=== PATIENT | male | born 1945 | race Caucasian/White ===

== ENCOUNTER 2024-08-05 01:15 | Inpatient (IN) | payer OTHER, SELFPAY ==
[2024-08-04 21:58] VITALS: BMI 32.1
[2024-08-04 22:05] LABS: Glucose - Point of Care 179 mg/dl (70-99)
[2024-08-04 22:07] VITALS: BP 118/97
[2024-08-04 22:13] VITALS: BP 128/92
--- NOTE | 2024-08-04 22:14 | ED.GENMED ---
History of Present Illness
General
Chief Complaint: Chest Pain
Source: patient
Exam Limitations: none
Time Seen by Provider: 08/04/24 22:09
Nursing documentation reviewed up to this point in time: agreed with
History of Present Illness
History of Present Illness:
This is a 79-year-old gentleman with history of hypertension, hyperlipidemia, iqj-pefydry-mwolflham diabetes who presents with substernal chest pain that began around 1 hour ago accompanied with diaphoresis. Chest discomfort described as an ache,
radiates to bilateral arms, somewhat generalized as well as associated with diaphoresis. No history of similar episodes of chest pain. He admits to walking 5 miles today which is a bit longer than his usual 3 mile walk and admits to feeling
somewhat fatigued after his walk this afternoon but no chest pain nor palpitations nor other symptomatology during or after his walk this afternoon.
He denies dizziness nor lightheadedness, denies palpitations, denies shortness of breath.
Daily medications include lisinopril, metformin, atorvastatin.
He took a full-strength aspirin at home prior to arrival.
Past History
Past History
ED Past Medical History: HTN, Hypercholesterolemia, NIDDM and Other (BPH, kidney stones)
ED Past Surgical History: Urological (TURP) and Other (Hernia repair)
Social History
Tobacco: Non-smoker
Alcohol: Occasional
Drug: None
Personal:
Living: with family
Family History
Family History: Other (Noncontributory)
Phy Exam
Physical Exam
Physical Exam:
GENERAL: 79-year-old gentleman appears his stated age, awake and alert, mildly anxious but easily communicative and overall appears in no acute distress. is accompanying.
EYE: anicteric
NECK: Supple, nontender, no meningismus, no significant adenopathy. No JVD.
ENT: posterior pharynx is clear, oral mucosa is minimally dry. No rhinorrhea.
CARDIAC: Irregularly irregular, tachycardic at 120-130, no murmur.
LUNGS: Clear breath sounds bilaterally, no acute respiratory distress, no wheezes/rales/rhonchi
ABDOMEN: Rotund, soft, nondistended, without focal tenderness, normoactive BS.
NEUROLOGICAL: Alert and oriented x3, no focal neuro deficits.
SKIN: Cool and minimally diaphoretic, normal color, skin intact. No rash.
MUSCULOSKELETAL: No C/C/E. peripheral pulses are full and equal b/l. No palpable tenderness.
PSYCH: Normal and appropriate interaction.
Scores
Heart Score for Chest Pain Patients
STEMI patient?: Yes
Course
Orders/Labs/Results
Orders:
Orders
08/04/24 22:00
EKG [Electrocardiogram (*1)] Urgent
Reason for Study: Chest Pain
EKG- Treatment ONCE
08/04/24 22:09
EKG- Treatment ONCE
Complete Blood Count/With Diff Urgent
Comprehensive Metabolic Panel Urgent
Glycohemoglobin (HgbA1c) Urgent
PT/INR [Prothrombin Time] Urgent
Is patient on Coumadin/Warfarin?: No
Comment: [email or web address]
PTT Urgent
Troponin I Urgent
08/04/24 22:20
Metoprolol [Lopressor] 5 mg IV NOW STA
08/04/24 22:34
Verapamil Injectable [Isoptin/Verapamil Injection] 5 mg .ROUTE .STK-MED ONE
08/04/24 22:35
Fentanyl Citrate/Pf [Sublimaze] 100 mcg .ROUTE .STK-MED ONE
Heparin 10,000 units .ROUTE .STK-MED ONE
Heparin 1000 Units/500 ml [Heparin] 1,000 units in 500 ml .ROUTE .STK-MED
Heparin Sodium,Porcine/Ns/Pf [Heparin 2000 Units/1000 ml] 2,000 unit in 1,000 ml .ROUTE .STK-MED
Lidocaine HCl/Pf [Xylocaine-Mpf 1% Vial] 50 mg .ROUTE .STK-MED ONE
Midazolam HCl [Versed] 2 mg .ROUTE .STK-MED ONE
08/04/24 22:36
Nitroglycerin [Tridil] 1,500 mcg .ROUTE .STK-MED ONE
08/04/24 22:58
Heparin 5,000 units .ROUTE .STK-MED ONE
Ticagrelor [Brilinta] 180 mg .ROUTE .STK-MED ONE
08/04/24 23:00
Lidocaine HCl/Pf [Xylocaine-Mpf 1% Vial] 50 mg .ROUTE .STK-MED ONE
08/04/24 23:02
Amiodarone [Cordarone] 150 mg .ROUTE .STK-MED ONE
08/04/24 23:16
EPTIFIBATIDE 75 mg/100 mL [Integrilin] 75,000 mcg in 100 ml .ROUTE .STK-MED
Eptifibatide [Integrilin] 20 ml .ROUTE .STK-MED
08/05/24 00:23
Heparin 1000 Units/500 ml [Heparin] 1,000 units in 500 ml .ROUTE .STK-MED
08/05/24 00:48
Lidocaine HCl/Pf [Xylocaine-Mpf 1% Vial] 100 mg .ROUTE .STK-MED ONE
08/05/24 00:53
Heparin 10,000 units .ROUTE .STK-MED ONE
08/05/24 00:58
Admit Patient As Directed
Co-Sign Provider:
Level of Care: Inpatient admission
Assign to:: IVU
Physician / Group: Ramone/MARISABEL
Diagnosis: STEMI
Patient Condition: Fair
Reason for Hospitalization: STEMI
Expected length of stay greater than two midnights?: Yes
ELOS- Estimated Length of Stay in days: 4
I certify the patient meets the requirements for IP care: Yes
Reason for Overnight Stay: Standard of Care
Electrocardiogram (*1) Urgent
Reason for Study: Other
Other Reason for Exam: s/p intervention
Code Status As Directed
Resuscitation Status: Full Code
CARDIAC REHAB CONSULT Routine
Co-Sign Provider:
Cardiac Rehab & Exercise Evaluation Referral
Type of Cardiac Rehab Referral: Outpatient
Diagnosis: STEMI
Date of Diagnosis/Surgery: 08/05/2023
Referring Provider: Robert Pack
[facility] Intensive Cardiac Rehab Exercise Prescription
The above named person is capable of participating in an intensive cardiac rehab exercise therapy program
under the guidance of the [facility] cardiac rehab staff, outpatient registered dieticians and
supervision of a physician.
ICR Program Objectives:
Provide supervised exercise, cooking classes, nutritional counseling and healthy mind-set education to
improve the function/symptom free work capacity to an optimal level as well as control risk factors to
prevent the progression of heart disease. During the supervised exercise therapy session some or all of
the following may be included in the cardiac rehab session: ECG telemetry, BP, heart rate, rate of
perceived exertion, symptoms/tolerance, cholesterol testing and education. Exercise modalities may
include: treadmill, upright or recumbent bike, spin bike, rowing machine, elliptical, recumbent
elliptical, arm-bike machine, recumbent stepper and free weights.
Intensity:
All CR staff will use ACSM guidelines: Most patients will exercise in the following range: Heart Rate
Soso range of 40% to 80% & Oxygen Uptake reserve range 40-80% (VO2R). Peak heart rate and VO2 are
derived from the cardiac rehab submaximal graded exercise test at RPE of 13/14 out of 20. Initial
intensity range: RPE 11 to 14/20 and may expand to 11 to 16/20.
Duration & Frequency:
If appropriate the patient will be progressed up to 40 minutes of exercise therapy. Patients will be
instructed to come three times a week in cardiac rehab and at a home/other gym to achieve optimal
physical activity/exercies i.e. 4000-10,000 steps per day.
Education:
The patient will receive one-on-one education during their orientation, initial exercise evaluation, ITP
reassessments and discharge session. Each exercise session will also include an education class (30-40
minutes).
Acetaminophen [Tylenol] 650 mg PO Q4HPRN PRN
Morphine Sulfate 2 mg IV Q1HPRN PRN
Oxycodone/Acetaminophen [Percocet 5/325] 1 tablet PO Q4HPRN PRN
Activity As Directed
Activity Level: Bedrest
Comment: refer to hemostasis device used for bedrest duration, then ambulate ad darryl
Fleet Service Clerk Procedure As Directed
Cardiac Cath Procedure: percutaneous coronary intervention
Femoral Artery Hemostasis Method As Directed
Procedure performed:: Percutaneous Coronary Int
Type of femoral hemostasis method used:: Internal Closure Device
Duration of bedrest (hours):: 3
Call provider if:: hematoma present after hemostasis achieved
Head of Bed-Restrictions As Directed
Comment: may elevate head of bed 30 degrees
Intake/ Output As Directed
Frequency: Per unit guidelines
Notify MD As Directed
Notify physician if: immediately for chest pain or bleeding from access site(s)
Site Checks As Directed
Check access site for bleeding/hematoma: Yes
Comment: on arrival, Q15min x4, Q30min x2, Q1 hr x2, Q2 hr x2, Q4 hr or per
protocol
Vascular Checks As Directed
Location: distal to access site - pulse check
Frequency: Other
Comment: on arrival, Q15min x4, Q30min x2, Q1 hr x2, Q2 hr x2, Q4 hr or per protocol
Venous Foot Pumps As Directed
Location: Bilateral feet
Vital Signs As Directed
Frequency: Other
Additional Instructions:: on arrival, Q15min x4, Q30min x2, Q1 hr x2, Q2 hr x2, then Q4 hr or per unit
protocol
PRN Pain Medication Management As Directed
May give lesser potent ordered pain med per pt: Yes
preference::
Protocol:: Medication orders for pain may be administered in a
manner that supports deferring to patient preference
when the pt is:
- Requesting an ordered lesser potent pain medication.
Least to most potent pain medications are defined
as: acetaminophen < NSAID < tramadol < opioids
(morphine, oxycodone, hydromorphone).
- Requesting a lesser dose of the same medication IF
ORDERED.
- Requesting a less intrusive route of administration
if both routes are prescribed by the provider (PO <
IV).
08/05/24 00:59
DX Deep Vein Thrombosis Video Routine
08/05/24 01:00
0.9% Sodium Chloride 1000 ml [Nss] 1,000 ml IV PER PROTOCOL
Infusion rate in mL/kg/hr:: 1.5
Infusion rate in mL/hr:: 127
Duration of infusion (hours):: 5
EPTIFIBATIDE 75 mg/100 mL [Integrilin] 75,000 mcg in 100 ml IV ORDERED RATE
08/05/24 02:00
Flush (0.9% Sodium Chloride) [Flush (Nss)] See Dose Instructions IV PER PROTOCOL
08/05/24 04:33
Basic Metabolic Panel IN AM
Complete Blood Count/No Diff IN AM
Troponin I Q6H
08/05/24 06:00
Echo 2D MMode Color/Doppler IN AM
Reason for Study: STEMI
Electrocardiogram (*1) IN AM
Reason for Study: Other
Other Reason for Exam: s/p intervention
Cholesterol Lowering
At Your Request: Full Participation
Cholesterol Lowering: Sodium, 2 Gram
08/05/24 10:00
Troponin I Q6H
08/05/24 16:00
Troponin I Q6H
08/05/24 18:00
Atorvastatin [Lipitor] 40 mg PO QPM
08/05/24 20:00
Clopidogrel Bisulfate [Plavix] 600 mg PO ONCE ONE
08/05/24 22:00
Troponin I Q6H
08/06/24 01:00
Troponin I Q6H
08/06/24 06:00
Basic Metabolic Panel IN AM
Complete Blood Count/No Diff IN AM
08/06/24 08:00
Clopidogrel Bisulfate [Plavix] 75 mg PO DAILY
08/07/24 06:00
Basic Metabolic Panel IN AM
Complete Blood Count/No Diff IN AM
Abnormal Lab Results
08/04/24 08/04/24
22:02 22:09
WBC 11.9 H 10^3/uL
(4.8-10.8)
Absolute Neuts (auto) 6.9 H 10^3/uL
(1.4-6.5)
Absolute Lymphs (auto) 3.9 H 10^3/uL
(1.2-3.4)
Absolute Monos (auto) 1.0 H 10^3/uL
(0.1-0.6)
Potassium 3.4 L mmol/L
(3.5-5.1)
BUN 25 H mg/dl
(9-20)
Glucose 202 H mg/dl
(70-99)
POC Glucose 179 H mg/dl
(70-99)
08/04/24 22:09
08/04/24 22:09
Vital Signs
Initial and Last Documented VS:
Initial Vital Signs
BP Pulse Ox
118/97 98
08/04/24 22:07 08/04/24 22:07
Last Documented Vital Signs
Temp Pulse Resp BP Pulse Ox
97.5 F 83 20 113/72 98
08/05/24 06:58 08/05/24 06:00 08/05/24 06:58 08/05/24 04:00 08/05/24 06:58
MDM/Problems Addressed
Differential Diagnosis Includes:
EKG shows A-fib with rapid ventricular response at [address] segment elevation inferiorly, reciprocal depression anteriorly consistent with STEMI.
STEMI alert initiated promptly upon review of EKG.
Patient has taken full-strength aspirin at home.
BP somewhat soft 118 systolic. Will hold off on nitroglycerin and given IV normal saline bolus.
IV heparin bolus, chewable Brilinta load has been administered.
Case discussed with Dr. James, awaiting Fleet Service Clerk team and interventional list arrival.
Chronic conditions affecting care: DM, HTN and Other (Hyperlipidemia)
*Pulse Oximetry
Patient hypoxic: no
*EKG
Interpreted by ED Provider?: Yes
Interpretation: abnormal
Comparison EKG: changes noted (Atrial fibrillation with rapid ventricular response as well as acute STEMI/inferior wall [place] are new compared to previous EKG June 2020)
Rate: tachycardiac
Rhythm: a-fib
Interval: normal interval
Ischemia: ST elevation (ST segment elevation inferiorly reciprocal changes inferiorly consistent with STEMI)
*Cable Way Operator Interpretation
Rate: tachycardiac
Interpretation: abnormal
Rhythm: a-fib and PVC's (Multifocal PVCs with few couplets)
*Critical Care Note
Total Time (30-74mins, 75-104mins- exclusive of procedures): 30
comment:
Critical care statement: A total of 30 minutes of critical care time was provided for this patient. This includes management of unstable vital signs, evaluation of the patient at bedside, reviewing the patient's pertinent medical records, discussion
with consultants, review of old EKGs and review of pertinent medical records. This time with separate from time utilized to perform the aforementioned documented procedures
ED Attending Note
-
Portions of this chart may have been created with voice recognition software.� Occasional wrong word or��sound alike� substitutions may have occurred due to the inherent limitations of voice recognition software.
Discharge Plan
Departure
Patient Disposition: Admit
Date of Disposition: 08/04/24
Time of Disposition: 22:25
Admit to: carpenter/labor
Admit to doctor: Ramone
Presentation/result/management discussed w/ accepting MD/DO: cardioinvasive
Condition: Serious
Discharge Problem:
ST elevation (STEMI) myocardial infarction, New onset A-fib with RVR
Interventions
Interventions:
*General Assessment Last Done: 08/04/24 22:37
*ED COVID-19 Vaccine History Last Done: 08/04/24 22:37
*Nursing Disposition Last Done: 08/04/24 23:01
ED- Cardiac Assessment Last Done: 08/04/24 22:17
Discharge Date and Time
Discharge Date/Time: 08/04/24 23:01
[2024-08-04 22:15] LABS: % Basophils 0.3 % (0-2); % Eosinophils 0.5 % (0-6); % Immature Granulocytes 0.3 % (0-0.5); % Lymphocytes 32.5 % (20.5-51.1); % Monocytes 8.7 % (1.7-9.3); % Neutrophils 57.7 % (42.2-75.2); Absolute Eosinophils 0.1 10^3/uL (0-0.7); Absolute Lymphocytes 3.9 10^3/uL (1.2-3.4); Absolute Neutrophils 6.9 10^3/uL (1.4-6.5); Hematocrit 45.4 % (39.0-52.0); Hemoglobin 15.7 g/dL (13.0-18.0); Mean Corp Hgb Conc. 34.6 g/dL (33.0-37.0); Mean Corpuscular Hgb 28.5 pg (27.0-31.0); Mean Corpuscular Volume 82.5 fL (80.0-94.0); Mean Platelet Volume 9.7 fL (7.4-10.4); Nucleated Red Blood Cells % 0 % (-); Platelet Count 162 10^3/uL (130-400); White Blood Cell Count 11.9 10^3/uL (4.8-10.8)
[2024-08-04] MEDS: LOPRESSOR 5 MG IV (22:23)
[2024-08-04 22:27] LABS: INR 0.97; PT 13.4 Sec (11.4-14.6)
[2024-08-04 22:28] LABS: APTT 25.9 Sec (23.4-35.0)
[2024-08-04 22:29] LABS: ALT (SGPT) 27 U/L (0-50); AST (SGOT) 24 U/L (17-59); Albumin 4.3 g/dl (3.5-5.0); Alkaline Phosphatase 59 U/L (38-126); Blood Urea Nitrogen 25 mg/dl (9-20); Carbon Dioxide 29 mmol/L (22-30); Chloride 105 mmol/L (98-107); Estimated Creatinine Clearance 61 ml/min; Glucose 202 mg/dl (70-99); Potassium 3.4 mmol/L (3.5-5.1); Sodium 145 mmol/L (135-145); Total Bilirubin 0.7 mg/dl (0.2-1.3); Total Protein 6.7 g/dl (6.3-8.2); eGFR > 60.00
[2024-08-04 22:31] VITALS: BP 111/83
[2024-08-04 22:39] LABS: Troponin I 0.033 ng/ml
--- NOTE | 2024-08-04 22:40 | HPS.HSE ---
Family Physician
-
Family Physician: Nora Gonzalez
Chief Complaint
-
Chest pain, new atrial fibrillation.
History of Present Illness
79 y/o male with NIDDM, HTN, HLD presenting after developing atypical chest discomfort associated with diaphoresis. The patient and his went on a vigorous 5 mile walk earlier today. Earlier this evening, he developed chest discomfort which he
believed was related to muscle strain. He admitted to an episode of diaphoresis. He discussed the situation with his and they elected to come to [facility] for further evaluation, where he experienced a second episode of diaphoresis. Initial EKG
shows inferoposterior STEMI with new atrial fibrillation with RVR and the clinical lab scientist was activated. At the time of evaluation, his chest discomfort has largely resolved. Denies any palpitations and is unaware that he is in AF.
Medical History
Past Medical History
Past Medical History: Reports HTN, Hypercholesterolemia, NIDDM and Renal Failure (Stage 2)
Past Surgical History: Reports None
Social History
Tobacco: Non-smoker
Alcohol: Occasional
Drug: None
Personal:
Living: With Family
Employment: Retired
Family History
Family History: Not pertinent
Allergies / Home Medications
Allergies reflects when Allergies were last updated in [employer].
Home Medications with original date entered in [employer]
Allergy/Medication List:
Home Medications:
1. Atorvastatin 20 mg daily.
2. Lisinopril/HCTZ 20/12.5 mg daily.
3. Metformin 500 mg BID.
Allergies:
NKDA
Review of Systems
-
History Source: Patient and Family
Constitutional: Reports No Symptoms
EENT: Reports No Symptoms
Respiratory: Reports No Symptoms
Cardiac: Reports Chest Pain and Diaphoresis
Abdomen/GI: Reports No Symptoms
: Reports No Symptoms
Musculoskeletal: Reports Muscle Pain
Skin: Reports No Symptoms
Neurological: Reports No Symptoms
Endocrine: Reports No Symptoms
Hematologic/Lymphatic: Reports No Symptoms
Psych: Reports No Symptoms
Physical Exam
Vital Signs
Vital Signs
Pulse Resp BP Pulse Ox
116 21 128/92 95
08/04/24 22:23 08/04/24 22:15 08/04/24 22:23 08/04/24 22:15
Physical Exam
General: Well Developed, Well Nourished, No Apparent Distress, Comfortable, Conversant and Good Appetite
HEENT: NormoCephalic, Anicteric, Moist mucous membranes, Atraumatic, Good Dentition, PERRLA, [place] Conjunctivae, No Ptosis, Nose Appears Normal and Ears Appear Normal
Respiratory: Clear and Non Labored Respirations
Cardiac: S1/S2, Irregular Rhythm and Tachycardia
Breast: Deferred by me
GI: Soft, Non Tender, Non Distended, Normal Bowel Sounds and No Hepatosplenomegaly
Rectal: Deferred by Provider
Genito-urinary: Deferred by me
Musculoskeletal: No Clubbing, No Cyanosis and No Edema
Skin: Warm and Dry
Neuro: AO x 3, No Motor Deficits, Nonfocal/grossly intact and Cranial Nerves Intact
Hematologic/Lymphatic: No Lymphadenopathy
Psych: Calm and Intact Judgment/Insight
Laboratory Results
-
08/04/24 22:09
08/04/24 22:09
Laboratory Results
PT 13.4 Sec (11.4-14.6) 08/04/24 22:09
INR 0.97 08/04/24 22:09
APTT 25.9 Sec (23.4-35.0) 08/04/24 22:09
Total Bilirubin 0.7 mg/dl (0.2-1.3) 08/04/24 22:09
AST 24 U/L (17-59) 08/04/24 22:09
ALT 27 U/L (0-50) 08/04/24 22:09
Alkaline Phosphatase 59 U/L (38-126) 08/04/24 22:09
Troponin I 0.033 ng/ml 08/04/24 22:09
Data Reviewed
-
Medical Tests (Nuc Med, Echo, EKG etc): Image Personally Visualized and interpreted and Report Reviewed by me
Lab Data: Labs Reviewed by me
Old Records: Reviewed
Impression/Plan
-
Impression/Plan: 79 y/o male with HTN, HLD, NIDDM admitted with inferoposterior STEMI and new atrial fibrillation.
#STEMI
-Acute, threat to life.
-Plan for emergent cardiac catheterization with ad hoc PCI.
-Heparin, aspirin given in ER.
-Consent signed and on the chart.
-Further instructions will follow.
#Atrial fibrillation
-New diagnosis.
-Unclear duration.
-We will establish rate control, likely metoprolol.
-CHADS2-Vasc = 4-5 (HTN, Age x2, DM, presumably vascular disease).
-He will need therapeutic anticoagulation.
-STEMI could be embolic.
#HTN
#HLD
#NIDDM
[2024-08-05] VITALS (16 sets, daily range): BP systolic 95–127; BP diastolic 69–79; BMI 32.1
--- NOTE | 2024-08-05 01:04 | ITS.CL.ANGIO ---
[facility] - Angioplasty
Angioplasty
Procedure Report:
CARDIAC CATHETERIZATION REPORT
Date of Procedure: 08/04/2024
Referring: [facility] emergency room.
INDICATION: Inferoposterior ST elevation myocardial infarction.
PROCEDURE:
1. Left heart catheterization
2. Coronary angiography.
3. Aspiration thrombectomy.
4. Successful CSI orbital atherectomy.
5. Intravascular ultrasound.
6. Successful PCI of the ostial and proximal circumflex.
7. Chemical cardioversion with amiodarone bolus.
A total of 114 minutes of procedural/moderate sedation was utilized. An independent medical office worker was present to assist with and help manage the patient's level of consciousness and physiologic status.
ACCESS:
1. 6 Spanish right common femoral artery using a modified Seldinger technique with a micropuncture kit under ultrasound guidance. Ultrasound image obtained.
CATHETERS:
1. 5 Spanish JR4.
2. 5 Spanish JL 3.5.
3. 6 Spanish EBU 4.0 guiding catheter.
HEMODYNAMIC DATA
Weight (kg): 84.4
AO (s/d/x, mmHg): 97/71/79
LV (s/x mmHg): 97/22
LEFT VENTRICULOGRAPHY: Not performed.
CORONARY ANGIOGRAPHY
Dominance: Right.
Left Main: Normal size, bifurcating vessel. There are luminal irregularities.
LAD: Normal size vessel giving rise to 1 significant diagonal. There is a densely calcified, 70% lesion in the proximal vessel. There are densely calcified, moderate lesions throughout the remainder of the vessel including in the large diagonal.
Ramus: Congenitally absent.
Circumflex: Large size, nondominant vessel giving rise to 2 obtuse marginals. OM1 is a sub-1 mm vessel. OM 2 is a large vessel supplying the majority of the inferolateral wall. There is a densely calcified, 100% lesion in the ostium of the left
circumflex that continues into a densely calcified 70% lesion in the ostium of OM 2. Initially, there is VIJAYA 0 flow in the circumflex on diagnostic injection. Flow has improved to VIJAYA II by the next injection.
RCA: Medium size, dominant vessel with a small RPDA. There is a densely calcified 70% lesion in the proximal margin of the RCA. There is a long, 50% lesion in the mid RCA as it approaches the crux. There is a 50% lesion in the distal RCA
spanning the origin of the RPDA, which is a 1 mm vessel.
INTERVENTION(S)
1. Aspiration thrombectomy of the left circumflex artery.
2. CSI orbital atherectomy of the left circumflex artery and second obtuse marginal (CSI diamondback).
3. Intravascular ultrasound of the left main coronary artery, the proximal left circumflex artery and the proximal margin of OM 2.
4. Successful PCI of the 95% ostial circumflex lesion spanning the 70% lesion into the OM 2 (Medtronic [place] 4.0 x 38 LOLA, postdilated with a 4.0 NC balloon) with reduction in stenosis to 0%, restoring VIJAYA-3 flow.
Narrative:
The decision was made to proceed with percutaneous coronary intervention. The diagnostic catheter was removed over a wire and a 6Fr EBU 4.0 guiding catheter was advanced to the aortic root and seated in the left main coronary artery. Angiography
showed improvement of flow through the ostial left circumflex from VIJAYA 0 to now VIJAYA II without specific intervention. Additional heparin was given and a Power Turn Flex wire was advanced into the distal OM 2.
Given the hazy nature of the lesion with a new diagnosis of atrial fibrillation, I felt compelled to consider the diagnosis of embolic occlusion. The decision was made to perform aspiration thrombectomy. An YANIRA catheter was prepped and flushed on
the back table then connected to a syringe which was pulled to negative. The catheter was advanced into the left main coronary artery. The stopcock was opened to the vacuum syringe and the catheter was passed into the thrombotic segment, though
the ability to progress beyond the lesion was quite limited. The catheter was withdrawn from the guiding catheter, maintaining negative pressure. The contents were emptied into the filter basket. No obvious thrombus was observed. Repeat
angiography showed no significant difference, suggesting that this was not a primary embolic phenomenon.
A 2.0 x 12 semicompliant balloon was advanced, but would not cross the lesion. The semicompliant balloon was withdrawn and a 1.5 x 12 semicompliant balloon was advanced, at this time passing into the lesion with some difficulty. The ostial
circumflex lesion was predilated with a 1.5 x 12 semi-compliant balloon to 12 irving. The 1.5 x 12 semicompliant balloon was withdrawn and the 2.0 x 12 semicompliant balloon was advanced. The lesion was dilated to 12 irving but the balloon ruptured.
The semicompliant balloon was withdrawn and a 2.0 x 20 noncompliant balloon was advanced. The ostial circumflex lesion was dilated to 16 irving. Eptifibatide was started as a double bolus and drip.
At this point, it became very clear that plaque modification would become necessary for meaningful expansion of any stent. A quick cross microcatheter was advanced over the power turn flex wire and into the distal OM 2. The power turn flex wire
was removed and a Viper wire was advanced. The microcatheter was removed.
The CSI orbital atherectomy device was prepped on the back table and flushed with Viper slide. The device was loaded onto the Viper wire and brought up to the level of the catheter. An out of body test was successful. The CSI device was advanced
over the Viper wire up to the level of the coronary artery. Once the crown was positioned in place, orbital atherectomy was performed in the standard fashion with slow smooth passes. After each pass, the patient was given nitroglycerin 100 mcg
intracoronary. Brief angiography was performed to rule out dissection and perforation. The process was repeated 3 times. Ultimately, the crown passed through the densely calcified lesion. The CSI device was withdrawn over the Viper wire.
The Viper wire was exchanged for the power turn Flex wire in the distal OM 2. A BMW wire was advanced into the LAD for protection given the ostial nature of the circumflex lesion and potential for unfavorable plaque shift. A 3.0 x 20 noncompliant
balloon was advanced and the entire circumflex/OM 2 lesion was dilated to 18 irving.
The decision was made to perform intracoronary imaging. An IVUS catheter was advanced through the guiding catheter and into the ostium of the artery. Ring down was performed once the imaging crystal was no longer inside of the guiding catheter. The
IVUS catheter was advanced into the mid OM 2. Intravascular ultrasound was performed in a retrograde fashion using a slow pullback. Intracoronary imaging demonstrated densely calcified atherosclerotic disease disease in the proximal OM 2 and
throughout the entire circumflex all the way back to the ostium, ending at the left main coronary artery. Vessel sizing was performed.
The IVUS catheter was removed and a Medtronic [place] Emery 4.0 x 38 drug-eluting stent was advanced. Unfortunately, the stent would not pass into the distal vessel without support. The BMW wire was withdrawn and a guide liner was advanced over
the 2.0 x 20 NC balloon with a sheathing technique. The guide liner was seated in the circumflex beyond the lesion but proximal to OM 2. With the GuideLiner in place, the stent was readvanced, this time delivering 2 the circumflex/OM 2 with ease.
The GuideLiner was pulled back into the guide. Meticulous care was taken while positioning the stent, ensuring that the entire lesion was covered while the stent extended into the left main coronary artery by only 1 self. Once we were satisfied
with the position, the stent was deployed at 12 atmospheres. Injection of the left main coronary artery while the stent balloon was inflated showed that the left anterior descending artery maintains VIJAYA-3 flow. The stent balloon was removed. A
4.0 x 20 noncompliant balloon was advanced into the stent and the stent was postdilated to 14 atmospheres.
IVUS was repeated demonstrating good stent apposition throughout the entire OM2 and circumflex. There were 2 areas of mild stent underexpansion in the midportion of the stent as well as in the ostium of the stent. The 4.0 x 20 NC balloon was
readvanced. The midportion of the stent was postdilated to 18 irving. The ostium of the stent was postdilated to 20 irving. The noncompliant balloon was withdrawn.
Angiography was performed in orthogonal views, confirming good stent expansion and an excellent angiographic result without unfavorable plaque shift into the LAD. The coronary wire was withdrawn and the guide was disengaged from the artery. The
catheter was removed over a standard J-wire. Given the nebulous nature of the right coronary artery ostial lesion, the decision was made to reimage this artery given his persistent ST segment elevation. The diagnostic JR4 catheter was readvanced
and seated in the ostium of the right coronary artery. An angiogram was taken with partial disengagement in an KUWAITI caudal view, confirming a calcified, 70% lesion with VIJAYA-3 flow throughout the remainder of the vessel.
Closure Device: 6 Spanish Angio-Seal.
Radiation (mGy): 1689.41
DAP (cm2.Gy): 98.0009
Fluoroscopy time (minutes): 28.5
CONCLUSIONS
1. Right dominant circulation with a 70% lesion in the proximal margin of the RCA, along, 50% lesion in the mid RCA as it approaches the crux, a 50% lesion in the distal RCA spanning the origin of the small RPDA, a densely calcified 70% lesion in
the proximal LAD with densely calcified moderate disease throughout the remainder of the LAD and large diagonal and a large size, nondominant circumflex with a densely calcified initially 100% lesion in the ostium that progresses into a densely
calcified 70% lesion in the ostium of OM 2, status post aspiration thrombectomy (YANIRA catheter), CSI orbital atherectomy (CSI diamondback) and successful IVUS guided PCI (Medtronic [place] Emery 4.0 x 38 LOLA, postdilated with a 4.0 NC balloon) with
reduction in the circumflex stenoses to 0%, restoring VIJAYA-3 flow.
2. Moderately elevated filling pressures (LVEDP = 22 mmHg at 84.4 kg).
3. Paroxysmal atrial fibrillation, converted after amiodarone bolus.
RECOMMENDATIONS:
1. Expectant management after cardiac catheterization via right common femoral approach.
2. Limited weight bearing on the right wrist for one week.
3. Antiplatelet therapy with aspirin, eptifibatide. The patient received ticagrelor in the emergency room. Given his paroxysmal atrial fibrillation which will require anticoagulation, we will hold further ticagrelor and load clopidogrel tomorrow
evening (600 mg at 8 PM) followed by a standard dose on 08/06/2024 at 8 AM. Maintain clopidogrel for at least 12 months.
4. Plan for return to [facility] for further evaluation of the proximal and mid RCA lesions as well as the proximal LAD lesion. The LAD appears a reasonable surgical target. The RPDA is generally a small caliber vessel in its distal margin.
5. Given the patient's paroxysmal atrial fibrillation with planned return to [facility], any further atrial fibrillation should be managed with a heparin drip. When procedures have concluded, we can transition to a direct oral anticoagulant and
discontinue aspirin.
6. Aggressive secondary prevention with high-dose, high potency statin. Goal LDL <55.
7. GDMT/OMT as hemodynamics will tolerate.
8. Echocardiogram ordered and pending.
9. Referral to cardiac rehab.
Copy to: Nora Gonzalez M.D.
Robert Pack DO, FACC, FACP
--- NOTE | 2024-08-05 03:23 | DOWNTIME ---
There was a Second Sight Client Wheel Cutter Downtime on 08/05/2024 from 0200 to 08/06/2023 at 0318 . Downtime documentation of patient's care, including medication administrations, has been reconciled in the electronic record per guidelines. Refer to the
patient's paper chart under the miscellaneous tab to see printed paper medication records and downtime forms.
[2024-08-05 04:48] LABS: Hematocrit 42.1 % (39.0-52.0); Hemoglobin 14.6 g/dL (13.0-18.0); Mean Corp Hgb Conc. 34.7 g/dL (33.0-37.0); Mean Corpuscular Hgb 28.7 pg (27.0-31.0); Mean Corpuscular Volume 82.7 fL (80.0-94.0); Platelet Count 161 10^3/uL (130-400); Red Blood Cell Count 5.09 10^6/uL (4.70-6.10); White Blood Cell Count 12.6 10^3/uL (4.8-10.8)
[2024-08-05] MEDS: INTEGRILIN 100 IV ×2 (04:49→11:56)
--- NOTE | 2024-08-05 04:53 | PTCARENOTE ---
Pt assisted oob to void. gait steady. No c/o cp. Pt does have dry cough and mild indigestion. Right femoral site remains intact no active bleeding or hematoma. am labs sent. Integrilin drip continued.
[2024-08-05 05:14] LABS: Blood Urea Nitrogen 23 mg/dl (9-20); Calcium 8.9 mg/dl (8.4-10.2); Carbon Dioxide 25 mmol/L (22-30); Chloride 108 mmol/L (98-107); Estimated Creatinine Clearance 76 ml/min; Glucose 222 mg/dl (70-99); Potassium 3.5 mmol/L (3.5-5.1); Sodium 144 mmol/L (135-145); eGFR > 60.00
--- NOTE | 2024-08-05 07:15 | W.PN.CD ---
Today's Communication / Plan
-
Start metoprolol succinate 25 mg daily.
Maintain eptifabitide for a total of 18 hours.
Load with clopidogrel 600 mg at 8PM.
Continue aspirin 81 mg daily.
Echocardiogram pending.
NPO after MN for possible repeat cath/PCI of LAD/RCA tomorrow. This may be deferred.
Hold metformin.
SSI for glucose.
Fasting lipid panel.
Trend troponin to peak.
Impression / Plan
-
Impression/Plan: 79 y/o male with HTN, HLD, NIDDM admitted with inferoposterior STEMI and new atrial fibrillation.
#STEMI
-Acute, threat to life.
-S/P CSI, PCI to ostial LCx (Medtronic [place] 4.0 x 38 LOLA, post dilated with 4.0 NCB) with reduction in stenosis to 0%, restorting VIJAYA III flow.
-Troponin up to 74. Trend to peak.
-Complicated antiplatelet picture in the context of new atrial fibrillation. Continue aspirin 81 mg daily for the time being. Hold further ticagrelor. Clopidogrel 600 mg load at 8 PM, then 75 mg daily thereafter.
-The patient will require therapeutic anticoagulation for PAF but also needs staged procedures. When therapeutic AC is started, we will D/C aspirin.
-Maintain eptifibatide for a total of 18 hours.
-Echocardiogram pending.
#Residual CAD
-Chronic.
-70+%, densely calcified proximal LAD, 70% proximal RCA, 50% mRCA, 50% dRCA.
-Discussed with CTS and IC colleagues.
-Tentative plan for staged PCI revascularization of the LAD and RCA on a date TBD.
-NPO after MN for possible PCI tomorrow, though this may be deferred to an elective, outpatient procedure within the next 2 weeks.
#Atrial fibrillation
-New diagnosis, unclear duration.
-Currently in NSR.
-Start metoprolol succinate 25 mg daily.
-CHADS2-Vasc = 4-5 (HTN, Age x2, DM, presumably vascular disease).
-He will need therapeutic anticoagulation but this is being held until final determination is made regarding timing of staged PCI.
#HTN
-Chronic, currently controlled.
-Monitor response to metoprolol prior to resuming home medications.
#HLD
-Chronic.
-Fasting lipid panel pending.
-Increased atorvastatin dose from 20 mg to 40 mg daily.
-Goal LDL < 55.
#NIDDM
-Chronic.
-HbA1c pending.
-Hold metformin for the time being in light of contrast exposure.
-SSI.
-He would benefit from GLP-1 analog at the time of discharge.
#PPx
-SCD's for DVT/VTE.
-No role for PPI.
#Dispo
-IVU status.
-Full code.
Subjective/Interval History:
Admitted with inferoposterior STEMI, found to have at least moderate, diffuse disease with an acute occlusion of the ostial LCx.
Successful PCI with adventist of VIJAYA III flow.
Troponin up to 74.
DATA:
Cardiac Catheterization/PCI, 08/04/2024:
CONCLUSIONS
1. Right dominant circulation with a 70% lesion in the proximal margin of the RCA, along, 50% lesion in the mid RCA as it approaches the crux, a 50% lesion in the distal RCA spanning the origin of the small RPDA, a densely calcified 70% lesion in
the proximal LAD with densely calcified moderate disease throughout the remainder of the LAD and large diagonal and a large size, nondominant circumflex with a densely calcified initially 100% lesion in the ostium that progresses into a densely
calcified 70% lesion in the ostium of OM 2, status post aspiration thrombectomy (YANIRA catheter), CSI orbital atherectomy (CSI diamondback) and successful IVUS guided PCI (Medtronic [place] 4.0 x 38 LOLA, postdilated with a 4.0 NC balloon) with
reduction in the circumflex stenoses to 0%, restoring VIJAYA-3 flow.
2. Moderately elevated filling pressures (LVEDP = 22 mmHg at 84.4 kg).
3. Paroxysmal atrial fibrillation, converted after amiodarone bolus.
Physical Exam
Vital Signs/Labs
Vital Signs
Temp Pulse Resp BP Pulse Ox
36.4 C 83 20 113/72 98
08/05/24 06:58 08/05/24 06:00 08/05/24 06:58 08/05/24 04:00 08/05/24 06:58
08/03/24 08/04/24 08/05/24
11:59 11:59 11:59
Actual Weight 84.7 kg
08/05/24 04:33
08/05/24 04:33
PT 13.4 Sec (11.4-14.6) 08/04/24 22:09
INR 0.97 08/04/24 22:09
APTT 25.9 Sec (23.4-35.0) 08/04/24 22:09
LAB Results
08/04/24 08/05/24
22:09 04:33
Troponin I 0.033 74.600 H* D
Physical Exam
Constitutional: No acute distress and Comfortable
EENT: Anicteric and Moist mucous membranes
Cardiovascular: Rhythm & rate is regular, Pedal edema is absent, JVD pressure is normal, S1S2 is normal and Murmur/rub/gallop absent
Respiratory: Respiratory effort normal, Lungs clear to auscul., Wheeze Absent, Crackles Absent and Rhonchi Absent
GI: Soft, Distention absent, Flat, Non tender and Normal bowel sounds
Neuro/Psych: AO x 3
Other: Cath Site (Right femoral access site is C/D/I.)
Data Reviewed
-
Date of Service: August 05, 2024
Medical Decision Making: Reviewed Test Results, Tests Ordered, Independent Historian Assessment and Test Interpretation
EKG: Tracing Personally Visualized and interpreted and Report Reviewed by me
Echo: Ordered by me
X-Ray/CT/US/MRI/NUC/PET: Image Personally Visualized and interpreted and Report Reviewed by me
Medical Tests (PFT, Pathology etc): Image Personally Visualized and interpreted, Report Reviewed by me, Discussed with Physician, Discussed with Patient and Discussed with Family
Labs: Labs Reviewed by me and Labs Ordered by me
Old Records: Reviewed
[2024-08-05 08:23] LABS: HDL Cholesterol 44 mg/dl; LDL Cholesterol, Calculated 76 mg/dl; Total Cholesterol 144 mg/dl (50-199); Triglyceride 122 mg/dl (10-149); Very Low Density Lipoprotein 24 mg/dl (0-30)
[2024-08-05] MEDS: LOW STRENGTH ASPIRIN 81 MG PO (08:53)
[2024-08-05] MEDS: TOPROL XL 25 MG PO (08:53)
--- NOTE | 2024-08-05 09:29 | CM ---
Priced the following medication thru patient's insurance plan, -
Wolf, estimated to cost $145/30 d supply.
Pt. would qualify for a free 30 d coupon. He is not eligible for any other coupons.
[2024-08-05 10:21] LABS: Glycohemoglobin (HgbA1c) 8.6 % (4.0-5.6)
[2024-08-05 10:38] LABS: Glucose - Point of Care 195 mg/dl (70-99)
--- NOTE | 2024-08-05 12:07 | PTCARENOTE ---
Rec'd pt at handoff. Tele- SR w/ occ. PVCs. Assessment completed as documented. R groin is c/d/i and ecchymotic. No hematoma/bleeding noted. Integrilin gtt infusing at 13 ml/hr per order. See MAR. Pt ambulatory around room w/ no complaints at this
time. Plan of care reviewed w/ pt and verbalizes understanding.
--- NOTE | 2024-08-05 12:22 | CM ---
CM following for DC planning needs.
Met w/ patient at bedside to complete initial assessment.
Pt. resides in a private, [address] [place] [address] w/ spouse. He is functionally indep. at baseline w/ ADLs, mobility without the use of any assisted device.
Pt. has RX plan and uses [facility] in [place] for prescription needs.
We discussed cost of Eliquis for both 30 d and 90 d pricing. I encouraged pt. to discuss any concerns or questions w/ medical team.
Antic. DC plan is for home without needs.
Will follow.
[2024-08-05] MEDS: KCL 20 MEQ PO (14:32)
[2024-08-05 14:36] LABS: Glucose - Point of Care 203 mg/dl (70-99)
[2024-08-05] MEDS: NOVOLOG FLEXPEN-MODERATE RESISTANCE 3 UNITS SC (14:38)
[2024-08-05 16:41] LABS: Glucose - Point of Care 157 mg/dl (70-99)
[2024-08-05] MEDS: LIPITOR 40 MG PO (17:58)
[2024-08-05] MEDS: NOVOLOG FLEXPEN-MODERATE RESISTANCE 1 UNITS SC (18:25)
[2024-08-05 18:29] LABS: Glucose - Point of Care 173 mg/dl (70-99)
[2024-08-05] MEDS: PLAVIX 600 MG PO (20:36)
--- NOTE | 2024-08-05 21:44 | PTCARENOTE ---
Rec'd pt at change of shift. Pt AAO*3, VSS, and SR on TELE monitor with PVC's. Pt denies any pain or discomfort. R femoral site CDI, pt verbalized understanding of activity restriction. Pt resting with call joseph in reach and NPO at midnight for
possible cath in AM. Pt now resting with call joseph in reach and plan of care ongoing. See MAR and flowchart for full pt care and assessment.
[2024-08-05 22:15] LABS: Glucose - Point of Care 174 mg/dl (70-99)
[2024-08-06] VITALS (23 sets, daily range): BP systolic 91–144; BP diastolic 66–100; BMI 31.8
[2024-08-06 03:41] LABS: Hematocrit 41.4 % (39.0-52.0); Hemoglobin 14.2 g/dL (13.0-18.0); Mean Corp Hgb Conc. 34.3 g/dL (33.0-37.0); Mean Corpuscular Hgb 28.4 pg (27.0-31.0); Mean Corpuscular Volume 82.8 fL (80.0-94.0); Mean Platelet Volume 10.2 fL (7.4-10.4); Platelet Count 160 10^3/uL (130-400); Red Cell Dist. Width 14.6 % (11.5-14.5); White Blood Cell Count 13.1 10^3/uL (4.8-10.8)
[2024-08-06 04:01] LABS: Blood Urea Nitrogen 22 mg/dl (9-20); Calcium 9.6 mg/dl (8.4-10.2); Carbon Dioxide 21 mmol/L (22-30); Chloride 112 mmol/L (98-107); Estimated Creatinine Clearance 76 ml/min; Glucose 189 mg/dl (70-99); Potassium 3.9 mmol/L (3.5-5.1); Sodium 142 mmol/L (135-145); eGFR > 60.00
--- NOTE | 2024-08-06 07:44 | W.PN.CD ---
Today's Communication / Plan
-
Staged PCI of LAD today. Anticipate staged iFR/PCI of RCA in ~ 2 weeks.
D/C aspiring and start DOAC (apixaban 5 mg BID) tonight vs. tomorrow morning.
Start dapagliflozin 10 mg daily. Case management consult for medication costs.
Start lisinopril 2.5 mg daily.
Repeat echo in 90 days.
Impression / Plan
-
Impression/Plan: 79 y/o male with HTN, HLD, NIDDM admitted with inferoposterior STEMI and new atrial fibrillation.
#STEMI
-Acute, threat to life.
-S/P CSI, PCI to ostial LCx (Medtronic [place] 4.0 x 38 LOLA, post dilated with 4.0 NCB) with reduction in stenosis to 0%, restorting VIJAYA III flow.
-Troponin peaked at 76.
-Continue DAPT with aspirin and clopidogrel. This will be transitioned to clopidogrel and DOAC (no aspirin) post PCI. First dose of DOAC can be this evening after hemostasis achieved or tomorrow morning.
-Continue metoprolol, atorvastatin.
#Residual CAD
-Chronic.
-70+%, densely calcified proximal LAD, 70% proximal RCA, 50% mRCA, 50% dRCA.
-Discussed with CTS and IC colleagues.
-Tentative plan for staged PCI revascularization of the LAD today.
-Outpatient/elective repeat cath with iFR/PCI of the RCA in ~ 2 weeks.
#ICMO
-New diagnosis.
-LVEF 45%
-Severe diastolic dysfunction on echo.
-Continue metoprolol.
-Start dapagliflozin 10 mg daily and lisinopril 2.5 mg daily.
-We can start furosemide if he shows clinical evidence of HF.
-Repeat echocardiogram in 90 days.
#Atrial fibrillation
-New diagnosis, unclear duration.
-Currently in NSR.
-Start metoprolol succinate 25 mg daily.
-CHADS2-Vasc = 4-5 (HTN, Age x2, DM, presumably vascular disease).
-He will need therapeutic anticoagulation but this is being held until final determination is made regarding timing of staged PCI.
#HTN
-Chronic, currently controlled.
-Monitor response to metoprolol prior to resuming home medications.
#HLD
-Chronic.
-Total cholesterol = 144, LDL = 76, HDL = 44, Triglycerides = 122.
-Continue atorvastatin 40 mg daily.
-Goal LDL < 55.
#NIDDM
-Chronic.
-HbA1c 8.6%.
-Hold metformin for the time being in light of contrast exposure.
-SSI.
-Starting dapagliflozin 10 mg daily for ICMO.
-He would benefit from GLP-1 analog at the time of discharge.
#PPx
-SCD's for DVT/VTE.
-No role for PPI.
#Dispo
-IVU status.
-Full code.
-Discharge planning (likely tomorrow).
Subjective/Interval History:
Loaded with clopidogrel yesterday evening.
Eptifibatide completed.
Troponin peaked at 76.4.
Echo shows LCx hypokinesis/akinesis and stage 3 diastolic dysfunction.
DATA:
Cardiac Catheterization/PCI, 08/04/2024:
CONCLUSIONS
1. Right dominant circulation with a 70% lesion in the proximal margin of the RCA, along, 50% lesion in the mid RCA as it approaches the crux, a 50% lesion in the distal RCA spanning the origin of the small RPDA, a densely calcified 70% lesion in
the proximal LAD with densely calcified moderate disease throughout the remainder of the LAD and large diagonal and a large size, nondominant circumflex with a densely calcified initially 100% lesion in the ostium that progresses into a densely
calcified 70% lesion in the ostium of OM 2, status post aspiration thrombectomy (YANIRA catheter), CSI orbital atherectomy (CSI diamondback) and successful IVUS guided PCI ([employer] [place] 4.0 x 38 LOLA, postdilated with a 4.0 NC balloon) with
reduction in the circumflex stenoses to 0%, restoring VIJAYA-3 flow.
2. Moderately elevated filling pressures (LVEDP = 22 mmHg at 84.4 kg).
3. Paroxysmal atrial fibrillation, converted after amiodarone bolus.
Transthoracic Echocardiogram ,08/05/2024:
CONCLUSIONS
Normal LV size with mildly reduced systolic function.
LVEF is 45-50% by Mohamud's method of discs. Circumflex territory
hypo/akinesis.
Stage III diastolic dysfunction suggestive of restrictive filling pattern and
increased filling pressures.
Normal right ventricular size and function.
Mild to moderate aortic regurgitation.
Mild to moderate tricuspid regurgitation.
Estimated pulmonary artery pressure of 53 mmHg assuming a right atrial pressure
of 3 mmHg.
No prior study available for comparison.
Physical Exam
Vital Signs/Labs
Vital Signs
Temp Pulse Resp BP Pulse Ox
36.6 C 73 20 113/67 93
08/06/24 07:40 08/06/24 06:00 08/06/24 07:40 08/06/24 03:10 08/06/24 07:40
08/04/24 08/05/24 08/06/24
11:59 11:59 11:59
Actual Weight 84.7 kg 84.1 kg
08/06/24 03:19
08/06/24 03:19
PT 13.4 Sec (11.4-14.6) 08/04/24 22:09
INR 0.97 08/04/24 22:09
APTT 25.9 Sec (23.4-35.0) 08/04/24 22:09
Triglycerides 122 mg/dl (10-149) 08/05/24 04:33
LDL Cholesterol, Calc 76 mg/dl 08/05/24 04:33
VLDL Cholesterol, Calc 24 mg/dl (0-30) 08/05/24 04:33
HDL Cholesterol 44 mg/dl 08/05/24 04:33
LAB Results
08/04/24 08/05/24 08/05/24
22:09 04:33 10:47
Troponin I 0.033 74.600 H* D 76.400 H*
08/05/24 08/05/24 08/06/24
16:04 22:09 03:19
Troponin I 58.600 H* 47.000 H* 37.700 H*
Physical Exam
Constitutional: No acute distress and Comfortable
EENT: Anicteric and Moist mucous membranes
Cardiovascular: Rhythm & rate is regular, Pedal edema is absent, JVD pressure is normal, S1S2 is normal and Murmur/rub/gallop absent
Respiratory: Respiratory effort normal, Lungs clear to auscul., Wheeze Absent, Crackles Absent and Rhonchi Absent
GI: Soft, Distention absent, Flat, Non tender and Normal bowel sounds
Neuro/Psych: AO x 3
Other: Cath Site (Right femoral access site is C/D/I.)
Data Reviewed
-
Date of Service: August 06, 2024
Medical Decision Making: Reviewed Test Results, Independent Historian Assessment and Test Interpretation
EKG: Tracing Personally Visualized and interpreted and Report Reviewed by me
Echo: Tracing Personally Visualized and interpreted and Report Reviewed by me
X-Ray/CT/US/MRI/NUC/PET: Image Personally Visualized and interpreted and Report Reviewed by me
Medical Tests (PFT, Pathology etc): Image Personally Visualized and interpreted, Report Reviewed by me, Discussed with Physician, Discussed with Patient and Discussed with Family
Labs: Labs Reviewed by me
Old Records: Reviewed
[2024-08-06] MEDS: LOW STRENGTH ASPIRIN 81 MG PO (08:21)
[2024-08-06] MEDS: TOPROL XL 25 MG PO ×2 (08:21→21:31)
[2024-08-06] MEDS: PLAVIX 75 MG PO (08:21)
[2024-08-06 08:51] LABS: Glucose - Point of Care 217 mg/dl (70-99)
[2024-08-06] MEDS: NOVOLOG FLEXPEN-MODERATE RESISTANCE 3 UNITS SC ×2 (08:51→12:03)
--- NOTE | 2024-08-06 09:56 | CM ---
Priced Farxiga thru patient's pharmacy plan- [phone].
Estimated cost of Farxiga will be $143.90/mo.
Pt. would qualify for a free 30 d coupon but no savings cards beyond this.
TT to [employer] Operator to notify.
Farxiga + Eliquis will be approx. $290/mo.
--- NOTE | 2024-08-06 11:42 | CM ---
CM following for DC planning needs.
Met w/ patient at bedside. 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
Reviewed cost of medication again. Encouraged him to speak w/ medical team re: this.
Had no concerns at this time or antic. DC needs.
Antic. DC to home without needs.
[2024-08-06 11:56] LABS: Hepatitis C Antibody Negative (Negative)
[2024-08-06 12:04] LABS: Glucose - Point of Care 213 mg/dl (70-99)
--- NOTE | 2024-08-06 12:07 | PTCARENOTE ---
Pt w/ temp of 100.1 F. Pt also with new non-prod. dry cough. Dahiana Arevalo notified and covid/flu swab ordered and CXR.
[2024-08-06 12:36] LABS: COVID-19 Antigen Negative (Negative)
[2024-08-06 15:42] LABS: ACT-LR - POC 337 Seconds (116-155)
[2024-08-06 16:06] LABS: ACT-LR - POC 263 Seconds (116-155)
[2024-08-06 17:01] LABS: Glucose - Point of Care 187 mg/dl (70-99)
--- NOTE | 2024-08-06 17:01 | ITS.CL.PN ---
Global Product Manager - Procedure Note
Procedure
Procedure Note:
CARDIAC CATHETERIZATION REPORT
Date of Procedure: 08/06/2024
Referring: Dr. Robert Pack DO
Indication: complete revascularization s/p STEMI
PROCEDURE(S)
1. PCI with LOLA to LAD
2. POBA of LCx
3. IVUS LAD
4. IVUS LCx
ACCESS: 7F left common femoral artery (closure: Perclose x1)
CATHETER: 7F EBU 3.75 guide catheter
MODERATE SEDATION: 45 minutes of moderate sedation was utilized. An independent medical laboratory technicians was present to assist with and help manage the patient's level of consciousness and physiologic status.
HEMODYNAMIC DATA
AO 113/70 (mean 90) mmHg
CORONARY ANGIOGRAPHY: Unchanged from prior angiography as described 08/05/2024
IVUS-guided PCI with LOLA to LAD and POBA of LCx
The left main was engaged with a 7 [place] EBU 3.75 guide catheter. Heparin was given to achieve ACT greater than 300. A Runthrough wire was placed in the distal LAD and a BMW wire placed in the circumflex. Initial lesion preparation was performed
with a 2.5 mm semicompliant balloon with full expansion. IVUS was performed demonstrating a 3.5 mm reference vessel diameter with nonconcentric calcification. Further lesion preparation was performed with a 3.5 mm NC balloon which was noted to
inflate fully in orthogonal projections. An Rafa [place] 3.5 x 22 mm drug-eluting stent was selected and deployed at 14 irving ostially. Post dilation was performed with a 3.5 x 15 NC balloon taken to 16 irving. Kissing balloon inflation was performed
with a second 3.5 mm NC balloon over the circumflex wire with both balloons simultaneously inflated to 12 irving and simultaneously deflated to avoid deformation of the neocarina. Final IVUS was performed in both the LAD and circumflex demonstrating
full stent expansion with a minimal neocarina and no underexpansion of the proximal stent edges. Final angiography demonstrated an excellent result. The wires and guide were removed and the groin closed with Perclose x 1.
RADIATION: dose 893 mGy; DAP 84 Gy*cm2; fluoroscopy time 13.3 min
CONCLUSION: Successful IVUS-guided PCI with LOLA to LAD ([place] 3.5 x 22 mm drug-eluting stent) with POBA of the ostial LCx stent to achieve kissing balloon inflation at the neocarina (3.5 NC balloons in both the LAD and LCx).
RECOMMENDATIONS: Restart Eliquis tomorrow. Continue with Plavix/Eliquis on discharge (no ASA). Plan for staged iFR+/-PCI to RCA in ~2 weeks.
Copy to: Dr. Robert Pack DO (railcar switcher); Dr. Nora Gonzalez MD (PCP)
Signed: Antwon Méndez MD, PhD
--- NOTE | 2024-08-06 17:22 | PTCARENOTE ---
Rec'd pt from test lab technician. L groin w/ slight ooze on dsg during test lab technician handoff. Drg circled w/ black marker. Activity restrictions reviewed w/ pt and verbalizes understanding. EKG obtained. Pt has no complaints at this time. Currently in bed; call
opal w/in reach.
[2024-08-06] MEDS: NOVOLOG FLEXPEN-MODERATE RESISTANCE 1 UNITS SC (18:42)
[2024-08-06 20:08] LABS: Hematocrit 38.4 % (39.0-52.0); Hemoglobin 13.7 g/dL (13.0-18.0); Mean Corp Hgb Conc. 35.7 g/dL (33.0-37.0); Mean Corpuscular Hgb 28.9 pg (27.0-31.0); Mean Platelet Volume 9.9 fL (7.4-10.4); Platelet Count 137 10^3/uL (130-400); Red Blood Cell Count 4.74 10^6/uL (4.70-6.10); Red Cell Dist. Width 14.5 % (11.5-14.5); White Blood Cell Count 13.2 10^3/uL (4.8-10.8)
[2024-08-06] MEDS: LIPITOR 40 MG PO (21:31)
[2024-08-06 21:40] LABS: Glucose - Point of Care 194 mg/dl (70-99)
--- NOTE | 2024-08-06 21:45 | PTCARENOTE ---
Rec'd pt at change of shift. VSS, SR on TELE monitor, and AAO*3, but forgetful to activity restrictions. L femoral artery dressing saturated. Manual pressure held for 25 minutes by previous shift. Pt continued to be forgetful of directions and
activity restrictions at this time. Pt lying flat and dressing CDI with hemostasis pad. Dr Snow spoke with family and pt about bleeding, activity restrictions, and addressed confusion. Thought to be from lack of sleep and sedatives given during
cath procedure, according to . Pt denied any pain or discomfort at this time.
At 19:26 pt noticed to be off TELE monitor. Walking into pt room, pt was found to be standing at bedside in puddle of urine without gown and in process of taking off TELE monitor. RN sat pt at bedside changed gown, TELE leads, and cleaned pt at
this time. Groin site CDI despite pt not complying with activity restriction. Neuro assessment performed at this time (see flowchart). Pt able to answer questions related to orientation, able to accurately describe place, time, self, , and
procedure preformed. Neuro assessment negative for any abnormalities or deficits. Pt denied any pain or discomfort at this time.
Dr. Mullen messaged at this time. Rec'd telephone order for stat CT of head without contrast. Stat CBC order rec'd. Pt escorted down to CT scan on TELE monitor by RN via stretcher. Pt AAO*3, maintaining appropriate conversations, and obeying
commands for entire time departing and arriving to CT scan and back to unit. Pt denied any pain or discomfort at this time.
Once back on unit pt continues TELE monitoring. VSS. AAO*3. Pt resting flat in bed with at bedside reminding pt of activity restrictions and bleeding precautions. Pt now resting with bed alarm activated and call joseph in reach. Plan of care
ongoing.
[2024-08-07 06:00] VITALS: BMI 31.8
[2024-08-07 06:01] VITALS: BP 134/82
[2024-08-07 06:04] VITALS: BP 134/82
[2024-08-07 06:29] LABS: Hemoglobin 13.1 g/dL (13.0-18.0); Mean Corp Hgb Conc. 34.5 g/dL (33.0-37.0); Mean Corpuscular Hgb 28.6 pg (27.0-31.0); Mean Platelet Volume 10.8 fL (7.4-10.4); Platelet Count 144 10^3/uL (130-400); Red Blood Cell Count 4.58 10^6/uL (4.70-6.10); Red Cell Dist. Width 14.5 % (11.5-14.5); White Blood Cell Count 10.7 10^3/uL (4.8-10.8)
[2024-08-07 06:43] LABS: Blood Urea Nitrogen 21 mg/dl (9-20); Calcium 8.7 mg/dl (8.4-10.2); Carbon Dioxide 23 mmol/L (22-30); Chloride 111 mmol/L (98-107); Estimated Creatinine Clearance 76 ml/min; Glucose 177 mg/dl (70-99); Potassium 3.8 mmol/L (3.5-5.1); Sodium 142 mmol/L (135-145); eGFR > 60.00
[2024-08-07 07:51] VITALS: BP 102/64
[2024-08-07 07:55] LABS: Glucose - Point of Care 166 mg/dl (70-99)
[2024-08-07] MEDS: ZESTRIL 2.5 MG PO (08:11)
[2024-08-07] MEDS: LOW STRENGTH ASPIRIN 81 MG PO (08:11)
[2024-08-07] MEDS: PLAVIX 75 MG PO (08:12)
[2024-08-07] MEDS: TOPROL XL 25 MG PO (08:12)
[2024-08-07 08:16] VITALS: BP 123/93
[2024-08-07] MEDS: NOVOLOG FLEXPEN-MODERATE RESISTANCE SC (08:20)
--- NOTE | 2024-08-07 10:03 | W.PN.CD ---
Today's Communication / Plan
-
OK to d/c
Eliquis Plavix on d/c
Cont meds
Cath in ~ 2 weeks for eval of RCA
Impression / Plan
-
Impression/Plan: 79 y/o male with HTN, HLD, NIDDM admitted with inferoposterior STEMI and new atrial fibrillation.
#STEMI
-Acute, threat to life.
-S/P CSI, PCI to ostial LCx (Medtronic [place] 4.0 x 38 LOLA, post dilated with 4.0 NCB) with reduction in stenosis to 0%, restorting VIJAYA III flow.
-Troponin peaked at 76.
-d/c will be plavix and eliquis
-Continue metoprolol, atorvastatin.
#Residual CAD
-Chronic.
-70+%, densely calcified proximal LAD, 70% proximal RCA, 50% mRCA, 50% dRCA.
-s/p LAD PCI 08/06
-Outpatient/elective repeat cath with iFR/PCI of the RCA in ~ 2 weeks.
#ICMO
-New diagnosis.
-LVEF 45%
-Severe diastolic dysfunction on echo.
-Continue metoprolol.
-Start dapagliflozin 10 mg daily and lisinopril 2.5 mg daily.
-We can start furosemide if he shows clinical evidence of HF.
-Repeat echocardiogram in 90 days.
#Atrial fibrillation
-New diagnosis, unclear duration.
-back in rate controlled AF
-Start metoprolol succinate 25 mg daily.
-CHADS2-Vasc = 4-5 (HTN, Age x2, DM, presumably vascular disease).
-He will need therapeutic anticoagulation but this is being held until final determination is made regarding timing of staged PCI.
#HTN
-Chronic, currently controlled.
-Monitor response to metoprolol prior to resuming home medications.
#HLD
-Chronic.
-Total cholesterol = 144, LDL = 76, HDL = 44, Triglycerides = 122.
-Continue atorvastatin 40 mg daily.
-Goal LDL < 55.
#NIDDM
-Chronic.
-HbA1c 8.6%.
-Hold metformin for the time being in light of contrast exposure.
-SSI.
-Starting dapagliflozin 10 mg daily for ICMO.
-He would benefit from GLP-1 analog at the time of discharge.
#Delirium
- resolved
- likely related to sedation and lack of sleep
- aaox3 today doesn't remember some events of last evening but slept better
- CTH no stroke
#PPx
-SCD's for DVT/VTE.
-No role for PPI.
#Dispo
-IVU status.
-Full code.
-Discharge planning (likely tomorrow).
Subjective/Interval History:
s/p PCI; delirium yesterday evening likely related to sedation and lack of sleep --> Resolved
DATA:
Cardiac Catheterization/PCI, 08/04/2024:
CONCLUSIONS
1. Right dominant circulation with a 70% lesion in the proximal margin of the RCA, along, 50% lesion in the mid RCA as it approaches the crux, a 50% lesion in the distal RCA spanning the origin of the small RPDA, a densely calcified 70% lesion in
the proximal LAD with densely calcified moderate disease throughout the remainder of the LAD and large diagonal and a large size, nondominant circumflex with a densely calcified initially 100% lesion in the ostium that progresses into a densely
calcified 70% lesion in the ostium of OM 2, status post aspiration thrombectomy (YANIRA catheter), CSI orbital atherectomy (CSI diamondback) and successful IVUS guided PCI (Medtronic [place] 4.0 x 38 LOLA, postdilated with a 4.0 NC balloon) with
reduction in the circumflex stenoses to 0%, restoring VIJAYA-3 flow.
2. Moderately elevated filling pressures (LVEDP = 22 mmHg at 84.4 kg).
3. Paroxysmal atrial fibrillation, converted after amiodarone bolus.
Transthoracic Echocardiogram ,08/05/2024:
CONCLUSIONS
Normal LV size with mildly reduced systolic function.
LVEF is 45-50% by Mohamud's method of discs. Circumflex territory
hypo/akinesis.
Stage III diastolic dysfunction suggestive of restrictive filling pattern and
increased filling pressures.
Normal right ventricular size and function.
Mild to moderate aortic regurgitation.
Mild to moderate tricuspid regurgitation.
Estimated pulmonary artery pressure of 53 mmHg assuming a right atrial pressure
of 3 mmHg.
No prior study available for comparison.
Physical Exam
Vital Signs/Labs
Vital Signs
Temp Pulse Resp BP Pulse Ox
98.6 F 75 16 134/82 93
08/07/24 07:48 08/07/24 07:00 08/07/24 07:48 08/07/24 06:04 08/07/24 07:48
08/06/24 08/07/24 08/08/24
06:59 06:59 06:59
Actual Weight 185 lb 6.54 oz 185 lb 3.013 oz
08/07/24 06:12
08/07/24 06:12
PT 13.4 Sec (11.4-14.6) 08/04/24 22:09
INR 0.97 08/04/24 22:09
APTT 25.9 Sec (23.4-35.0) 08/04/24 22:09
Triglycerides 122 mg/dl (10-149) 08/05/24 04:33
LDL Cholesterol, Calc 76 mg/dl 08/05/24 04:33
VLDL Cholesterol, Calc 24 mg/dl (0-30) 08/05/24 04:33
HDL Cholesterol 44 mg/dl 08/05/24 04:33
LAB Results
08/04/24 08/05/24 08/05/24
22:09 04:33 10:47
Troponin I 0.033 74.600 H* D 76.400 H*
08/05/24 08/05/24 08/06/24
16:04 22:09 03:19
Troponin I 58.600 H* 47.000 H* 37.700 H*
Physical Exam
Constitutional: No acute distress and Comfortable
EENT: Anicteric
Cardiovascular: Pedal edema is absent and Rhythm/rate is irregular
Respiratory: Respiratory effort normal and Lungs clear to auscul.
GI: Soft
Neuro/Psych: AO x 3
Other: Cath Site (c/d/i mild ecchymosis soft )
Data Reviewed
-
Date of Service: August 07, 2024
EKG: Tracing Personally Visualized and interpreted (af)
Echo: Tracing Personally Visualized and interpreted and Report Reviewed by me
Labs: Labs Reviewed by me
--- NOTE | 2024-08-07 11:45 | W.DS.TRANS ---
DC Summary - Sheriff Officer
-
Discharge Instructions:
Discharge Diagnosis/Procedures STEMI, Thrombectomy, atherectomy and PCI left
circumflex artery (08/05/24), Angioplasty with
stent to LAD (08/06/24)
Diet Low Cholesterol
Driving Restrictions No driving for 24 hours
Other Services Cardiac Rehab
Instructions:
Stand-Alone Forms: DC Instructions- Cath/EP Lab
Changes to Home Medications: Yes
Discharge Medications:
DC Medications w/original date entered in [facility]
metformin 500 mg tablet 500 mg PO BID Diabetes 06/21/20
apixaban 5 mg tablet (Eliquis) 5 mg PO BID #60 tabs 08/06/24
atorvastatin 40 mg tablet 40 mg PO QPM #90 tabs 08/06/24
clopidogrel 75 mg tablet 75 mg PO DAILY #90 tabs 08/06/24
lisinopril 2.5 mg tablet 2.5 mg PO DAILY #90 tabs 08/06/24
metoprolol succinate 25 mg tablet,extended release 24 hr 25 mg PO BID #60 tabs 08/06/24
nitroglycerin 0.4 mg sublingual tablet 0.4 mg sublingual [id number] PRN chest pain #25 tabs 08/06/24
Home Medication Changes
Hold Metformin post procedure, resume on Friday08/08/24 evening
Stop lisinopril-HCTZ
Note increased dose of atorvastatin
Start atorvastatin 40 mg tablet 40 mg PO QPM #90 tabs 08/06/24
Start lisinopril 2.5 mg tablet 2.5 mg PO DAILY #90 tabs 08/06/24
Pending Results: No
[2024-08-09 08:49] LABS: ACT-LR - POC 137 Seconds (116-155)
[2024-08-09 08:49] LABS: ACT-LR - POC 369 Seconds (116-155)
[2024-08-09 08:49] LABS: ACT-LR - POC 229 Seconds (116-155)
[2024-08-09 08:49] LABS: ACT-LR - POC 253 Seconds (116-155)
[2024-08-09 08:49] LABS: ACT-LR - POC 316 Seconds (116-155)
== END 2024-08-07 16:03 | disposition home or self-care (01) | DRG 321 ==
LOC: IVU 01:15
PROVIDERS: Internal Medicine Cardiovascular Disease; Nurse Practitioner Adult Health; Student in an Organized Health Care Education/Training Program; ADMITTING PHYSICIAN Internal Medicine Cardiovascular Disease; EMERGENCY PHYSICIAN Emergency Medicine; FAMILY PHYSICIAN Family Medicine
PROC: B2111ZZ Fluoroscopy of Multiple Coronary Arteries using Low Osmolar Contrast (ICD-10-PCS; 2024-08-05)
PROC: B240ZZ3 Ultrasonography of Single Coronary Artery, Intravascular (ICD-10-PCS; 2024-08-05)
PROC: 4A023N7 Measurement of Cardiac Sampling and Pressure, Left Heart, Percutaneous Approach (ICD-10-PCS; 2024-08-05)
PROC: 5A2204Z Restoration of Cardiac Rhythm, Single (ICD-10-PCS; 2024-08-05)
PROC: 027034Z Dilation of Coronary Artery, One Artery with Drug-eluting Intraluminal Device, Percutaneous Approach (ICD-10-PCS; 2024-08-05)
PROC: 02C03Z7 Extirpation of Matter from Coronary Artery, One Artery, Orbital Atherectomy Technique, Percutaneous Approach (ICD-10-PCS; 2024-08-05)
PROC: B241ZZ3 Ultrasonography of Multiple Coronary Arteries, Intravascular (ICD-10-PCS; 2024-08-06)
PROC: 02703ZZ Dilation of Coronary Artery, One Artery, Percutaneous Approach (ICD-10-PCS; 2024-08-06)
DX: I21.29 ST elevation (STEMI) myocardial infarction involving other sites (principal); I25.10 Atherosclerotic heart disease of native coronary artery without angina pectoris; E78.00 Pure hypercholesterolemia, unspecified; I12.9 Hypertensive chronic kidney disease with stage 1 through stage 4 chronic kidney disease, or unspecified chronic kidney disease; I48.0 Paroxysmal atrial fibrillation; N18.2 Chronic kidney disease, stage 2 (mild); I25.5 Ischemic cardiomyopathy; N40.0 Benign prostatic hyperplasia without lower urinary tract symptoms; E11.22 Type 2 diabetes mellitus with diabetic chronic kidney disease; I49.3 Ventricular premature depolarization; Z11.52 Encounter for screening for COVID-19; Z79.84 Long term (current) use of oral hypoglycemic drugs; Z79.899 Other long term (current) drug therapy; Z90.79 Acquired absence of other genital organ(s)
CPT/HCPCS: 70450; 71045; 80048; 80053; 80061; 82962; 83036; 84484; 85025; 85027; 85347; 85610; 85730; 86803; 87502; 87811; 92920; 92978; 92979; 93005; 93306; 93458; 96374; 99152; 99153; 99291; C1724; C1725; C1753; C1760; C1769; C1874; C1887; C1894; C9600; C9606; J1327; Q9967

== ENCOUNTER 2024-08-25 07:03 | Day surgery (SDC) | payer OTHER, SELFPAY ==
[2024-08-25] VITALS (14 sets, daily range): BP systolic 110–148; BP diastolic 76–106; BMI 29.7
[2024-08-25 07:56] LABS: Glucose - Point of Care 147 mg/dl (70-99)
--- NOTE | 2024-08-25 10:03 | ITS.CL.CATH ---
Sole Conforming Machine Operator - Catheterization
Cardiac Catheterization
Procedure Report:
CARDIAC CATHETERIZATION REPORT
Date of Procedure: 08/25/2024
Referring: Robert Pack D.O.
INDICATION: Staged PCI of right coronary artery after prior STEMI.
PROCEDURE:
1. Left heart catheterization
2. Coronary angiography
3. Successful IFR of the proximal and mid RCA.
A total of 27 minutes of procedural/moderate sedation was utilized. An independent medical services manager was present to assist with and help manage the patient's level of consciousness and physiologic status.
ACCESS:
1. Sick [place] right common femoral artery using a modified Seldinger technique with a micropuncture kit under ultrasound guidance.
CATHETERS:
1. 5 [place] JL 4.
2. 5 [place] JR4 guiding catheter.
HEMODYNAMIC DATA
Weight (kg): 81.0
AO (s/d/x, mmHg): 129/88/105
LV (s/x mmHg): 131/18
LEFT VENTRICULOGRAPHY: Not performed.
CORONARY ANGIOGRAPHY
Dominance: Right.
Left Main: Normal size, bifurcating vessel. There is no coronary artery disease.
LAD: Normal size vessel giving rise to 1 large diagonal. A patent stent is observed in the ostial/proximal LAD. There is a 50-60% lesion in the mid LAD immediately after the origin of the diagonal. The distal LAD is diffusely diseased. There
is a 60% lesion in the proximal margin of the diagonal.
Ramus: Congenitally absent.
Circumflex: Large size, nondominant vessel giving rise to 2 obtuse marginals before terminating as a large left posterolateral branch. A patent stent is visible in the ostial/proximal margin of the artery.
RCA: Normal size, dominant vessel. There is a 50% lesion in the proximal RCA. There is a second 50% lesion in the mid/distal RCA as it crosses the crux. There is a 50% lesion in the distal RCA as it spans the RPDA. The vessel is a 1.5 mm
vessel.
INTERVENTION(S)
1. Successful IFR of the distal RCA beyond the crux but proximal to the RPDA, demonstrating nonocclusive disease (IFR = 0.93).
Narrative:
The decision was made to perform physiologic testing. The diagnostic catheter was removed over a wire and exchanged for a(n) 6 [place] JR4 guiding catheter. The guiding catheter was advanced into the ascending aorta and seated in the right coronary
artery. Additional heparin was given to obtain an ACT greater than 250 seconds. An iFR wire was zeroed outside of the body, then inserted into the guiding sheath. The wire was advanced and the transducer was normalized just outside of the guiding
catheter tip. The wire was advanced into the distal RCA, and between the crux and the RPDA. Three iFR measurements were taken. The tandem 50% proximal and mid RCA lesions were determined to be nonocclusive (IFR = 0.93).
Closure Device: 6 [place] Angio-Seal.
Radiation (mGy): 386.72
DAP (cm2.Gy): 36.9650
Fluoroscopy time (minutes): 4.7
CONCLUSIONS
1. Right dominant circulation with patent stents in the ostia of the LAD and circumflex, a 50-60% lesion in the mid LAD immediately after the origin of the sole diagonal, a 60% lesion in the proximal margin of the diagonal and nonocclusive tandem
50% lesions in the proximal and mid/distal RCA (IFR = 0.93).
2. Mildly elevated filling pressures (LVEDP = 18 mmHg at 81.0 kg).
3. Known persistent atrial fibrillation.
RECOMMENDATIONS:
1. Expectant management after cardiac catheterization via right common femoral approach.
2. Limited weight bearing for one week.
3. Continue antithrombotic therapy with clopidogrel and apixaban for at least 1 year, after which time clopidogrel can be discontinued.
4. Continue OMT/GDMT as hemodynamics will permit.
5. Aggressive secondary prevention with atorvastatin. Goal LDL <55.
6. Referral to cardiac rehab.
Copy to: Robert Pack D.O., Nora Gonzalez M.D.
Robert Pack DO, FACC, FACP
== END 2024-08-25 13:46 | disposition home or self-care (01) ==
LOC: CATH 07:03
PROVIDERS: ATTENDING PHYSICIAN Internal Medicine Cardiovascular Disease; FAMILY PHYSICIAN Family Medicine
DX: I25.10 Atherosclerotic heart disease of native coronary artery without angina pectoris (principal); I48.19 Other persistent atrial fibrillation; I13.10 Hypertensive heart and chronic kidney disease without heart failure, with stage 1 through stage 4 chronic kidney disease, or unspecified chronic kidney disease; E11.22 Type 2 diabetes mellitus with diabetic chronic kidney disease; N18.2 Chronic kidney disease, stage 2 (mild); Z95.5 Presence of coronary angioplasty implant and graft; I25.2 Old myocardial infarction; N40.0 Benign prostatic hyperplasia without lower urinary tract symptoms; Z79.84 Long term (current) use of oral hypoglycemic drugs; Z79.02 Long term (current) use of antithrombotics/antiplatelets; Z79.01 Long term (current) use of anticoagulants
CPT/HCPCS: 93799; 99152; 99153; C1894; C1769; C1760; 82962; 85347; 93458; Q9967

== ENCOUNTER 2024-09-10 11:53 | Outpatient (RCR) | payer OTHER, SELFPAY ==
[2024-09-01 10:01] LABS: Glucose - Point of Care 214 mg/dl (70-99)
[2024-09-01 10:38] LABS: Glucose - Point of Care 152 mg/dl (70-99)
[2024-09-03 10:56] LABS: Glucose - Point of Care 130 mg/dl (70-99)
[2024-09-03 11:47] LABS: Glucose - Point of Care 96 mg/dl (70-99)
[2024-09-08 10:51] LABS: Glucose - Point of Care 134 mg/dl (70-99)
[2024-09-08 11:51] LABS: Glucose - Point of Care 101 mg/dl (70-99)
[2024-09-10 10:53] LABS: Glucose - Point of Care 120 mg/dl (70-99)
[2024-09-10 12:02] LABS: Glucose - Point of Care 98 mg/dl (70-99)
== END 2024-09-10 23:59 | disposition home or self-care (01) ==
LOC: CRHB 11:53
PROVIDERS: ATTENDING PHYSICIAN Internal Medicine Cardiovascular Disease
DX: I25.10 Atherosclerotic heart disease of native coronary artery without angina pectoris (principal); I25.2 Old myocardial infarction; Z95.5 Presence of coronary angioplasty implant and graft
CPT/HCPCS: 82962; G0422; G0423

== ENCOUNTER 2024-10-11 11:56 | Outpatient (RCR) | payer OTHER, SELFPAY ==
[2024-09-13 11:12] LABS: Glucose - Point of Care 146 mg/dl (70-99)
[2024-09-13 12:16] LABS: Glucose - Point of Care 113 mg/dl (70-99)
[2024-09-15 11:16] LABS: Glucose - Point of Care 162 mg/dl (70-99)
[2024-09-15 12:08] LABS: Glucose - Point of Care 114 mg/dl (70-99)
== END 2024-10-11 23:59 | disposition home or self-care (01) ==
LOC: CRHB 11:56
PROVIDERS: ATTENDING PHYSICIAN Internal Medicine Cardiovascular Disease
DX: I25.10 Atherosclerotic heart disease of native coronary artery without angina pectoris (principal); I25.2 Old myocardial infarction; Z95.5 Presence of coronary angioplasty implant and graft
CPT/HCPCS: 82962; G0422; G0423

== ENCOUNTER 2024-11-10 11:06 | Outpatient (RCR) | payer OTHER, SELFPAY | END 2024-11-10 23:59 | disposition home or self-care (01) | LOC: CRHB 11:06 | PROVIDERS: ATTENDING PHYSICIAN Internal Medicine Cardiovascular Disease | DX: I25.10 Atherosclerotic heart disease of native coronary artery without angina pectoris (principal); I25.2 Old myocardial infarction (principal); Z95.5 Presence of coronary angioplasty implant and graft | CPT/HCPCS: G0422; G0423 ==

== ENCOUNTER 2024-12-01 11:22 | Outpatient (RCR) | payer OTHER, SELFPAY | END 2024-12-01 14:50 | disposition home or self-care (01) | LOC: CRHB 11:22 | PROVIDERS: ATTENDING PHYSICIAN Internal Medicine Cardiovascular Disease | DX: I25.10 Atherosclerotic heart disease of native coronary artery without angina pectoris (principal); I25.2 Old myocardial infarction; Z95.5 Presence of coronary angioplasty implant and graft | CPT/HCPCS: G0422; G0423 ==

== ENCOUNTER → 2024-12-28 09:07 | Outpatient (REF) | payer OTHER, SELFPAY | LOC: RCS 09:07 | PROVIDERS: ATTENDING PHYSICIAN Internal Medicine Cardiovascular Disease; FAMILY PHYSICIAN Family Medicine | DX: I25.5 Ischemic cardiomyopathy (principal) | CPT/HCPCS: 93306 ==

== ENCOUNTER 2025-02-13 13:00 | Inpatient (IN) | payer OTHER, SELFPAY ==
[2025-02-13] VITALS (44 sets, daily range): BP systolic 88–180; BP diastolic 60–134; BMI 30.1
[2025-02-13 09:33] LABS: COVID-19 Antigen Negative (Negative)
--- NOTE | 2025-02-13 09:47 | ED.GENMED ---
History of Present Illness
General
Chief Complaint: Cold/Flu/URI Symptoms
Time Seen by Provider: 02/13/25 09:20
History of Present Illness
History of Present Illness:
79-year-old male with history of atrial fibrillation on Eliquis and metoprolol, CAD status post stenting, diabetes, hyperlipidemia presenting to the emergency department for cough and difficulty breathing. Patient reports that he has been feeling
short of breath for the past month, however has worsened in the past week. Recently returned home from a flight from [place] on , 3 days ago. Notes increased dyspnea with exertion. Also notes lower extremity swelling, however feels like
that is from the flight. He stopped taking his Eliquis yesterday because he supposed to have a hydrocele drained by urology on Friday. Reports that the cough has been slightly productive. Denies fever. Patient arrives in atrial fibrillation,
notes that he does not realize when he is in or out of A-fib. Denies additional acute medical complaints
Past History
Past History
ED Past Medical History: HTN, Hypercholesterolemia, NIDDM and Other (BPH, kidney stones)
ED Past Surgical History: Urological (TURP) and Other (Hernia repair)
Social History
Tobacco: Non-smoker
Alcohol: Occasional
Drug: None
Personal:
Living: with family
Family History
Family History: Other (Noncontributory)
Phy Exam
Physical Exam
Physical Exam:
General: Well-appearing, no clinical signs of dehydration, nontoxic and in no acute distress
HEENT: protecting airway
Neck: appears supple
CV: Tachycardic, irregular irregular rhythm
Resp: Mild tachypnea at rest. Lungs otherwise clear to auscultation.
Abd: Soft and non-distended, no tenderness to palpation, normal bowel sounds
Extremities: No deformities, mild pitting edema bilaterally
Neuro: alert, no focal neurologic deficit
: deferred
Rectal: deferred
Psych: Normal affect
Skin: Intact
Scores
Heart Failure Risk
Heart Failure Risk Score: Yes
History of Stroke or TIA: No
History of intubation for respiratory distress: No
Heart rate on ED arrival >/= 110: Yes
SaO2 <90% on arrival on room air: No
HR >/=110 during 3min walk test (or too ill to perform test): Yes
ECG has acute ischemic changes: No
Urea >/=12mmol/L (BUN 33.6mg/dL): No
Serum CO2>/=35mmol/L: No
Troponin I or T elevated to AR Level (0.4mg/dL): No
NT-proBNP >/=5,000ng/L (5,000pg/ml): No
HF Risk Score: 2
Admission Status: MEDIUM RISK 9.2% Consider observation or discharge to home with homecare & f/u visit to PCP/[facility], or SNF for treatment
Course
Orders/Labs/Results
Orders:
Orders
02/13/25 09:00
Electrocardiogram (*1) Urgent
Reason for Study: Shortness of Breath
02/13/25 09:01
EKG- Treatment ONCE
02/13/25 09:07
COVID-19 Antigen Urgent
Source: Nasal Swab
INF RAPID [Influenza A+B Rapid Molecular] Urgent
RIN Source: Nasal Swab
Specimen Description:
02/13/25 09:42
CR Chest - 2 Views Urgent
Comment:
Reason For Exam: sob, cough
02/13/25 09:44
Metoprolol [Lopressor] 5 mg IV NOW STA
02/13/25 09:53
Complete Blood Count/With Diff Urgent
Comprehensive Metabolic Panel Urgent
NT-proBNP Urgent
02/13/25 11:12
Metoprolol [Lopressor] 5 mg IV NOW STA
02/13/25 11:43
Diltiazem HCl [Cardizem] 15 mg IV NOW STA
02/13/25 11:45
Diltiazem 125 mg/125 ml Nss [Cardizem] 125 mg in 125 ml IV PER PROTOCOL
Currently infusing. Continue current dose and titrate:: Yes
Titrate to keep:: Heart rate 80-100 bpm
Titrate by mg/hr:: 5 mg/hr
Frequency of titrations (minutes):: 15
Maximum dose in mg/hr:: 15
02/13/25 11:52
Furosemide [Lasix] 40 mg IV NOW STA
Abnormal Lab Results
02/13/25
09:53
RDW 16.1 H %
(11.5-14.5)
MPV 10.6 H fL
(7.4-10.4)
Absolute Neuts (auto) 7.4 H 10^3/uL
(1.4-6.5)
Absolute Monos (auto) 0.8 H 10^3/uL
(0.1-0.6)
Lymphocytes % 17.9 L %
(20.5-51.1)
Chloride 108 H mmol/L
(98-107)
Glucose 155 H mg/dl
(70-99)
Total Bilirubin 1.5 H mg/dl
(0.2-1.3)
ALT 66 H U/L
(0-50)
Total Protein 6.2 L g/dl
(6.3-8.2)
02/13/25 09:53
02/13/25 09:53
Vital Signs
Initial and Last Documented VS:
Initial Vital Signs
Temp Pulse Resp BP Pulse Ox
98.7 F 138 18 88/60 95
02/13/25 08:55 02/13/25 08:55 02/13/25 08:55 02/13/25 08:55 02/13/25 08:55
Last Documented Vital Signs
Temp Pulse Resp BP Pulse Ox
98.7 F 125 27 160/115 91
02/13/25 08:55 02/13/25 11:30 02/13/25 11:30 02/13/25 11:30 02/13/25 11:30
MDM/Problems Addressed
MDM/Problems Addressed:
79-year-old male with history of A-fib on Eliquis and metoprolol, diabetes, hypertension, CAD status post stenting presenting to the emergency department for cough and shortness of breath. Vitals on arrival significant for low blood pressure,
however on recheck patient is hypertensive. Also noted to have tachycardia with EKG consistent with A-fib with RVR.
On exam patient in no acute respiratory distress, however slight increased work of breathing. Differential considerations include bronchitis versus pneumonia versus congestive heart failure. Patient also in A-fib with RVR, which could be
contributing to patient's symptoms. Patient has not had his Eliquis for 2 days, so at this time not a candidate for cardioversion. Patient is on metoprolol at baseline. Will administer a dose of IV metoprolol for rate control. Regarding his
breathing concerns, will obtain chest x-ray imaging, viral swabs, laboratory analysis and continue to closely monitor.
11:50 -chest x-ray shows pleural effusions and pulmonary vascular congestion. BNP is elevated. This all seems consistent with new onset heart failure. Did December without significant abnormality. IV metoprolol without significant improvement
of patient's blood pressure or heart rate. In discussion with cardiology, note that it is reasonable to try IV Cardizem for rate control. Will administer bolus and follow-up with drip. Will also computer salesperson retail IV Lasix with plan for admission for A-fib
with RVR and acute congestive heart failure
*Pulse Oximetry
SaO2: 92
Oxygen Mode of Delivery: Room air
Patient hypoxic: no
*EKG
Interpreted by ED Provider?: Yes
EKG Intrepretation Date: 02/13/25
EKG Intrepretation Time: 09:55
Interpretation: abnormal
Comparison EKG: changes noted (08/07/24)
Heart Rate: 135
Rate: tachycardiac
Rhythm: a-fib
QRS Pattern: normal QRS
Ischemia: non-specific ST changes
*Critical Care Note
Total Time (30-74mins, 75-104mins- exclusive of procedures): Not Applicable
ED Attending Note
-
Portions of this chart may have been created with voice recognition software.� Occasional wrong word or��sound alike� substitutions may have occurred due to the inherent limitations of voice recognition software.
Discharge Plan
Departure
Prescriptions:
No Action
metformin 500 MG tablet
500 mg PO BID
atorvastatin 40 mg Tablet
40 mg PO QPM Qty: 90 5RF
clopidogrel 75 mg Tablet
75 mg PO DAILY Qty: 90 5RF
lisinopril 2.5 mg Tablet
2.5 mg PO DAILY Qty: 90 5RF
nitroglycerin 0.4 mg tablet, sublingual
0.4 mg sublingual [id number] PRN (Reason: chest pain) Qty: 25 5RF
Eliquis 5 mg tablet
5 mg PO BID Qty: 60 5RF
metoprolol succinate 25 mg Tablet Extended Release 24 Hr
25 mg PO DAILY
Referrals:
Nora Gonzalez MD [Family Provider, Family Practice]
Interventions
Interventions:
*Risk Screen - Suicide Last Done: 02/13/25 08:55
*General Assessment Last Done: 02/13/25 09:42
*Neglect/Abuse Screening Last Done: 02/13/25 08:55
*ED- Fall Risk Assessment Last Done: 02/13/25 09:42
*ED COVID-19 Vaccine History Last Done: 02/13/25 09:44
*ED Influenza Vaccine History Last Done: 02/13/25 09:44
ED- Pulmonary Assessment Last Done: 02/13/25 09:39
Discharge Date and Time
Print Language: CUBAN
[2025-02-13 10:09] LABS: Hematocrit 45.7 % (39.0-52.0); Hemoglobin 15.4 g/dL (13.0-18.0); Mean Corp Hgb Conc. 33.7 g/dL (33.0-37.0); Mean Corpuscular Volume 82.9 fL (80.0-94.0); Nucleated Red Blood Cells % 0 % (-); Platelet Count 207 10^3/uL (130-400); Red Cell Dist. Width 16.1 % (11.5-14.5)
[2025-02-13 10:18] LABS: ALT (SGPT) 66 U/L (0-50); AST (SGOT) 39 U/L (17-59); Albumin 4.1 g/dl (3.5-5.0); Alkaline Phosphatase 84 U/L (38-126); Blood Urea Nitrogen 17 mg/dl (9-20); Calcium 9.1 mg/dl (8.4-10.2); Carbon Dioxide 24 mmol/L (22-30); Chloride 108 mmol/L (98-107); Estimated Creatinine Clearance 87 ml/min; Glucose 155 mg/dl (70-99); Potassium 3.8 mmol/L (3.5-5.1); Sodium 142 mmol/L (135-145); Total Protein 6.2 g/dl (6.3-8.2); eGFR > 60.00
[2025-02-13] MEDS: LOPRESSOR 5 MG IV (10:20)
--- NOTE | 2025-02-13 12:05 | HPS.HSE ---
Addendum entered and electronically signed by Joy Newell PA-C 02/13/25 13:32:
Reviewed with Cardiology
Plan had been to hold Eliquis for 3 days prior to upcoming urologic procedure scheduled for February 16. Unclear if patient took Eliquis this morning.
Start Heparin Drip this evening.
Addendum entered and electronically signed by Yessica Velazquez MD 02/13/25 13:10:
This is an addendum to H&P written by Joy Tarango on 02/13/2025. �Patient seen and examined independently with PA.
79-year-old male past medical history of CAD status post stents, STEMI in July status post LAD stent, ischemic cardiomyopathy, HFrEF with recovered EF, paroxysmal atrial fibrillation on Eliquis, hypertension, hyperlipidemia, type 2 diabetes, CKD 3,
BPH status post TURP presenting with productive cough and difficulty breathing. �He has been having shortness of breath for the past month which is not worse over the past week. �He recently returned from a flight from [place] [employer] [employer] 3 days ago. �He has
shortness of breath with exertion. �Also lower extremity swelling. �He stopped taking Eliquis and Plavix yesterday because he supposed to have hydrocele drained by urology this upcoming Friday. �Denies fever. �Denies any palpitations or chest
pain.
Vital signs show heart rate up to 140s. �O2 sats to 89% on room air.
Labs show cardiac BNP 3400. �Chest x-ray shows pulmonary edema, report pending.
Patient with acute CHF exacerbation likely tachycardia induced from atrial fibrillation with RVR. �Patient given Lopressor without improvement. �Cardizem drip to be started. �40 IV Lasix given. �Cardiology consulted.
Original Note:
Family Physician
-
Family Physician: Nora Gonzalez
Chief Complaint
-
Cough and Shortness of Breath
History of Present Illness
Patient is a 79 y/o male past medical history of coronary artery disease, persistent atrial fibrillation, hypertension, hyperlipidemia, and diabetes mellitus who presents with cough and shortness of breath. Additional history is provided by patient
at the bedside. has noted some increased dyspnea on exertion for the past month or so as patient was having to stop and rest more frequently during their walks. Patient was in [place] for the past two weeks, returning two days ago. He
notes during his travel his was having increased shortness of breath with activity, as well as worsening cough. Upon returning home he noted that his legs started getting more swollen. Today his breathing was continuing to worsen with increasing
cough prompting him to come to the emergency department for evaluation. He denies chest pain, palpitations, fevers, sweats or chills.
Medical History
Past Medical History
Past Medical History: Reports Other
Additional Past Medical History:
Persistent Atrial Fibrillation
Coronary Artery Disease s/p Stent in July 2024
Essential Hypertension
Hyperlipidemia
Diabetes Mellitus, Type II
BPH
Past Surgical History: Reports Other
Additional Past Surgical History:
TURP
Hydrocele
Social History
Tobacco: Non-smoker
Alcohol: Occasional
Drug: None
Personal:
Living: With Family
Employment: Retired
Family History
Family History: Not pertinent
Allergies / Home Medications
Allergies reflects when Allergies were last updated in [facility].
Home Medications with original date entered in [facility]
Allergy/Medication List:
Allergies
Allergy/AdvReac Type Severity Reaction Status Date / Time
No Known Allergies Allergy Verified 02/13/25 09:42
Home Medications
metformin 500 mg tablet 500 mg PO BID Diabetes 06/21/20
apixaban 5 mg tablet (Eliquis) 5 mg PO BID #60 tabs 08/06/24
atorvastatin 40 mg tablet 40 mg PO QPM #90 tabs 08/06/24
clopidogrel 75 mg tablet 75 mg PO DAILY #90 tabs 08/06/24
lisinopril 2.5 mg tablet 2.5 mg PO DAILY #90 tabs 08/06/24
nitroglycerin 0.4 mg sublingual tablet 0.4 mg sublingual [id number] PRN chest pain #25 tabs 08/06/24
metoprolol succinate 25 mg tablet,extended release 24 hr 25 mg PO DAILY 02/13/25
Review of Systems
-
A 12 point ROS was completed and negative except as noted: Yes
Constitutional: Denies Fever or Chills
Respiratory: Reports See HPI
Cardiac: Reports See HPI
Physical Exam
Vital Signs
Vital Signs
Temp Pulse Resp BP Pulse Ox
98.7 F 125 27 160/115 91
02/13/25 08:55 02/13/25 11:30 02/13/25 11:30 02/13/25 11:30 02/13/25 11:30
Physical Exam
General: Comfortable and Conversant
HEENT: Anicteric, Moist mucous membranes and Oxygen (Nasal Cannula)
Respiratory: Wheezes (Faint expiratory), Rales (Bilateral bases) and Other (Conversational Dyspnea)
Cardiac: S1/S2, Irregular Rhythm and Tachycardia
GI: Soft and Non Tender
Rectal: Deferred by Provider
Genito-urinary: Clear Urine
Musculoskeletal: No Clubbing, No Cyanosis and Other (+1 pitting edema bilateral lower extremities)
Skin: Warm and Dry
Neuro: Awake, Alert, Oriented and Nonfocal/grossly intact
Psych: Calm
Laboratory Results
-
02/13/25 09:53
02/13/25 09:53
Laboratory Results
Total Bilirubin 1.5 mg/dl (0.2-1.3) H 02/13/25 09:53
AST 39 U/L (17-59) 02/13/25 09:53
ALT 66 U/L (0-50) H 02/13/25 09:53
Alkaline Phosphatase 84 U/L (38-126) 02/13/25 09:53
Echo Dec 2024: Low normal LV systolic function with LVEF 50-55%. Grade 2 diastolic dysfunction.
Data Reviewed
-
Lab Data: Labs Reviewed by me
Old Records: Reviewed
Impression/Plan
-
Acute Hypoxic Respiratory Insufficiency secondary to Acute Heart Failure
-Continue supplemental oxygen
-Plan to wean prior to discharge
Acute HFpEF
-Consult Cardiology
-Echo Dec 2024: Low normal LV systolic function with LVEF 50-55%. Grade 2 diastolic dysfunction.
-Continue Lasix 40mg IV Daily
-Monitor Is&Os and Daily Weights
Atrial Fibrillation with Rapid Ventricular Response
-Admit to IVU for titratable Cardizem drip - Monitor heart rate closely
-Continue metoprolol as prior to admission
-Patient is currently off Eliquis for urologic procedure scheduled for February 16
Coronary Artery Disease s/p Stent in July 2024
-Plavix currently on hold for urologic procedure schedule fro February 16 - Continue 81mg aspirin
Essential Hypertension
-Continue metoprolol and lisinopril
-Monitor blood pressure closely while on Cardizem drip
Hyperlipidemia
-Continue atorvastatin
Diabetes Mellitus, Type II
-Hold metformin
-Montior sugars and continue coverage insulin
BPH
-Monitor bladder scans
DVT proph: Lovenox as patient is currently off Eliquis
Code Status: Full Code
[2025-02-13] MEDS: LASIX 40 MG IV (12:07)
[2025-02-13] MEDS: CARDIZEM 15 MG IV (12:08)
[2025-02-13] MEDS: CARDIZEM 125 IV ×2 (13:00→21:01)
--- NOTE | 2025-02-13 13:32 | EDCM ---
CM reviewed chart and met with pt and his bedside in ED. Lives with his in 3 story town home, no JAKOB. First floor half bath, full flight to second floor bedroom and full bath. Pt normally sleeps on the couch in the basement.
Independent in ADLs, personal care and ambulation at baseline. No assistive device, no equipment in home.
Currently on 2L NC in ED.
Confirms prescription coverage.
No hx VN or SNF.
PCP: Nora Gonzalez
Pharmacy: [facility] [address]
Anticipate discharge home, CM will continue to follow for any discharge planning needs.
--- NOTE | 2025-02-13 13:49 | CON.CAR ---
Addendum entered and electronically signed by Juan Sorto MD 02/13/25 14:18:
. Monitor response to diuretics. Patient was given Lasix 40 mg IV in the emergency department. Can prescribe Lasix 40 mg IV twice daily and monitor response.
Patient had PCI of ostial/proximal left circumflex 07/2024 patient must remain on antiplatelet therapy in addition for A-fib. Can continue aspirin.
Original Note:
Consultation
Consultation Request
Date/Time Consultation Requested: 02/13/2025 at 1230
Date/Time Consultation Performed: 02/14/2020 5-12 o'clock
Requesting Provider: Joy Tarango,
Performing Provider: Dr. Sorto
Reason for Consultation: A-fib with RVR and shortness of breath
Medical History
-
History of Present Illness:
Primary student support advisor Dr. Pack
.
79-year-old male with a history of paroxysmal atrial fibrillation, chronic anticoagulation with Eliquis, coronary artery disease, and orbital atherectomy and PCI of the ostial and proximal circumflex 08/04/2024, hypercholesterolemia, diabetes who
presents with shortness of breath. Patient's had shortness of breath that is been worsening over the last 2 weeks last night was even worse and he was short of breath in bed and due to worsening shortness of breath came to the ER. While in the ER
he was noted to be in A-fib with RVR. Patient has had no palpitations or heart racing and was not aware that he was in A-fib. No complaints of chest pains no lightheadedness syncope or near syncope. He is normally maintained on Eliquis but was
supposed to stop it 3 days prior to a scheduled procedure for cystocele 02/16/2025 and discussion with him it appears his last dose may have been 02/12/2025. In addition he transitioned his Plavix to aspirin on Friday in preparation for this
procedure. Patient states he is scheduled have a procedure by Dr. Cooper initially just to put a needle and drain the fluid and then later down the line he is going to have a more definitive procedure to fix the problem.
.
Of note patient has recently traveled to [facility] and returned on
Past medical history
PAF
Coronary artery disease
myocardial infarction presented with STEMI and A-fib 07/2024
Catheterization 08/04/2024 orbital atherectomy and successful PCI of the ostial and proximal circumflex
Diabetes
Hypertension
.
Chest x-ray with interstitial edema and small bilateral pleural effusions 02/13/2025
ECG 02/13/2025 A-fib nonspecific ST abnormality
Catheterization 08/04/2024 orbital atherectomy and successful PCI of the ostial and proximal circumflex
Cardiac catheterization 08/25/2024 LAD 50 to 60%, diagonal 60% left circumflex patent stent RCA 50% proximal 50% mid to distal and 50% distal
.
Past Medical History
Past Medical History: Other ( As noted above)
Social History
Tobacco: Non-Smoker
Personal:
Living: With Family
Family History
Family History: Reviewed & Not Pertinent
Allergies / Home Medications
Allergy/AdvReac Type Severity Reaction Status Date / Time
No Known Allergies Allergy Verified 02/13/25 09:42
�Medication �Instructions �Recorded �Confirmed �Type
metformin 500 mg tablet 500 mg PO BID Diabetes 06/21/20 02/13/25 History
apixaban 5 mg tablet (Eliquis) 5 mg PO BID #60 tabs 08/06/24 02/13/25 Rx
atorvastatin 40 mg tablet 40 mg PO QPM #90 tabs 08/06/24 02/13/25 Rx
clopidogrel 75 mg tablet 75 mg PO DAILY #90 tabs 08/06/24 02/13/25 Rx
lisinopril 2.5 mg tablet 2.5 mg PO DAILY #90 tabs 08/06/24 02/13/25 Rx
nitroglycerin 0.4 mg sublingual 0.4 mg sublingual [id number] PRN 08/06/24 02/13/25 Rx
tablet chest pain #25 tabs
metoprolol succinate 25 mg 25 mg PO DAILY 02/13/25 02/13/25 History
tablet,extended release 24 hr
Review of Systems
-
All other systems: Negative unless noted
Physical Exam
Vital Signs
Temp Pulse Resp BP Pulse Ox
98.7 F 132 26 159/134 93
02/13/25 08:55 02/13/25 13:07 02/13/25 13:07 02/13/25 13:07 02/13/25 13:07
Lab Results
02/13/25 09:53
02/13/25 09:53
[id number] Pept 3400 pg/ml 02/13/25 09:53
Physical Exam
General: Other (Awake alert short of breath at the end of a sentence.)
HEENT: Normocephalic, Anicteric and Other (External ear and oral exam unremarkable neck without clearly detectable JVD no carotid bruit)
Respiratory: Wheezes (Bilateral wheezes. No rhonchi. Decreased breath sounds at bases)
Cardiac: Irregular Rhythm (Tachycardic)
GI: Soft, Non Tender, Non Distended and Other (No mass detected)
Genito-urinary: Other (Cystocele)
Musculoskeletal: No Clubbing, No Cyanosis and No Edema (Trace edema)
Skin: Other (Mild rash on medial aspect of lower legs which patient states is a rash related to socks that he recently stopped using)
Neuro: Awake, Alert and Oriented
Hematologic/Lymphatic: No Lymphadenopathy
Psych: Calm
Impression / Plan
-
.
Shortness of breath. Appears to be a combination of CHF and A-fib with RVR.
- Diuresis with IV Lasix
- Additional rate control of A-fib
- Echocardiogram to reassess left ventricular function
.
Acute left heart failure. This may have been precipitated of by A-fib. Duration of A-fib is currently unknown. Patient's had progressive symptoms of shortness of breath over the last 2 weeks. Unclear if he had A-fib precipitating heart failure
or if he has had heart failure this then precipitated A-fib
- Diuresis with IV Lasix
- Echocardiogram
- Monitor labs, weights and renal function
.
A-fib with RVR
-Rate control with IV Cardizem
- Patient chronically maintained on Eliquis. Exact timing of last dose not clear suspect he took his Eliquis yesterday but did not take Eliquis today. Patient is very focused on trying to have his urologic procedure on Friday. I explained that
the priority is for him to have his respiratory issues and heart rhythm issues more controlled prior to considering this. In order to allow this possibility I would recommend we keep him off Eliquis and then use IV heparin. We can then contact
urology regarding timing of the procedure.
.
Coronary artery disease. History of myocardial infarction and left circumflex stenting. Previously on Plavix and Eliquis. Most recently Plavix changed to aspirin.
-Continue aspirin
-Check serial troponins
.
Cystocele. Additional management as directed by urology. As noted above patient would had anticipated procedure on Friday timing will need to be reassessed.
Data Reviewed
-
EKG: Report Reviewed by me
Radiology: Report Reviewed by me
Medical Tests (Nuc Med, Echo etc): Report Reviewed by me
Labs: Labs Reviewed by me
[2025-02-13 15:29] LABS: Troponin I 0.029 ng/ml
[2025-02-13 18:22] LABS: Glucose - Point of Care 168 mg/dl (70-99)
[2025-02-13] MEDS: LIPITOR 40 MG PO (18:32)
[2025-02-13] MEDS: NOVOLOG FLEXPEN-LOW RESISTANCE 1 UNITS SC (18:32)
--- NOTE | 2025-02-13 19:22 | PTCARENOTE ---
~[id number]: Handoff report received from ER. Patient transported up via stretcher to unit. Pt AOx4, but forgetful at times, Afib 100s-140s on tele, SBP 110s, RA satting 93%, breath sounds shallow but clear with occassional dry cough. Patient denies
pain at this time, +2/1 pulses, +2 pitting edema B/l feet and +1 b/l ankles. Standby assist OOB, urinal at bedside. I/Os charted. Ghislainem gtt @ 15. at bedside. Per , last time he was in the hospital he became disoriented after a procedure
and did not sleep well and got OOB alone. Bed alarm in place for safety and request for something for sleep from hospitalist. Patient oriented to unit and callbell system and educated to utilize call joseph when need to get OOB. All needs met at this
time, call joseph within reach. Handoff report given to nightshift RN.
[2025-02-13 20:26] LABS: APTT 28.3 Sec (23.4-35.0)
[2025-02-13 20:40] LABS: Troponin I 0.032 ng/ml
[2025-02-13] MEDS: HEPARIN 25000 UNITS/250 ML IV (20:52)
[2025-02-13 23:39] LABS: Glucose - Point of Care 127 mg/dl (70-99)
--- NOTE | 2025-02-14 01:28 | PTCARENOTE ---
Pt Afib on monitor, with HR 100-130 BPM, VSS. Cardizem gtt and Heparin gtt per order. Pt denies any discomfort at this time. Safety measures in place, call joseph within reach
[2025-02-14 03:07] VITALS: BP 138/96
[2025-02-14 03:39] VITALS: BMI 30.1
[2025-02-14 03:42] LABS: Hematocrit 42.6 % (39.0-52.0); Hemoglobin 14.1 g/dL (13.0-18.0); Mean Corp Hgb Conc. 33.1 g/dL (33.0-37.0); Mean Corpuscular Volume 85.7 fL (80.0-94.0); Platelet Count 177 10^3/uL (130-400); Red Cell Dist. Width 15.9 % (11.5-14.5)
[2025-02-14 03:52] LABS: APTT 62.6 Sec (23.4-35.0)
[2025-02-14 04:07] LABS: Blood Urea Nitrogen 14 mg/dl (9-20); Calcium 8.8 mg/dl (8.4-10.2); Carbon Dioxide 29 mmol/L (22-30); Chloride 105 mmol/L (98-107); Estimated Creatinine Clearance 84 ml/min; Glucose 118 mg/dl (70-99); HDL Cholesterol 48 mg/dl; LDL Cholesterol, Calculated 42 mg/dl; Magnesium 1.9 mg/dl (1.6-2.3); Potassium 3.2 mmol/L (3.5-5.1); Sodium 139 mmol/L (135-145); Very Low Density Lipoprotein 17 mg/dl (0-30); eGFR > 60.00
[2025-02-14 04:21] LABS: Troponin I 0.037 ng/ml
[2025-02-14] MEDS: KCL 40 MEQ PO (05:25)
[2025-02-14] MEDS: CARDIZEM 125 IV ×2 (06:41→16:16)
[2025-02-14 07:24] LABS: Glucose - Point of Care 134 mg/dl (70-99)
[2025-02-14 07:47] VITALS: BMI 30.1
[2025-02-14] MEDS: NOVOLOG FLEXPEN-LOW RESISTANCE SC ×3 (08:08→18:41)
[2025-02-14] MEDS: ZESTRIL 2.5 MG PO (08:10)
[2025-02-14] MEDS: LASIX 40 MG IV (08:15)
[2025-02-14] MEDS: TOPROL XL 25 MG PO (08:15)
[2025-02-14] MEDS: ASPIR LOW (ENTERIC COATED) 81 MG PO (08:15)
[2025-02-14 08:40] LABS: Glycohemoglobin (HgbA1c) 7.2 % (4.0-5.9)
[2025-02-14 11:10] VITALS: BP 113/80; PULSE 123; O2SAT 99
[2025-02-14 11:21] LABS: APTT 84.7 Sec (23.4-35.0)
--- NOTE | 2025-02-14 11:36 | W.PN.CD ---
Today's Communication / Plan
-
Rate control with digoxin vs. amiodarone if metoprolol + diltiazem are ineffective.
Start dapagliflozin 10 mg daily. Case management consult.
Echocardiogram pending.
Continue diuresis.
Impression / Plan
-
Impression/Plan: 79 y/o male with NIDDM, persistent atrial fibrillation, CAD with STEMI s/p culprit PCI (CSI + Medtronic Rafa 4.0 x 38 LOLA, 08/05/2024) and PCI of residual ostial LAD disease (Medtronic Kelliher [place] 3.5 x 22 LOLA with kissing balloon
inflation to establish a eliana-tyrel), ischemic cardiomyopathy (LVEF 45-50%) admitted with shortness in breath with RVR of his AF.
#Shortness of breath
-Acute.
-Appears to be a combination of CHF and A-fib with RVR.
-Diuresis with IV furosemide.
-Additional rate control of A-fib.
-Echocardiogram to reassess left ventricular function pending.
#Left heart failure
-Acute, threat to life.
-Diuresis with IV furosemide.
-Echocardiogram pending.
-GDMT as hemodynamics will tolerate:
-Diuretics: Furosemide 40 mg IV.
-Beta woo: Metoprolol succinate 25 mg daily.
-ACEI/ARB/ARNi: Lisinopril 2.5 mg daily.
-MRA: None.
-SGLT2i: Start dapagliflozin 10 mg daily. Case management consult.
-ICD: Not currently indicated.
#Atrial fibrillation
-Persistent but acute RVR.
-Rate control with metoprolol succinate and diltiazem gtt.
-Consider digoxin or amiodarone for additional rate/rhythm control if needed.
-CHADS2-Vasc = 6 (CHF, HTN, Age x2, DM, vascular disease).
-Patient chronically treated with apixaban, but previously on hold due to upcoming surgery.
#Coronary artery disease
-Chronic, stable.
-History of myocardial infarction with PCI of culprit LCx and non-culprit LAD.
-Clopidogrel on hold for surgery as previously noted.
-Continue atorvastatin.
#Cystocele
-Chronic, stable.
-Additional management as directed by urology.
-As noted above patient would had anticipated procedure on Friday timing will need to be reassessed.
Subjective/Interval History:
AF remains, HR 100-130.
BP stable on diltiazem gtt.
SaO2 = 90% on RA.
Influenza negative, SARS-CoV-2 negative.
DATA:
Cardiac catheterization/PCI, 08/05/2024:
CONCLUSIONS
1. Right dominant circulation with a 70% lesion in the proximal margin of the RCA, along, 50% lesion in the mid RCA as it approaches the crux, a 50% lesion in the distal RCA spanning the origin of the small RPDA, a densely calcified 70% lesion in
the proximal LAD with densely calcified moderate disease throughout the remainder of the LAD and large diagonal and a large size, nondominant circumflex with a densely calcified initially 100% lesion in the ostium that progresses into a densely
calcified 70% lesion in the ostium of OM 2, status post aspiration thrombectomy (YANIRA catheter), CSI orbital atherectomy (CSI diamondback) and successful IVUS guided PCI (Medtronic Kelliher [place] 4.0 x 38 LOLA, postdilated with a 4.0 NC balloon) with
reduction in the circumflex stenoses to 0%, restoring VIJAYA-3 flow.
2. Moderately elevated filling pressures (LVEDP = 22 mmHg at 84.4 kg).
3. Paroxysmal atrial fibrillation, converted after amiodarone bolus.
Cardiac Catheterization/PCI, 08/06/2024:
CONCLUSION: Successful IVUS-guided PCI with LOLA to LAD ([place] 3.5 x 22 mm drug-eluting stent) with POBA of the ostial LCx stent to achieve kissing balloon inflation at the neocarina (3.5 NC balloons in both the LAD and LCx).
Cardiac Catheterization/iFR, 08/25/2024:
CONCLUSIONS
1. Right dominant circulation with patent stents in the ostia of the LAD and circumflex, a 50-60% lesion in the mid LAD immediately after the origin of the sole diagonal, a 60% lesion in the proximal margin of the diagonal and nonocclusive tandem
50% lesions in the proximal and mid/distal RCA (IFR = 0.93).
2. Mildly elevated filling pressures (LVEDP = 18 mmHg at 81.0 kg).
3. Known persistent atrial fibrillation.
TTE, 12/28/2024:
SUMMARY
1. Low normal LV systolic function. LVEF 50-55%. Mild LVH. Grade 2 diastolic dysfunction.
2. Basal to mid inferolateral wall hypokinesis.
3. Left atrial enlargement.
4. Mild aortic regurgitation.
5. Mild mitral regurgitation.
6. Compared to echocardiogram report 08/01/2024 LVEF has improved from 45-50% to 50-55%. Diastolic function is improved from grade 3 to grade 2. PASP has fallen from 53 mmHg to normal. It is possible PASP is underestimated on today's study.
CXR, 02/13/2025:
IMPRESSION:
As described, radiographic findings most suggestive of interstitial pulmonary edema pattern with small bilateral pleural effusions.
Physical Exam
Vital Signs/Labs
Vital Signs
Temp Pulse Resp BP Pulse Ox
36.8 C 66 17 110/87 90
02/14/25 11:20 02/14/25 11:20 02/14/25 11:20 02/14/25 08:15 02/14/25 11:20
02/12/25 02/13/25 02/14/25
11:59 10:59 11:59
Actual Weight 85 kg 79.6 kg
02/14/25 03:22
02/14/25 03:22
APTT 84.7 Sec (23.4-35.0) H 02/14/25 10:45
Magnesium 1.9 mg/dl (1.6-2.3) 02/14/25 03:22
Triglycerides 88 mg/dl (10-149) 02/14/25 03:22
LDL Cholesterol, Calc 42 mg/dl 02/14/25 03:22
VLDL Cholesterol, Calc 17 mg/dl (0-30) 02/14/25 03:22
HDL Cholesterol 48 mg/dl 02/14/25 03:22
02/13/25
09:53
Nwy-B-Hapcsdwhxxz Pept 3400
LAB Results
02/13/25 02/13/25 02/14/25
14:39 20:03 03:22
Troponin I 0.029 0.032 0.037 H*
Physical Exam
Constitutional: No acute distress and Comfortable
EENT: Anicteric and Moist mucous membranes
Cardiovascular: Pedal edema present, JVD present, S1S2 is normal and Murmur/rub/gallop absent
Respiratory: Respiratory effort normal and Other (Decreased in the bilateral bases.)
GI: Soft, Distention absent, Flat, Non tender and Normal bowel sounds
Neuro/Psych: AO x 3
Data Reviewed
-
Date of Service: February 14, 2025
Medical Decision Making: Reviewed Test Results, Independent Historian Assessment and Test Interpretation
EKG: Tracing Personally Visualized and interpreted and Report Reviewed by me
Echo: Report Reviewed by me
X-Ray/CT/US/MRI/NUC/PET: Image Personally Visualized and interpreted and Report Reviewed by me
Medical Tests (PFT, Pathology etc): Image Personally Visualized and interpreted and Report Reviewed by me
Labs: Labs Reviewed by me
Old Records: Reviewed
--- NOTE | 2025-02-14 13:14 | W.PN.HOSP.TC ---
Today's Communication/Plan
-
.
Assessment / Plan
Assessment / Plan
Derian Pyle is a 79 y/o male PMHx of CAD (STEMI s/p PCI), persistent a-fib, HTN, HLD, and NIDDM who presented to the ED with cough and shortness of breath progressively worsening over the past 2 weeks and found to be tachycardia with increased
oxygen demands, BNP of 3400, and CXR indicative of pulmonary edema. Patient was admitted for acute CHF exacerbation secondary to atrial fibrillation with rapid ventricular response and started on Cardizem drip and IV Lasix with Heparin drip.
1. Acute Heart Failure Exacerbation 2/2 Atrial Fibrillation with Rapid Ventricular Response
- Management per Cardiology
- ECHO (12/2024): Acute Hypoxic Respiratory Insufficiency secondary to Acute Heart Failure
- Continue IV Lasix; improving clinically
- ECHO pending.
- GDMT as per cardiology
- Lasix 40mg IV, Metoprolol 25mg daily, Lisinopril 2.5 mg daily
- Start Dapagliflozin 10 mg daily
- MRA not indicated
2. Atrial Fibrillation with Rapid Ventricular Response
- Patient currently in IVU with titratable Cardizem drip
- Continue rate control, rates 110-130 in room
- CHADS2-VaSc = 6
- Eliquis currently on hold for pending urologic surgery
3. Acute Hypoxic Respiratory Insufficiency (resolved)
- Not currently on supplemental O2
4. CAD s/p PCI
- Plavix on hold for urologic procedure
- Continue ASA 81mg
- Continue Statin
5. Eseential HTN
- Continue metoprolol and lisinopril
- Monitor blood pressure closely while on Cardizem drip
6. Hyperlipidemia
-Continue atorvastatin
7. Diabetes Mellitus, Type II
-Hold metformin
-Montior sugars and continue coverage insulin
8. BPH
-Monitor bladder scans
9. Scheduled for Urologic Procedure
- Will reach out to urology for reccs
DVT PPx: On Hep gtt
Code Status: Full Code
Diet: Low CHO
Anticipated Discharge: > 48 hours
Subjective/Interval History
-
Date of Service: February 14, 2025
Derian Pyle is a 79 y/o male PMHx of CAD (STEMI s/p PCI), persistent a-fib, HTN, HLD, and NIDDM who presented to the ED with cough and shortness of breath. Since this is my first time seeing the patient, I performed a full history and physical.
Briefly, the patient has been having progressivley worsening shortness of breath over the past few weeks. Within this time period, the patient endorses making a trip to [facility] and returning 2 days ago. Patient states his shortness of breath began
prior to the outbound trans ocean[place] flight, however he noticed that his symptoms were progressively worsening during his trip and ultimately led to his presentation to the emergency department 2 days after returning. He also notes that he has been
having worsening cough. Patient presented upon returning home from [facility], he notes that his leg started become more swollen. He is unaware of a previous history of congestive heart failure.
After being admitted with a diagnosis of acute heart failure exacerbation in the setting of atrial fibrillation with rapid ventricular response and being started on IV Lasix, diltiazem drip, and heparin drip, the patient endorses that his breathing
is much better this morning. He is able to walk to and from the bathroom without getting short of breath. He is able to lay in bed at a 15 degree incline without getting short of breath. He does not, and never has, felt his palpitations in the
setting of atrial fibrillation.
Objective Data
-
Labs:
Laboratory Results
02/14/25 02/14/25 02/14/25
03:22 10:45 17:00
WBC 8.3
Hgb 14.1
Hct 42.6
Plt Count 177
APTT 62.6 H 84.7 H Pending
Sodium 139
Potassium 3.2 L
Chloride 105
Carbon Dioxide 29
BUN 14
Creatinine 0.7
Glucose 118 H
Calcium 8.8
Vital Signs:
Vital Signs
Temp Pulse Resp BP Pulse Ox
98.2 F 66 17 110/87 90
02/14/25 11:20 02/14/25 11:20 02/14/25 11:20 02/14/25 08:15 02/14/25 11:20
I&O
02/13/25 02/14/25 02/15/25
05:59 06:59 06:59
Output Total 2850 / 2850 400 / 400
Balance -2850 / -2850 -400 / -400
Review of Systems
-
History Source: Patient
All other systems: Reviewed and negative
Physical Exam
-
General: No Apparent Distress and Comfortable
HEENT: Normocephalic, Atraumatic and Moist Mucous Membranes
Respiratory: Non Labored Respirations and Decreased Breath Sounds (bases)
Cardiac: Irregular Rhythm, Tachycardic and Other (trace edema to the ankle, improved from presentation); Negative Murmur, Rub, Calf Tenderness or JVD
Musculoskeletal: No Clubbing, No Cyanosis and Other (venous stasis dermatitis)
Skin: Warm
Neuro: Awake, Alert and Oriented
Psych: Calm
Data Reviewed
-
Diagnostic Radiology: Image personally visualized and interpreted, Report Reviewed by me and Discussed with Patient
Labs: Labs Reviewed by me and Discussed with Patient
[2025-02-14] MEDS: LANOXIN 500 MCG IV (13:44)
--- NOTE | 2025-02-14 13:44 | CM ---
Reviewed chart. Met with Mr. Pyle to review discharge plans. He states prior to admission he resides in a four story home with no steps to enter. He states he has a full flight of steps to get to bedroom/full bathroom. He states he has a powder
room on the first floor. He states prior to admission he was independent with ambulation and adls. He states he does not have any DME in the home. He states he has a prescription plan and uses [facility]. Medical work-up in progress. The
discharge plan is to return home with his spouse when medically stable.
[2025-02-14 13:52] LABS: Glucose - Point of Care 133 mg/dl (70-99)
[2025-02-14 14:28] VITALS: BP 103/83; PULSE 115
[2025-02-14] MEDS: HEPARIN 25000 UNITS/250 ML IV (16:17)
[2025-02-14 17:39] LABS: APTT 94.1 Sec (23.4-35.0)
[2025-02-14] MEDS: LIPITOR 40 MG PO (17:39)
[2025-02-14 18:23] LABS: Glucose - Point of Care 147 mg/dl (70-99)
[2025-02-14 19:25] VITALS: BP 123/78
--- NOTE | 2025-02-14 19:26 | PTCARENOTE ---
~5540-1681: Handoff report received from momo RN. Pt Aox4, foregtful at times, Afib 100s-130s on cardizem @ 15, SBP 110s, RA satting 92%. Heparin infusing @ 1200. +2/+1 pulses, +1 pitting edema in b/l pedals. Standby assist OOB, at
bedside. Chair and bed alarm in place for safety. Bloodwork drawn and sent to lab. All needs met at this time, call joseph within reach.
~[id number]: Messaged Dr. Sorto informing him that with patient on cardizem @ 15, his HR remains Afib 100s-130s, no new orders at this time. PTT resulted therapeutic, next PTT ordered per protocol.
~7793-4066: Digoxin loading started per order. Pt remains in Afib 90s-110s now. All needs met, call joseph within reach.
~[id number]: Patient OOB in chair. VSS at this time. All needs met, call joseph within reach. handoff reprot given to mikayla RN.
[2025-02-14 20:42] VITALS: BP 122/79
[2025-02-14] MEDS: LANOXIN 250 MCG IV (20:45)
[2025-02-14 22:28] LABS: Glucose - Point of Care 120 mg/dl (70-99)
[2025-02-14 22:42] VITALS: BP 131/93
[2025-02-15] VITALS (7 sets, daily range): BP systolic 114–141; BP diastolic 77–110; BMI 30.1
[2025-02-15] MEDS: CARDIZEM 125 IV ×3 (00:40→18:04)
[2025-02-15] MEDS: LANOXIN 250 MCG IV (02:12)
[2025-02-15 02:33] LABS: Hematocrit 42.5 % (39.0-52.0); Hemoglobin 14.0 g/dL (13.0-18.0); Mean Corp Hgb Conc. 32.9 g/dL (33.0-37.0); Mean Corpuscular Volume 86.0 fL (80.0-94.0); Platelet Count 165 10^3/uL (130-400); Red Cell Dist. Width 15.5 % (11.5-14.5)
--- NOTE | 2025-02-15 02:44 | PTCARENOTE ---
Assumed care of patient at change of shift. Pt AAOx3 and forgetful at times. Tele remains Afib with occasional PVCs, HR in the 90-110's. Denies any pain. Pt GUERRERO, sating 93-95% RA. Has an occasional MEDICAL RECORD SPECIALIST cough. Voiding austin color urine. IV Cardizem
and IV Heparin gtt maintained --see worklist for further info. Call joseph in reach.
[2025-02-15 02:47] LABS: APTT 112.3 Sec (23.4-35.0)
[2025-02-15 03:22] LABS: Blood Urea Nitrogen 17 mg/dl (9-20); Calcium 8.6 mg/dl (8.4-10.2); Carbon Dioxide 26 mmol/L (22-30); Chloride 106 mmol/L (98-107); Estimated Creatinine Clearance 84 ml/min; Glucose 136 mg/dl (70-99); Potassium 3.4 mmol/L (3.5-5.1); Sodium 137 mmol/L (135-145); eGFR > 60.00
[2025-02-15] MEDS: KCL 20 MEQ PO (05:42)
--- NOTE | 2025-02-15 08:43 | W.PN.CD ---
Today's Communication / Plan
-
Increase metoprolol to 25 mg twice daily. Start p.o. diltiazem 120 mg daily. Continue digoxin 125 mcg daily.
Wean diltiazem drip for goal HR less than 110 bpm with ambulation.
Will discuss hydrocele drainage with urology. Previously planned for tomorrow but will likely need to be pushed back.
Continue heparin for now pending possible procedure.
Impression / Plan
-
Impression/Plan: 79 y/o male with NIDDM, persistent atrial fibrillation, CAD with STEMI s/p culprit PCI (CSI + Medtronic Rafa 4.0 x 38 LOLA, 08/05/2024) and PCI of residual ostial LAD disease (Medtronic Rafa [place] 3.5 x 22 LOLA with kissing balloon
inflation to establish a eliana-tyrel), ischemic cardiomyopathy (LVEF 45-50%) admitted with shortness in breath with RVR of his AF.
On Friday he started holding Eliquis/Plavix for planned drainage of hydrocele on 02/16/2025. Presented to ER with shortness of breath found to be in A-fib with RVR and with acute CHF. Plan is for rate control of A-fib and to get him to
hydrocele drainage outpatient. Then possible CARY/cardioversion after.
#Shortness of breath
-Acute.
-Appears to be a combination of CHF and A-fib with RVR.
-Diuresis with IV furosemide.
-Additional rate control of A-fib.
#Atrial fibrillation
-Persistent but acute RVR.
-Increase metoprolol succinate to 25 mg twice daily. Start diltiazem 120 mg daily.
-Wean diltiazem drip for goal HR less than 110 bpm with ambulation
-Digoxin loaded on 02/14/2025. Continue 125 mcg daily.
-CHADS2-Vasc = 6 (CHF, HTN, Age x2, DM, vascular disease).
-Patient chronically treated with apixaban, but previously on hold due to upcoming surgery. Now on heparin for possible procedure.
#Left heart failure
-Acute. Severe exacerbation requiring diuresis with IV furosemide.
- TTE 02/14/2025: LVEF 50-55%, basal to mid inferolateral hypokinesis, mild AR, mild MR, PASP 22 mmHg
-GDMT as hemodynamics will tolerate:
-Diuretics: Furosemide 40 mg IV.
-Beta woo: Metoprolol succinate 25 mg BID
-ACEI/ARB/ARNi: Lisinopril 2.5 mg daily.
-MRA: None.
-SGLT2i: Start dapagliflozin 10 mg daily. Case management consult.
-ICD: Not currently indicated.
#Coronary artery disease
-Chronic, stable.
-History of myocardial infarction with PCI of culprit LCx and non-culprit LAD.
-Clopidogrel on hold for surgery as previously noted. Switched to ASA 81mg.
-Continue atorvastatin.
#Cystocele
-Chronic, stable.
-Additional management as directed by urology.
-As noted above patient would had anticipated procedure on Friday timing will need to be reassessed.
Subjective/Interval History:
Dyspnea improved.
AF remains, HR 80-100s
BP stable on diltiazem gtt.
DATA:
Cardiac catheterization/PCI, 08/05/2024:
CONCLUSIONS
1. Right dominant circulation with a 70% lesion in the proximal margin of the RCA, along, 50% lesion in the mid RCA as it approaches the crux, a 50% lesion in the distal RCA spanning the origin of the small RPDA, a densely calcified 70% lesion in
the proximal LAD with densely calcified moderate disease throughout the remainder of the LAD and large diagonal and a large size, nondominant circumflex with a densely calcified initially 100% lesion in the ostium that progresses into a densely
calcified 70% lesion in the ostium of OM 2, status post aspiration thrombectomy (YANIRA catheter), CSI orbital atherectomy (CSI diamondback) and successful IVUS guided PCI (Medtronic [place] 4.0 x 38 LOLA, postdilated with a 4.0 NC balloon) with
reduction in the circumflex stenoses to 0%, restoring VIJAYA-3 flow.
2. Moderately elevated filling pressures (LVEDP = 22 mmHg at 84.4 kg).
3. Paroxysmal atrial fibrillation, converted after amiodarone bolus.
Cardiac Catheterization/PCI, 08/06/2024:
CONCLUSION: Successful IVUS-guided PCI with LOLA to LAD ([place] frontier 3.5 x 22 mm drug-eluting stent) with POBA of the ostial LCx stent to achieve kissing balloon inflation at the neocarina (3.5 NC balloons in both the LAD and LCx).
Cardiac Catheterization/iFR, 08/25/2024:
CONCLUSIONS
1. Right dominant circulation with patent stents in the ostia of the LAD and circumflex, a 50-60% lesion in the mid LAD immediately after the origin of the sole diagonal, a 60% lesion in the proximal margin of the diagonal and nonocclusive tandem
50% lesions in the proximal and mid/distal RCA (IFR = 0.93).
2. Mildly elevated filling pressures (LVEDP = 18 mmHg at 81.0 kg).
3. Known persistent atrial fibrillation.
TTE, 12/28/2024:
SUMMARY
1. Low normal LV systolic function. LVEF 50-55%. Mild LVH. Grade 2 diastolic dysfunction.
2. Basal to mid inferolateral wall hypokinesis.
3. Left atrial enlargement.
4. Mild aortic regurgitation.
5. Mild mitral regurgitation.
6. Compared to echocardiogram report 08/01/2024 LVEF has improved from 45-50% to 50-55%. Diastolic function is improved from grade 3 to grade 2. PASP has fallen from 53 mmHg to normal. It is possible PASP is underestimated on today's study.
CXR, 02/13/2025:
IMPRESSION:
As described, radiographic findings most suggestive of interstitial pulmonary edema pattern with small bilateral pleural effusions.
Physical Exam
Vital Signs/Labs
Vital Signs
Temp Pulse Resp BP Pulse Ox
97.8 F 90 22 129/87 93
02/15/25 07:11 02/15/25 06:00 02/15/25 07:11 02/15/25 02:10 02/15/25 02:11
02/14/25 02/15/25 02/16/25
06:59 06:59 06:59
Actual Weight 175 lb 7.807 oz 175 lb 7.807 oz
02/15/25 02:25
02/15/25 02:25
APTT 112.3 Sec (23.4-35.0) H 02/15/25 02:25
Magnesium 1.9 mg/dl (1.6-2.3) 02/14/25 03:22
Triglycerides 88 mg/dl (10-149) 02/14/25 03:22
LDL Cholesterol, Calc 42 mg/dl 02/14/25 03:22
VLDL Cholesterol, Calc 17 mg/dl (0-30) 02/14/25 03:22
HDL Cholesterol 48 mg/dl 02/14/25 03:22
02/13/25
09:53
Wyt-X-Oqimevffunq Pept 3400
LAB Results
02/13/25 02/13/25 02/14/25
14:39 20:03 03:22
Troponin I 0.029 0.032 0.037 H*
Physical Exam
Constitutional: No acute distress and Comfortable
Cardiovascular: Rhythm/rate is irregular, Pedal edema present, S1S2 is normal and Murmur/rub/gallop absent
Respiratory: Respiratory effort normal and Lungs clear to auscul.
Neuro/Psych: AO x 3
Data Reviewed
-
Date of Service: February 15, 2025
Medical Decision Making: Reviewed Test Results and Test Interpretation
EKG: Tracing Personally Visualized and interpreted
Echo: Report Reviewed by me
Labs: Labs Reviewed by me
[2025-02-15] MEDS: ASPIR LOW (ENTERIC COATED) 81 MG PO (08:51)
[2025-02-15] MEDS: CARDIZEM CD 120 MG PO (08:51)
[2025-02-15] MEDS: ZESTRIL 2.5 MG PO (08:51)
[2025-02-15] MEDS: FARXIGA 10 MG PO (08:51)
[2025-02-15] MEDS: LASIX 40 MG IV (08:52)
--- NOTE | 2025-02-15 09:17 | CM ---
Reviewed chart. Telephone call to his prescription plan to check on co-pay for Farxiga. His co-pay for Farxiga 10 mg po daily is $143.03. a month. He does not have coverage for the the generic. Met with Mr and Edenilson Cai to review co-pay coverage
and cost. He is agreeable to the coverage. Prior to admission he resides in a four story home with no steps to enter. He has a full flight of steps to get to bedroom/full bathroom. He has a powder room on the first floor. Prior to admission he was
independent with ambulation and adls. He does not have any DME in the home. He has a prescription plan and uses [facility]. Medical work-up in progress. The discharge plan is to return home with his spouse when medically stable.
[2025-02-15 09:24] LABS: Glucose - Point of Care 137 mg/dl (70-99)
[2025-02-15] MEDS: NOVOLOG FLEXPEN-LOW RESISTANCE SC ×2 (09:29→17:42)
--- NOTE | 2025-02-15 11:12 | PTCARENOTE ---
Pt ambulating in room, steady on his feet, denies pain, denies SOB.
[2025-02-15] MEDS: TOPROL XL 25 MG PO ×2 (11:24→20:20)
[2025-02-15] MEDS: TOPROL XL PO (11:27)
[2025-02-15] MEDS: LANOXIN 125 MCG PO (11:27)
[2025-02-15 12:12] LABS: APTT 70.9 Sec (23.4-35.0)
--- NOTE | 2025-02-15 12:17 | W.PN.HOSP.TC ---
Today's Communication/Plan
-
.
Assessment / Plan
Assessment / Plan
Derian Pyle is a 79 y/o male PMHx of CAD (STEMI s/p PCI), persistent a-fib, HTN, HLD, and NIDDM who presented to the ED with cough and shortness of breath progressively worsening over the past 2 weeks and found to be tachycardic with increased
oxygen demands, BNP of 3400, and CXR indicative of pulmonary edema. Patient was admitted for acute CHF exacerbation secondary to atrial fibrillation with rapid ventricular response and started on Cardizem drip and IV Lasix with Heparin drip.
1. Acute Heart Failure Exacerbation 2/2 Atrial Fibrillation with Rapid Ventricular Response
- Management per Cardiology
- ECHO (12/2024): LVEF has improved from 45-50% to 50-55%. Diastolic function is improved from grade 3 to grade 2. PASP has fallen from 53 mmHg to normal.
- ECHO (02/14/2025): No change from above.
- Continue IV Lasix; improving clinically
- GDMT as per cardiology
- Lasix 40mg IV, Metoprolol 25mg BID (increased from daily), Lisinopril 2.5 mg daily
- Start Dapagliflozin 10 mg daily
- MRA not indicated
2. Atrial Fibrillation with Rapid Ventricular Response
- Patient currently in IVU with titratable Cardizem drip @ max; wean for goal HR < 110 with ambulation
- Started on Cardizem 120 mg PO by cardiology
- Loaded with digoxin and started on 125 mcg daily.
- Rates continue to vary largely, possible cardioversion?
- CHADS2-VaSc = 6
- Eliquis currently on hold for pending urologic surgery; on Heparin drip.
3. Acute Hypoxic Respiratory Insufficiency (resolved)
- Not currently on supplemental O2
4. CAD s/p PCI
- Plavix on hold for urologic procedure
- Continue ASA 81mg
- Continue Statin
5. Eseential HTN
- Continue metoprolol and lisinopril
- Monitor blood pressure closely while on Cardizem drip
6. Hyperlipidemia
-Continue atorvastatin
7. Diabetes Mellitus, Type II
-Hold metformin
-Montior sugars and continue coverage insulin
8. BPH
-Monitor bladder scans
9. Scheduled for Urologic Procedure
- Will reach out to urology for reccs
DVT PPx: On Hep gtt
Code Status: Full Code
Diet: Low CHO
Anticipated Discharge: 24 - 48 hours
Subjective/Interval History
-
Date of Service: February 15, 2025
Patient states that dyspnea is markedly improved since admission.
Additionally endorses improvement in lower extremity edema.
Otherwise endorses no acute complaints.
Objective Data
-
Labs:
Laboratory Results
02/15/25 02/15/25
02:25 11:49
WBC 6.9
Hgb 14.0
Hct 42.5
Plt Count 165
APTT 112.3 H 70.9 H
Sodium 137
Potassium 3.4 L
Chloride 106
Carbon Dioxide 26
BUN 17
Creatinine 0.7
Glucose 136 H
Calcium 8.6
Vital Signs:
Vital Signs
Temp Pulse Resp BP Pulse Ox
97.7 F 97 18 123/77 95
02/15/25 11:58 02/15/25 11:27 02/15/25 11:58 02/15/25 11:26 02/15/25 11:58
I&O
02/14/25 02/15/25 02/16/25
06:59 06:59 06:59
Intake Total 320 / 320 240 / 240
Output Total 2850 / 2850 1325 / 1325 1350 / 1350
Balance -2850 / -2850 -1005 / -1005 -1110 / -1110
Review of Systems
-
History Source: Patient
All other systems: Reviewed and negative
Physical Exam
-
General: No Apparent Distress, Comfortable and Conversant
HEENT: Normocephalic, Atraumatic and Moist Mucous Membranes
Respiratory: Clear to Auscultation and Non Labored Respirations
Cardiac: Irregular Rhythm
Musculoskeletal: No Clubbing, No Cyanosis, Edema, Right Lower Extrem (+1) and Edema, Left Lower Extrem (+1)
Skin: Warm
Neuro: Awake, Alert and Oriented
Psych: Calm
Data Reviewed
-
Medical Tests (Nuc Med, Echo etc): Report Reviewed by me and Discussed with Patient
Labs: Labs Reviewed by me and Discussed with Patient
[2025-02-15 12:52] LABS: Glucose - Point of Care 191 mg/dl (70-99)
[2025-02-15] MEDS: NOVOLOG FLEXPEN-LOW RESISTANCE 1 UNITS SC (12:53)
[2025-02-15] MEDS: HEPARIN 25000 UNITS/250 ML IV (14:36)
[2025-02-15 17:41] LABS: Glucose - Point of Care 145 mg/dl (70-99)
[2025-02-15] MEDS: LIPITOR 40 MG PO (17:42)
[2025-02-15] MEDS: ELIQUIS 5 MG PO (20:20)
[2025-02-16] VITALS (8 sets, daily range): BP systolic 116–154; BP diastolic 78–114; BMI 29.3
--- NOTE | 2025-02-16 00:51 | PTCARENOTE ---
Received pt at change of shift resting in bed. Afib on tele-HR 80's-100's. pt denies any CP or SOB at this time. Cardizem gtt infusing per protocol. Heparin gtt d/c at 1999 per order. Encouraged pt to call RN with any questions/concerns, call joseph
within reach.
[2025-02-16] MEDS: CARDIZEM 125 IV (02:22)
[2025-02-16 03:08] LABS: Blood Urea Nitrogen 18 mg/dl (9-20); Calcium 9.0 mg/dl (8.4-10.2); Carbon Dioxide 27 mmol/L (22-30); Chloride 106 mmol/L (98-107); Estimated Creatinine Clearance 74 ml/min; Glucose 127 mg/dl (70-99); Potassium 3.8 mmol/L (3.5-5.1); Sodium 137 mmol/L (135-145); eGFR > 60.00
[2025-02-16 05:30] LABS: Glucose - Point of Care 138 mg/dl (70-99)
--- NOTE | 2025-02-16 07:11 | W.PN.HOSP.TC ---
Today's Communication/Plan
-
.
Assessment / Plan
Assessment / Plan
Derian Pyle is a 79 y/o male PMHx of CAD (STEMI s/p PCI), persistent a-fib, HTN, HLD, and NIDDM who presented to the ED with cough and shortness of breath progressively worsening over the past 2 weeks and found to be tachycardic with increased
oxygen demands, BNP of 3400, and CXR indicative of pulmonary edema. Patient was admitted for acute CHF exacerbation secondary to atrial fibrillation with rapid ventricular response and started on Cardizem drip and IV Lasix with Heparin drip.
1. Acute Heart Failure Exacerbation 2/2 Atrial Fibrillation with Rapid Ventricular Response
- Management per Cardiology
- ECHO (12/2024): LVEF has improved from 45-50% to 50-55%. Diastolic function is improved from grade 3 to grade 2. PASP has fallen from 53 mmHg to normal.
- ECHO (02/14/2025): No change from above.
- Continue IV Lasix; improving clinically
- GDMT as per cardiology
- Lasix 40mg IV, Metoprolol 25mg BID (increased from daily), Lisinopril 2.5 mg daily
- Start Dapagliflozin 10 mg daily
- MRA not indicated
2. Atrial Fibrillation with Rapid Ventricular Response
- Initially on Cardizem drip, discontinued
- Started on Cardizem 120 mg PO by cardiology
- Loaded with digoxin and started on 125 mcg daily.
- Rate controlled this morning, patient for CARY ECV with cardiology around noon
- CHADS2-VaSc = 6
- Eliquis restarted (urologic procedure delayed)
3. Acute Hypoxic Respiratory Insufficiency (resolved)
- Not currently on supplemental O2
4. CAD s/p PCI
- Plavix restarted (urologic procedure delayed)
- Continue ASA 81mg
- Continue Statin
5. Eseential HTN
- Continue metoprolol and lisinopril
6. Hyperlipidemia
-Continue atorvastatin
7. Diabetes Mellitus, Type II
-Hold metformin
-Montior sugars and continue coverage insulin
8. BPH
-Monitor bladder scans
9. Scheduled for Urologic Procedure
- Delayed, patient will need to be on anticoagulation for least 1 month after CARY CV
DVT PPx: On Hep gtt
Code Status: Full Code
Diet: Low CHO
Anticipated Discharge: 24 - 48 hours
Subjective/Interval History
-
Date of Service: February 16, 2025
Patient seen and examined while resting comfortably in bed.
Has no acute complaints this morning.
Denies chest pain, shortness of breath, dizziness. Endorses some lingering cough, residual lower extremity edema.
Has been up and out of bed without issue.
Agreed to CARY ECV with sanitarian aide. Spoke with him this morning regarding procedure.
Objective Data
-
Labs:
Laboratory Results
02/16/25
02:33
Sodium 137
Potassium 3.8
Chloride 106
Carbon Dioxide 27
BUN 18
Creatinine 0.8
Glucose 127 H
Calcium 9.0
Vital Signs:
Vital Signs
Temp Pulse Resp BP Pulse Ox
97.8 F 87 16 119/80 97
02/16/25 02:27 02/16/25 06:00 02/16/25 02:27 02/16/25 02:27 02/16/25 02:27
I&O
02/15/25 02/16/25 02/17/25
06:59 06:59 06:59
Intake Total 320 / 320 480 / 480
Output Total 1325 / 1325 1625 / 1625
Balance -1005 / -1005 -1145 / -1145
Review of Systems
-
History Source: Patient
All other systems: Reviewed and negative
Physical Exam
-
General: No Apparent Distress, Comfortable and Conversant
HEENT: Normocephalic, Atraumatic and Moist Mucous Membranes
Respiratory: Clear to Auscultation and Non Labored Respirations; Negative Wheezes, Rales, Rhonchi or Crackles
Cardiac: Irregular Rhythm and Other (Rates between 80 and 100 on monitor during exam)
GI: Soft
Musculoskeletal: No Clubbing, No Cyanosis and Other (1+ edema to the level of the mid davis bilaterally)
Skin: Warm
Neuro: Awake, Alert and Oriented
Psych: Calm
Data Reviewed
-
Labs: Labs Reviewed by me and Discussed with Patient
--- NOTE | 2025-02-16 07:12 | W.PN.CD ---
Today's Communication / Plan
-
patient is on cardizem digoxin and BB. afib rates controlled
- hold meds this morning.
- plan for TEECV today. Reviewed procedure and consent signed
-no plan for elective urologic procedure at this time. Procedure will be delayed . patient will need to be on uninterrupted anticoagulation for at lest one month post CV
Impression / Plan
-
Impression/Plan: 79 y/o male with NIDDM, persistent atrial fibrillation, CAD with STEMI s/p culprit PCI (CSI + Medtronic [place] 4.0 x 38 LOLA, 08/05/2024) and PCI of residual ostial LAD disease (Medtronic [place] 3.5 x 22 LOLA with kissing balloon
inflation to establish a eliana-tyrel), ischemic cardiomyopathy (LVEF 45-50%) admitted with shortness in breath with RVR of his AF.
On Friday he started holding Eliquis/Plavix for planned drainage of hydrocele on 02/16/2025. Presented to ER with shortness of breath found to be in A-fib with RVR and with acute CHF. Plan is for rate control of A-fib and to get him to
hydrocele drainage outpatient. Then possible CARY/cardioversion after.
#Shortness of breath
- combination of CHF and A-fib with RVR.
-improved.
- plan for TEECV
#Atrial fibrillation
-Persistent .
- metoprolol succinate to 25 mg twice daily. Start diltiazem 120 mg daily.
- stop IV cardizme
- plan for TEECV
-Wean diltiazem drip for goal HR less than 110 bpm with ambulation
-Digoxin loaded on 02/14/2025. Continue 125 mcg daily.
-CHADS2-Vasc = 6 (CHF, HTN, Age x2, DM, vascular disease).
-Patient chronically treated with apixaban, but previously on hold due to upcoming surgery. Now on heparin for possible procedure.
#Left heart failure
-Acute. Severe exacerbation requiring diuresis with IV furosemide.
- TTE 02/14/2025: LVEF 50-55%, basal to mid inferolateral hypokinesis, mild AR, mild MR, PASP 22 mmHg
-GDMT as hemodynamics will tolerate:
-Diuretics: Furosemide 40 mg IV.
-Beta woo: Metoprolol succinate 25 mg BID
-ACEI/ARB/ARNi: Lisinopril 2.5 mg daily.
-MRA: None.
-SGLT2i: Start dapagliflozin 10 mg daily. Case management consult.
-ICD: Not currently indicated.
#Coronary artery disease
-Chronic, stable.
-History of myocardial infarction with PCI of culprit LCx and non-culprit LAD.
-Clopidogrel on hold for surgery as previously noted. Switched to ASA 81mg.
-Continue atorvastatin.
#Cystocele
-Chronic, stable.
-Additional management as directed by urology.
-no plan for elective urologic procedure at this time. Procedure will be delayed . patient will need to be on uninterrupted anticoagulation for at lest one month post CV
Subjective/Interval History:
Dyspnea improved.
AF remains, HR 80-100s
BP stable on diltiazem gtt.
DATA:
Cardiac catheterization/PCI, 08/05/2024:
CONCLUSIONS
1. Right dominant circulation with a 70% lesion in the proximal margin of the RCA, along, 50% lesion in the mid RCA as it approaches the crux, a 50% lesion in the distal RCA spanning the origin of the small RPDA, a densely calcified 70% lesion in
the proximal LAD with densely calcified moderate disease throughout the remainder of the LAD and large diagonal and a large size, nondominant circumflex with a densely calcified initially 100% lesion in the ostium that progresses into a densely
calcified 70% lesion in the ostium of OM 2, status post aspiration thrombectomy (YANIRA catheter), CSI orbital atherectomy (CSI diamondback) and successful IVUS guided PCI (Medtronic [place] 4.0 x 38 OLLA, postdilated with a 4.0 NC balloon) with
reduction in the circumflex stenoses to 0%, restoring VIJAYA-3 flow.
2. Moderately elevated filling pressures (LVEDP = 22 mmHg at 84.4 kg).
3. Paroxysmal atrial fibrillation, converted after amiodarone bolus.
Cardiac Catheterization/PCI, 08/06/2024:
CONCLUSION: Successful IVUS-guided PCI with LOLA to LAD ([place] 3.5 x 22 mm drug-eluting stent) with POBA of the ostial LCx stent to achieve kissing balloon inflation at the neocarina (3.5 NC balloons in both the LAD and LCx).
Cardiac Catheterization/iFR, 08/25/2024:
CONCLUSIONS
1. Right dominant circulation with patent stents in the ostia of the LAD and circumflex, a 50-60% lesion in the mid LAD immediately after the origin of the sole diagonal, a 60% lesion in the proximal margin of the diagonal and nonocclusive tandem
50% lesions in the proximal and mid/distal RCA (IFR = 0.93).
2. Mildly elevated filling pressures (LVEDP = 18 mmHg at 81.0 kg).
3. Known persistent atrial fibrillation.
TTE, 12/28/2024:
SUMMARY
1. Low normal LV systolic function. LVEF 50-55%. Mild LVH. Grade 2 diastolic dysfunction.
2. Basal to mid inferolateral wall hypokinesis.
3. Left atrial enlargement.
4. Mild aortic regurgitation.
5. Mild mitral regurgitation.
6. Compared to echocardiogram report 08/01/2024 LVEF has improved from 45-50% to 50-55%. Diastolic function is improved from grade 3 to grade 2. PASP has fallen from 53 mmHg to normal. It is possible PASP is underestimated on today's study.
CXR, 02/13/2025:
IMPRESSION:
As described, radiographic findings most suggestive of interstitial pulmonary edema pattern with small bilateral pleural effusions.
Physical Exam
Vital Signs/Labs
Vital Signs
Temp Pulse Resp BP Pulse Ox
97.8 F 87 16 119/80 97
02/16/25 02:27 02/16/25 06:00 02/16/25 02:27 02/16/25 02:27 02/16/25 02:27
02/15/25 02/16/25 02/17/25
06:59 06:59 06:59
Actual Weight 79.6 kg 77.4 kg
02/15/25 02:25
02/16/25 02:33
APTT Cancelled 02/15/25 19:00
Magnesium 1.9 mg/dl (1.6-2.3) 02/14/25 03:22
Triglycerides 88 mg/dl (10-149) 02/14/25 03:22
LDL Cholesterol, Calc 42 mg/dl 02/14/25 03:22
VLDL Cholesterol, Calc 17 mg/dl (0-30) 02/14/25 03:22
HDL Cholesterol 48 mg/dl 02/14/25 03:22
02/13/25
09:53
Gnn-D-Mgbnwtaugzq Pept 3400
LAB Results
02/13/25 02/13/25 02/14/25
14:39 20:03 03:22
Troponin I 0.029 0.032 0.037 H*
Physical Exam
Constitutional: No acute distress
Cardiovascular: Rhythm/rate is irregular
Respiratory: Respiratory effort normal, Wheeze Absent and Rhonchi Absent
GI: Soft
Neuro/Psych: Alert and AO x 3
Data Reviewed
-
Date of Service: February 16, 2025
Medical Decision Making: Reviewed Test Results
X-Ray/CT/US/MRI/NUC/PET: Report Reviewed by me
Medical Tests (PFT, Pathology etc): Report Reviewed by me
Labs: Labs Reviewed by me
[2025-02-16] MEDS: FARXIGA 10 MG PO (07:53)
[2025-02-16] MEDS: TOPROL XL 25 MG PO ×2 (07:53→20:18)
[2025-02-16] MEDS: ZESTRIL 2.5 MG PO (07:53)
[2025-02-16] MEDS: PLAVIX 75 MG PO (07:53)
[2025-02-16] MEDS: ELIQUIS 5 MG PO ×2 (07:53→20:18)
[2025-02-16] MEDS: LASIX 40 MG PO (07:59)
--- NOTE | 2025-02-16 12:20 | CM ---
Chart reviewed. Patient is independent of ADLS, lives with his in a 4 STH, 0 JAKOB, 0 DME. Plan is for the patient to return home. CM to follow
--- NOTE | 2025-02-16 12:33 | W.PN.UPDATE ---
Update Note
Progress Note Update
CARY/cardioversion. CARY with no evidence of left atrial appendage thrombus. Difficult to assess left ventricular function possibly mildly reduced with estimated ejection fraction 45 to 50%.
Patient underwent synchronized electrical cardioversion with 200 J, 360 J and 360 J. He appeared to have up to 4 sinus beats after cardioversion that but then went right back in A-fib. Overall unsuccessful cardioversion of A-fib to sinus rhythm.
Continue with rate control will resume oral meds need to be cautious in this patient who has been given beta-woo, Cardizem and digoxin. We will need to consider additional options for rhythm control including antiarrhythmic therapy
[2025-02-16 14:32] LABS: Glucose - Point of Care 110 mg/dl (70-99)
--- NOTE | 2025-02-16 17:00 | PTCARENOTE ---
Pt received this am in afib, rate in the 70's to 100's. Denies any sob or palpitations. Returned from CARY/CV in afib, rate in the 70's to 100's. OOB ad darryl, gait steady. No c/o offered.
[2025-02-16 17:07] LABS: Glucose - Point of Care 272 mg/dl (70-99)
[2025-02-16] MEDS: NOVOLOG FLEXPEN-LOW RESISTANCE 3 UNITS SC (17:12)
[2025-02-16] MEDS: LIPITOR 40 MG PO (17:24)
[2025-02-16 22:16] LABS: Glucose - Point of Care 130 mg/dl (70-99)
[2025-02-17] VITALS (10 sets, daily range): BP systolic 108–142; BP diastolic 71–112; BMI 28.5
[2025-02-17 04:28] LABS: Hematocrit 47.1 % (39.0-52.0); Hemoglobin 15.9 g/dL (13.0-18.0); Mean Corp Hgb Conc. 33.8 g/dL (33.0-37.0); Mean Corpuscular Volume 83.4 fL (80.0-94.0); Platelet Count 172 10^3/uL (130-400); Red Cell Dist. Width 15.4 % (11.5-14.5)
--- NOTE | 2025-02-17 06:02 | PTCARENOTE ---
Pt AFib on monitor, VSS, Pt denies SOB or any pain. Pt independent in and out of the room. Safety measures in place, call joseph within reach
--- NOTE | 2025-02-17 07:46 | W.PN.CD ---
Today's Communication / Plan
-
Increase diltiazem to 360 mg daily as HR has returned to the 120's.
Maintain metoprolol and digoxin.
Apixaban 5 mg BID for therapeutic anticoagulation.
Monitor HR over the course of the day.
Discharge planning, but HR has to be better controlled.
Impression / Plan
-
Impression/Plan: 79 y/o male with NIDDM, persistent atrial fibrillation, CAD with STEMI s/p culprit PCI (CSI + Medtronic [place] 4.0 x 38 LOLA, 08/05/2024) and PCI of residual ostial LAD disease ([employer]tronic [place] 3.5 x 22 LOLA with kissing balloon
inflation to establish a eliana-tyrel), ischemic cardiomyopathy (LVEF 45-50%) admitted with shortness in breath with RVR of his AF.
#Atrial fibrillation
-Persistent.
-Unsuccessful CARY DCCV.
-Rate control with metoprolol 25 mg BID, digoxin 125 mcg daily (after load) and diltiazem 120 mg daily.
-Increase diltiazem to 360 mg daily (previously on gtt @ 15 mg/hour).
-CHADS2-Vasc = 6 (CHF, HTN, Age x2, DM, vascular disease).
-Anticoagulation with apixaban 5 mg BID.
-Plan for outpatient EP consultation to discuss AF ablation.
#HFpEF
-Acute, severe exacerbation requiring diuresis with IV furosemide.
-TTE 02/14/2025: LVEF 50-55%, basal to mid inferolateral hypokinesis, mild AR, mild MR, PASP 22 mmHg.
-GDMT as hemodynamics will tolerate:
-Diuretics: Furosemide 40 mg PO daily.
-Beta woo: Metoprolol succinate 25 mg BID
-ACEI/ARB/ARNi: Lisinopril 2.5 mg daily.
-MRA: None.
-SGLT2i: Dapagliflozin 10 mg daily.
-ICD: Not currently indicated.
#Coronary artery disease
-Chronic, stable.
-History of myocardial infarction with PCI of culprit LCx and non-culprit LAD.
-Clopidogrel on hold for surgery as previously noted. Switched to ASA 81mg.
-Continue atorvastatin.
#Cystocele
-Chronic, stable.
-Additional management as directed by urology.
-No plan for elective urologic procedure at this time. Procedure will be delayed. Patient will need to be on uninterrupted anticoagulation for at lest one month post CV.
Subjective/Interval History:
Weight down 2.2 kg from yesterday.
CARY DCCV x3 unsuccessful yesterday.
HR is now back up to 120 bpm.
He feels well.
DATA:
Cardiac catheterization/PCI, 08/05/2024:
CONCLUSIONS
1. Right dominant circulation with a 70% lesion in the proximal margin of the RCA, along, 50% lesion in the mid RCA as it approaches the crux, a 50% lesion in the distal RCA spanning the origin of the small RPDA, a densely calcified 70% lesion in
the proximal LAD with densely calcified moderate disease throughout the remainder of the LAD and large diagonal and a large size, nondominant circumflex with a densely calcified initially 100% lesion in the ostium that progresses into a densely
calcified 70% lesion in the ostium of OM 2, status post aspiration thrombectomy (YANIRA catheter), CSI orbital atherectomy (CSI diamondback) and successful IVUS guided PCI ([employer]onic [place] 4.0 x 38 LOLA, postdilated with a 4.0 NC balloon) with
reduction in the circumflex stenoses to 0%, restoring VIJAYA-3 flow.
2. Moderately elevated filling pressures (LVEDP = 22 mmHg at 84.4 kg).
3. Paroxysmal atrial fibrillation, converted after amiodarone bolus.
Cardiac Catheterization/PCI, 08/06/2024:
CONCLUSION: Successful IVUS-guided PCI with LOLA to LAD ([place] 3.5 x 22 mm drug-eluting stent) with POBA of the ostial LCx stent to achieve kissing balloon inflation at the neocarina (3.5 NC balloons in both the LAD and LCx).
Cardiac Catheterization/iFR, 08/25/2024:
CONCLUSIONS
1. Right dominant circulation with patent stents in the ostia of the LAD and circumflex, a 50-60% lesion in the mid LAD immediately after the origin of the sole diagonal, a 60% lesion in the proximal margin of the diagonal and nonocclusive tandem
50% lesions in the proximal and mid/distal RCA (IFR = 0.93).
2. Mildly elevated filling pressures (LVEDP = 18 mmHg at 81.0 kg).
3. Known persistent atrial fibrillation.
TTE, 12/28/2024:
SUMMARY
1. Low normal LV systolic function. LVEF 50-55%. Mild LVH. Grade 2 diastolic dysfunction.
2. Basal to mid inferolateral wall hypokinesis.
3. Left atrial enlargement.
4. Mild aortic regurgitation.
5. Mild mitral regurgitation.
6. Compared to echocardiogram report 08/01/2024 LVEF has improved from 45-50% to 50-55%. Diastolic function is improved from grade 3 to grade 2. PASP has fallen from 53 mmHg to normal. It is possible PASP is underestimated on today's study.
CXR, 02/13/2025:
IMPRESSION:
As described, radiographic findings most suggestive of interstitial pulmonary edema pattern with small bilateral pleural effusions.
CARY, 02/16/2025:
SUMMARY
1. Mildly reduced left ventricular function with estimated ejection fraction of 45 to 50%. Some limitations to left ventricular function assessment as noted below.
2. No evidence of thrombus in the left atrium or left atrial appendage.
3. Mild aortic regurgitation.
4. Mild mitral regurgitation.
5. Mild to moderate plaque in the descending thoracic aorta.
Physical Exam
Vital Signs/Labs
Vital Signs
Temp Pulse Resp BP Pulse Ox
36.5 C 126 20 108/94 95
02/17/25 03:40 02/17/25 04:00 02/17/25 03:40 02/17/25 03:40 02/17/25 03:40
02/15/25 02/16/25 02/17/25
11:59 11:59 11:59
Actual Weight 79.6 kg 77.4 kg 75.2 kg
02/17/25 03:48
02/16/25 02:33
APTT Cancelled 02/15/25 19:00
Magnesium 1.9 mg/dl (1.6-2.3) 02/14/25 03:22
Triglycerides 88 mg/dl (10-149) 02/14/25 03:22
LDL Cholesterol, Calc 42 mg/dl 02/14/25 03:22
VLDL Cholesterol, Calc 17 mg/dl (0-30) 02/14/25 03:22
HDL Cholesterol 48 mg/dl 02/14/25 03:22
02/13/25
09:53
Vfv-X-Ollfhciseut Pept 3400
Physical Exam
Constitutional: No acute distress and Comfortable
EENT: Anicteric and Moist mucous membranes
Cardiovascular: Pedal edema is absent, JVD pressure is normal, Rhythm/rate is irregular, S1S2 is normal and Murmur/rub/gallop absent
Respiratory: Respiratory effort normal, Lungs clear to auscul., Wheeze Absent, Crackles Absent and Rhonchi Absent
GI: Soft, Distention absent, Flat, Non tender and Normal bowel sounds
Neuro/Psych: AO x 3
Data Reviewed
-
Date of Service: February 17, 2025
Medical Decision Making: Reviewed Test Results, Independent Historian Assessment and Test Interpretation
EKG: Tracing Personally Visualized and interpreted and Report Reviewed by me
Echo: Tracing Personally Visualized and interpreted and Report Reviewed by me
X-Ray/CT/US/MRI/NUC/PET: Image Personally Visualized and interpreted and Report Reviewed by me
Labs: Labs Reviewed by me
Old Records: Reviewed
[2025-02-17] MEDS: CARDIZEM CD 360 MG PO (07:58)
[2025-02-17] MEDS: TOPROL XL 25 MG PO ×2 (08:01→20:38)
[2025-02-17] MEDS: ZESTRIL 2.5 MG PO (08:01)
[2025-02-17] MEDS: PLAVIX 75 MG PO (08:02)
[2025-02-17] MEDS: LASIX 40 MG PO (08:02)
[2025-02-17] MEDS: ELIQUIS 5 MG PO ×2 (08:02→19:46)
[2025-02-17] MEDS: FARXIGA 10 MG PO (08:02)
[2025-02-17 08:30] LABS: Glucose - Point of Care 119 mg/dl (70-99)
[2025-02-17] MEDS: NOVOLOG FLEXPEN-LOW RESISTANCE SC ×3 (08:30→18:31)
--- NOTE | 2025-02-17 10:13 | PTCARENOTE ---
Pt ambulating in room, gait steady, denies pain, denies SOB, visiting.
--- NOTE | 2025-02-17 11:37 | W.PN.HOSP.TC ---
Today's Communication/Plan
-
.
Assessment / Plan
Assessment / Plan
Derian Pyle is a 79 y/o male PMHx of CAD (STEMI s/p PCI), persistent a-fib, HTN, HLD, and NIDDM who presented to the ED with cough and shortness of breath progressively worsening over the past 2 weeks and found to be tachycardic with increased
oxygen demands, BNP of 3400, and CXR indicative of pulmonary edema. Patient was admitted for acute CHF exacerbation secondary to atrial fibrillation with rapid ventricular response. S/p failed TEECV on 02/17.
1. Acute Heart Failure Exacerbation 2/2 Atrial Fibrillation with Rapid Ventricular Response
- Management per Cardiology
- ECHO (12/2024): LVEF has improved from 45-50% to 50-55%. Diastolic function is improved from grade 3 to grade 2. PASP has fallen from 53 mmHg to normal.
- ECHO (02/14/2025): No change from above.
- Continue PO Lasix; improving clinically
- GDMT as per cardiology
- Lasix 40mg PO, Metoprolol 25mg BID (increased from daily), Lisinopril 2.5 mg daily
- Start Dapagliflozin 10 mg daily
- MRA not indicated
2. Atrial Fibrillation with Rapid Ventricular Response
- Initially on Cardizem drip, discontinued
- Started on Cardizem 120 mg PO by cardiology, increased to 360 mg on 02/17
- Loaded with digoxin and started on 125 mcg daily.
- S/p atempted CARY CV on 02/16 with 4 second reprieve into NSR, but return to a/fib
- Rates into the 120s this AM
- CHADS2-VaSc = 6
- Eliquis restarted (urologic procedure delayed)
- Outpatient EP follow up for potential ablation
- Dispo planning, will need better control of rates
3. Acute Hypoxic Respiratory Insufficiency (resolved)
- Not currently on supplemental O2
4. CAD s/p PCI
- Plavix restarted (urologic procedure delayed)
- Continue ASA 81mg
- Continue Statin
5. Eseential HTN
- Continue metoprolol and lisinopril
6. Hyperlipidemia
-Continue atorvastatin
7. Diabetes Mellitus, Type II
-Hold metformin
-Montior sugars and continue coverage insulin
8. BPH
-Monitor bladder scans
9. Scheduled for Urologic Procedure
- Delayed, patient will need to be on anticoagulation for least 1 month after CARY CV
DVT PPx: On Hep gtt
Code Status: Full Code
Diet: Low CHO
Anticipated Discharge: Within 24 hours
Subjective/Interval History
-
Date of Service: February 17, 2025
Patient with no acute complaints this morning (late entry).
Denies chest pains, shortness or breath, cough, worsened LE edema.
Does not get sensations of palpitations in atrial fibrillation.
Objective Data
-
Labs:
Laboratory Results
02/17/25
03:48
WBC 8.7
Hgb 15.9
Hct 47.1
Plt Count 172
Vital Signs:
Vital Signs
Temp Pulse Resp BP Pulse Ox
97.9 F 54 16 118/89 95
02/17/25 11:12 02/17/25 11:12 02/17/25 11:12 02/17/25 09:59 02/17/25 11:12
I&O
02/16/25 02/17/25 02/18/25
06:59 06:59 06:59
Intake Total 480 / 480 240 / 240
Output Total 1625 / 1625 885 / 885
Balance -1145 / -1145 -645 / -645
Review of Systems
-
History Source: Patient
All other systems: Reviewed and negative
Physical Exam
-
General: No Apparent Distress, Comfortable and Conversant
HEENT: Normocephalic, Atraumatic and Moist Mucous Membranes
Respiratory: Clear to Auscultation and Non Labored Respirations; Negative Wheezes, Rales, Rhonchi or Crackles
Cardiac: Irregular Rhythm
GI: Soft
Musculoskeletal: No Clubbing, No Cyanosis and Other (trace edema to the level of the ankles bilaterally)
Skin: Warm
Neuro: Awake, Alert and Oriented
Psych: Calm
Data Reviewed
-
Labs: Labs Reviewed by me and Discussed with Patient
[2025-02-17 13:25] LABS: Glucose - Point of Care 127 mg/dl (70-99)
--- NOTE | 2025-02-17 14:16 | CM ---
Chart reviewed. Patient lives with his in a 4 STH, 0 JAKOB, 0 DME. Plan is for the patient to return home. CM to follow
--- NOTE | 2025-02-17 15:52 | PTOTSP ---
Reviewed chart and s/w RN who reports pt has been independently ambulating to visitor dari at end of hallway. Agreed pt does not need PT services acutely. Will sign off.
--- NOTE | 2025-02-17 17:54 | PTCARENOTE ---
Pt HR remains 100-140's in A-fib. Dr Pack aware. Pt offers no complaints.
[2025-02-17] MEDS: LIPITOR 40 MG PO (18:15)
[2025-02-17 18:30] LABS: Glucose - Point of Care 138 mg/dl (70-99)
[2025-02-17 22:11] LABS: Glucose - Point of Care 127 mg/dl (70-99)
--- NOTE | 2025-02-18 00:22 | PTCARENOTE ---
Tele remains Afib. HR 90-110's at rest. HR in the 120-140's w/ ambulations. Patient denies any palpitations or chest discomfort. Ambulates self in room and hallways. Denies any dizziness. Remains AAox3, ROSEBUD, and forgetful at times. Pt aware of POC.
Call jospeh in reach.
[2025-02-18 03:58] VITALS: BP 130/81
[2025-02-18 04:06] VITALS: BMI 28.0
[2025-02-18 04:56] LABS: Blood Urea Nitrogen 18 mg/dl (9-20); Calcium 9.0 mg/dl (8.4-10.2); Carbon Dioxide 27 mmol/L (22-30); Chloride 107 mmol/L (98-107); Estimated Creatinine Clearance 74 ml/min; Glucose 128 mg/dl (70-99); Potassium 3.7 mmol/L (3.5-5.1); Sodium 137 mmol/L (135-145); eGFR > 60.00
--- NOTE | 2025-02-18 07:07 | W.PN.CD ---
Today's Communication / Plan
-
Increase metoprolol to 75 mg daily (from 25 mg BID).
HR is acceptable for outpatient follow up.
Discharge planning.
Outpatient EP evaluation for ablation.
Impression / Plan
-
Impression/Plan: 79 y/o male with NIDDM, persistent atrial fibrillation, CAD with STEMI s/p culprit PCI (CSI + Medtronic [place] 4.0 x 38 LOLA, 08/05/2024) and PCI of residual ostial LAD disease (Medtronic [place] 3.5 x 22 LOLA with kissing balloon
inflation to establish a eliana-tyrel), ischemic cardiomyopathy (LVEF 45-50%) admitted with shortness in breath with RVR of his AF.
#Atrial fibrillation
-Persistent.
-Unsuccessful CARY DCCV.
-Rate control with metoprolol 25 mg BID, digoxin 125 mcg daily (after load) and diltiazem to 360 mg daily (previously on gtt @ 15 mg/hour).
-HR now 90-110 bpm. Increase metoprolol succinate to 75 mg daily.
-CHADS2-Vasc = 6 (CHF, HTN, Age x2, DM, vascular disease).
-Anticoagulation with apixaban 5 mg BID.
-Plan for outpatient EP consultation to discuss AF ablation.
#HFpEF
-Acute, severe exacerbation requiring diuresis with IV furosemide.
-TTE 02/14/2025: LVEF 50-55%, basal to mid inferolateral hypokinesis, mild AR, mild MR, PASP 22 mmHg.
-GDMT as hemodynamics will tolerate:
-Diuretics: Furosemide 40 mg PO daily.
-Beta woo: Increase metoprolol succinate to 75 mg daily.
-ACEI/ARB/ARNi: Lisinopril 2.5 mg daily.
-MRA: None.
-SGLT2i: Dapagliflozin 10 mg daily.
-ICD: Not currently indicated.
#Coronary artery disease
-Chronic, stable.
-History of myocardial infarction with PCI of culprit LCx and non-culprit LAD.
-Clopidogrel on hold for surgery as previously noted. Switched to ASA 81mg.
-Continue atorvastatin.
#Cystocele
-Chronic, stable.
-Additional management as directed by urology.
-No plan for elective urologic procedure at this time. Procedure will be delayed. Patient will need to be on uninterrupted anticoagulation for at lest one month post CV.
Subjective/Interval History:
HR better controlled on diltiazem 360 mg daily (~90-110).
BP tolerating higher dose.
Feels well.
DATA:
Cardiac catheterization/PCI, 08/05/2024:
CONCLUSIONS
1. Right dominant circulation with a 70% lesion in the proximal margin of the RCA, along, 50% lesion in the mid RCA as it approaches the crux, a 50% lesion in the distal RCA spanning the origin of the small RPDA, a densely calcified 70% lesion in
the proximal LAD with densely calcified moderate disease throughout the remainder of the LAD and large diagonal and a large size, nondominant circumflex with a densely calcified initially 100% lesion in the ostium that progresses into a densely
calcified 70% lesion in the ostium of OM 2, status post aspiration thrombectomy (YANIRA catheter), CSI orbital atherectomy (CSI diamondback) and successful IVUS guided PCI (Medtronic Rafa [place] 4.0 x 38 LOLA, postdilated with a 4.0 NC balloon) with
reduction in the circumflex stenoses to 0%, restoring VIJAYA-3 flow.
2. Moderately elevated filling pressures (LVEDP = 22 mmHg at 84.4 kg).
3. Paroxysmal atrial fibrillation, converted after amiodarone bolus.
Cardiac Catheterization/PCI, 08/06/2024:
CONCLUSION: Successful IVUS-guided PCI with LOLA to LAD ([place] 3.5 x 22 mm drug-eluting stent) with POBA of the ostial LCx stent to achieve kissing balloon inflation at the neocarina (3.5 NC balloons in both the LAD and LCx).
Cardiac Catheterization/iFR, 08/25/2024:
CONCLUSIONS
1. Right dominant circulation with patent stents in the ostia of the LAD and circumflex, a 50-60% lesion in the mid LAD immediately after the origin of the sole diagonal, a 60% lesion in the proximal margin of the diagonal and nonocclusive tandem
50% lesions in the proximal and mid/distal RCA (IFR = 0.93).
2. Mildly elevated filling pressures (LVEDP = 18 mmHg at 81.0 kg).
3. Known persistent atrial fibrillation.
TTE, 12/28/2024:
SUMMARY
1. Low normal LV systolic function. LVEF 50-55%. Mild LVH. Grade 2 diastolic dysfunction.
2. Basal to mid inferolateral wall hypokinesis.
3. Left atrial enlargement.
4. Mild aortic regurgitation.
5. Mild mitral regurgitation.
6. Compared to echocardiogram report 08/01/2024 LVEF has improved from 45-50% to 50-55%. Diastolic function is improved from grade 3 to grade 2. PASP has fallen from 53 mmHg to normal. It is possible PASP is underestimated on today's study.
CXR, 02/13/2025:
IMPRESSION:
As described, radiographic findings most suggestive of interstitial pulmonary edema pattern with small bilateral pleural effusions.
CARY, 02/16/2025:
SUMMARY
1. Mildly reduced left ventricular function with estimated ejection fraction of 45 to 50%. Some limitations to left ventricular function assessment as noted below.
2. No evidence of thrombus in the left atrium or left atrial appendage.
3. Mild aortic regurgitation.
4. Mild mitral regurgitation.
5. Mild to moderate plaque in the descending thoracic aorta.
Physical Exam
Vital Signs/Labs
Vital Signs
Temp Pulse Resp BP Pulse Ox
36.5 C 102 18 130/81 95
02/18/25 03:58 02/18/25 05:00 02/18/25 03:58 02/18/25 03:58 02/18/25 03:58
02/16/25 02/17/25 02/18/25
11:59 11:59 11:59
Actual Weight 77.4 kg 75.2 kg 73.9 kg
02/17/25 03:48
02/18/25 04:06
APTT Cancelled 02/15/25 19:00
Magnesium 1.9 mg/dl (1.6-2.3) 02/14/25 03:22
Triglycerides 88 mg/dl (10-149) 02/14/25 03:22
LDL Cholesterol, Calc 42 mg/dl 02/14/25 03:22
VLDL Cholesterol, Calc 17 mg/dl (0-30) 02/14/25 03:22
HDL Cholesterol 48 mg/dl 02/14/25 03:22
02/13/25
09:53
Kou-F-Zshheveqbah Pept 3400
Physical Exam
Constitutional: No acute distress and Comfortable
EENT: Anicteric and Moist mucous membranes
Cardiovascular: Pedal edema is absent, JVD pressure is normal, Rhythm/rate is irregular, S1S2 is normal and Murmur/rub/gallop absent
Respiratory: Respiratory effort normal, Lungs clear to auscul., Wheeze Absent, Crackles Absent and Rhonchi Absent
GI: Soft, Distention absent, Flat, Non tender and Normal bowel sounds
Neuro/Psych: AO x 3
Data Reviewed
-
Date of Service: February 18, 2025
Medical Decision Making: Reviewed Test Results, Independent Historian Assessment and Test Interpretation
EKG: Tracing Personally Visualized and interpreted and Report Reviewed by me
Echo: Tracing Personally Visualized and interpreted and Report Reviewed by me
X-Ray/CT/US/MRI/NUC/PET: Image Personally Visualized and interpreted and Report Reviewed by me
Medical Tests (PFT, Pathology etc): Image Personally Visualized and interpreted and Report Reviewed by me
Labs: Labs Reviewed by me
Old Records: Reviewed
[2025-02-18 07:46] VITALS: BP 130/94
--- NOTE | 2025-02-18 08:52 | W.PN.HOSP.TC ---
Today's Communication/Plan
-
Discharge.
Outpatient follow up with cardiology/EP.
Assessment / Plan
Assessment / Plan
Derian Pyle is a 79 y/o male PMHx of CAD (STEMI s/p PCI), persistent a-fib, HTN, HLD, and NIDDM who presented to the ED with cough and shortness of breath progressively worsening over the past 2 weeks and found to be tachycardic with increased
oxygen demands, BNP of 3400, and CXR indicative of pulmonary edema. Patient was admitted for acute CHF exacerbation secondary to atrial fibrillation with rapid ventricular response. S/p failed TEECV on 02/17.
1. Acute Heart Failure Exacerbation 2/2 Atrial Fibrillation with Rapid Ventricular Response
- Management per Cardiology
- ECHO (12/2024): LVEF has improved from 45-50% to 50-55%. Diastolic function is improved from grade 3 to grade 2. PASP has fallen from 53 mmHg to normal.
- ECHO (02/14/2025): No change from above.
- Continue PO Lasix; improving clinically
- GDMT as per cardiology
- Lasix 40mg PO, Metoprolol 25mg BID (increased from daily), Lisinopril 2.5 mg daily
- Start Dapagliflozin 10 mg daily
- MRA not indicated
2. Atrial Fibrillation with Rapid Ventricular Response
- Initially on Cardizem drip, discontinued
- Started on Cardizem 120 mg PO by cardiology, increased to 360 mg on 02/17
- Loaded with digoxin and started on 125 mcg daily.
- S/p atempted CARY CV on 02/16 with 4 second reprieve into NSR, but return to a/fib
- Metoprolol increased to 75mg daily this morning
- HRs OK for d/c with outpatient f/u with EP per cards
- CHADS2-VaSc = 6
- Eliquis restarted (urologic procedure delayed)
- Outpatient EP follow up for potential ablation
3. Acute Hypoxic Respiratory Insufficiency (resolved)
- Not currently on supplemental O2
4. CAD s/p PCI
- Plavix restarted (urologic procedure delayed)
- Continue ASA 81mg
- Continue Statin
5. Eseential HTN
- Continue metoprolol and lisinopril
6. Hyperlipidemia
-Continue atorvastatin
7. Diabetes Mellitus, Type II
-Hold metformin
-Montior sugars and continue coverage insulin
8. BPH
-Monitor bladder scans
9. Scheduled for Urologic Procedure
- Delayed, patient will need to be on anticoagulation for least 1 month after CARY CV
DVT PPx: On Hep gtt
Code Status: Full Code
Diet: Low CHO
Anticipated Discharge: Today
Subjective/Interval History
-
Date of Service: February 18, 2025
Patient seen and examined while resting comfortably in bed.
Patient with no acute complaints this morning.
Really wants to go home, voiced frustration over continued elevated heart rates.
Objective Data
-
Labs:
Laboratory Results
02/18/25
04:06
Sodium 137
Potassium 3.7
Chloride 107
Carbon Dioxide 27
BUN 18
Creatinine 0.7
Glucose 128 H
Calcium 9.0
Vital Signs:
Vital Signs
Temp Pulse Resp BP Pulse Ox
97.7 F 102 20 130/81 96
02/18/25 07:46 02/18/25 05:00 02/18/25 07:46 02/18/25 03:58 02/18/25 07:46
I&O
02/17/25 02/18/25 02/19/25
06:59 06:59 06:59
Intake Total 240 / 240 240 / 240
Output Total 885 / 885 500 / 500
Balance -645 / -645 -260 / -260
Review of Systems
-
History Source: Patient
All other systems: Reviewed and negative
Physical Exam
-
General: Well Developed, Well Nourished, No Apparent Distress, Comfortable and Conversant
HEENT: Normocephalic, Atraumatic and Moist Mucous Membranes
Respiratory: Clear to Auscultation and Non Labored Respirations; Negative Wheezes, Rales, Rhonchi or Crackles
Cardiac: Irregular Rhythm and Tachycardic
GI: Soft
Musculoskeletal: No Clubbing, No Cyanosis and No Edema
Skin: Warm
Neuro: Awake, Alert and Oriented
Psych: Calm
Data Reviewed
-
Labs: Labs Reviewed by me and Discussed with Patient
[2025-02-18] MEDS: CARDIZEM CD 360 MG PO (10:08)
[2025-02-18] MEDS: LASIX 40 MG PO (10:09)
[2025-02-18] MEDS: ZESTRIL 2.5 MG PO (10:10)
[2025-02-18] MEDS: FARXIGA 10 MG PO (10:10)
[2025-02-18] MEDS: ELIQUIS 5 MG PO (10:10)
[2025-02-18] MEDS: TOPROL XL 50 MG PO (10:10)
[2025-02-18] MEDS: PLAVIX 75 MG PO (10:10)
[2025-02-18] MEDS: NOVOLOG FLEXPEN-LOW RESISTANCE SC ×2 (10:28→13:24)
[2025-02-18] MEDS: TOPROL XL PO (10:28)
[2025-02-18] MEDS: TOPROL XL 25 MG PO (11:26)
--- NOTE | 2025-02-18 11:42 | PTCARENOTE ---
pt afib on the monitor, hr in the 90s, vss. pt educated on plan of care and pt verbalized understanding. pt ambulating through the night and tolerating well. call joseph within reach.
[2025-02-18] MEDS: LANOXIN 125 MCG PO (13:37)
--- NOTE | 2025-02-18 16:25 | PTCARENOTE ---
d/c instructions read to pt and pt verbalized understanding. iv and tele removed. pt left with belongings from room and instructions. pt left via wheelchair with staff member.
--- NOTE | 2025-02-18 17:31 | W.DCSUMMARY ---
Discharge Summary
Discharge Data
Date of Admission: 02/13/25
Date of Discharge: 02/18/25
Total time spent discharging patient (in min): 45
-
Pending Results: No
Hospital Course
Derian Pyle is a 79 year old male with a past medical history of coronary artery disease and NSTEMI status post percutaneous intervention, persistent atrial fibrillation, hypertension, hyperlipidemia, benign prostatic hyperplasia status post
transurethral prostatic resection and ths-[id number] diabetes mellitus who presented to the emergency department at outside [facility] on 02/13/2025 with cough and progressively worsening shortness of breath over the preceding month.
HISTORY OF PRESENT ILLNESS
Patient endorses that he recently been on a trip to [facility]. Patient stated that his symptoms preceded this trip, however, over the course of his vacation, patient endorsed that his symptoms of breath got progressively worse. Patient returned a few
days prior to his presentation to the emergency department. Symptoms are exacerbated by exertion. Patient also endorsed some lower extremity swelling. Additionally, patient noted that he was supposed to have a hydrocele drained by urology that
week and so he had stopped taking his Eliquis and Plavix. He otherwise denies any chest pain, sensations of palpitations, or fevers.
ED COURSE
On presentation patient was well-appearing but tachycardic with irregularly irregular rhythm and mild tachypnea at rest. His vital signs showed heart rates up to the 140s and patient was saturating 89% on room air. Labs were remarkable for a
cardiac BNP of 3400. Chest x-ray revealed pulmonary edema. Patient was admitted to the IVU with acute CHF exacerbation likely secondary to atrial fibrillation with rapid ventricular response.
HOSPITAL COURSE
Rate control was initially attempted with Lopressor without improvement. Patient was then started on a Cardizem drip. With regards to his volume overload status, patient was started on IV Lasix and then transition to oral. An echocardiogram was
done which showed no change from a previous echocardiogram in December 2024; a left ventricular ejection fraction of 50 to 55%, improvement in diastolic function, and normal pulmonary arterial pressures. In addition to Lasix, the patient was
started on goal-directed medical therapy with an SGLT2 inhibitor, beta-woo, and MARY inhibitor. Patient was maintained on a maxed out Cardizem drip and eventually transition to oral medications. Plan was made to attempt a transesophageal
cardioversion on 02/16. The patient went into a 4-second reprieve into sinus rhythm, but then immediately returned to atrial fibrillation. Patient's medications were titrated to Cardizem 360 mg orally daily, digoxin 125 mcg daily, and metoprolol 75
mg daily. Since the patient had not been taking his Eliquis or Plavix in anticipation of a urologic procedure, these were restarted as well. On day of discharge, heart rates were variable (90 to about 130) but stable for continued outpatient
evaluation.
DISCHARGE RECOMMENDATIONS
Follow-up with primary care provider for transition of care visit in less than 1 week.
New medications include metoprolol 75 mg daily, Lasix 40 mg daily, digoxin 125 mcg daily, diltiazem 360 mg daily, Farxiga 10 mg daily
Eliquis was restarted. The patient should remain on Eliquis for 1 month status post attempted cardioversion. Urology was made aware and prostate procedure was delayed.
Plavix was restarted. Urology was made aware and prostate procedure was delayed.
Follow-up with cardiology and the crate opener as mentioned by inpatient team.
For discussion of the risks and benefits of ablation procedure.
Discharge Plan
-
Patient Disposition: Home (Routine Discharge)
Discharge Diagnosis/Procedures: *Acute Heart Failure Exacerbation
*Atrial Fibrillation with Rapid Ventricular Response
*Acute Hypoxic Respiratory Insufficiency
History of CAD
History of PCI
History of Hypertension
History of Hyperlipidemia
History of Type 2 Diabetes Mellitus
History of Benign Prostatic Hyperplasia
Condition: Fair
Diet: Diabetic, Carb Controlled
Activity: As tolerated
Blood Work: Basic Metabolic Panel in One Week (Lasix naive prior to admission)
Specialty Instructions: Weigh Daily- Call MD for wt gain/loss 3 lbs overnight/5 lbs in 1 week
Instructions: *CBC Heart Failure Instructions
Referrals:
Charissa Matamoros MD [Active, Cardiology]
Referral Note: Electrophysiology
Nora Gonzalez MD [Family Provider, [facility]] - in less than 1 week
Prescriptions:
New
diltiazem HCl 120 mg Capsule,Extended Release 24hr
360 mg PO DAILY Qty: 60 0RF
dapagliflozin propanediol 10 mg Tablet
10 mg PO DAILY Qty: 30 0RF
furosemide 40 mg Tablet
40 mg PO DAILY Qty: 30 0RF
metoprolol succinate 25 mg Tablet Extended Release 24 Hr
75 mg PO DAILY Qty: 60 0RF
digoxin 125 mcg (0.125 mg) tablet
125 mcg PO DAILY Qty: 30 0RF
Continued
metformin 500 MG tablet
500 mg PO BID
nitroglycerin 0.4 mg tablet, sublingual
0.4 mg sublingual [id number] PRN (Reason: chest pain) Qty: 25 5RF
atorvastatin 40 mg Tablet
40 mg PO QPM Qty: 90 5RF
clopidogrel 75 mg Tablet
75 mg PO DAILY Qty: 90 5RF
lisinopril 2.5 mg Tablet
2.5 mg PO DAILY Qty: 90 5RF
Eliquis 5 mg tablet
5 mg PO BID Qty: 60 5RF
Discontinued
metoprolol succinate 25 mg Tablet Extended Release 24 Hr
25 mg PO DAILY
aspirin 81 mg Capsule
81 mg PO DAILY
Rx Instructions:
per patient- temporary medication in place of eliquis prior to hydrocelle procedure wed
Discharge Orders:
Discharge Patient (As Directed); Ordered 02/18/25
Ordered By: Shashi Taveras
Care Plan Goals
Care Plan Goals:
Problem: Readiness for enhanced knowledge related to diagnosis and treatment plan
Goal: Understand your diagnosis and treatment plan needs, including medications if applicable.
Instructions: Know your diagnosis, underlying causes and treatment plan options, including medications if applicable. Consult with your health care team to learn about your diagnosis and treatment plan, including medications if applicable.
Discharge Date and Time
Discharge Date/Time: 02/18/25 16:34
Print Language: GRENADIAN
--- NOTE | 2025-02-21 10:03 | W.HF.CON ---
Heart Failure
- LV Function
Left ventricular function study result: LV Ejection fraction >/= 50%
Ejection Fraction Percentage: 50-55
- ARNI
Patient already on ARNI: No
Heart Failure ARNI Not Indicated: LV Ejection Fraction >/= 40%
- ACEI/ARB
Patient already on ACEI/ARB: Yes
- Beta Sheri
Patient already on Evidence Based Beta Sheri: Yes
- Mineralocorticord Receptor Antagonist
Patient already on MRA: No
Heart Failure MRA Not Indicated: LV Ejection Fraction > 40%
- SGLT-2 Inhibitor
Patient already on SGLT-2 Inhibitor: Yes
- Afib Anticoagulation
Patient already on Anticoagulation for Afib: Yes
- NYHA CHF Classification
NYHA CHF Classification Level: Class III - Symptoms w/ min exertion, interferes w/ nml daily activity
- ACC/AHA Stage
ACC/AHA Stage: Stage C: Symptomatic Heart Failure
== END 2025-02-18 16:34 | disposition home or self-care (01) | DRG 291 ==
LOC: IVU 13:00
PROVIDERS: Physician Assistant Medical; ADMITTING PHYSICIAN Hospitalist; ATTENDING PHYSICIAN Internal Medicine; CONSULT PHYSICIAN Internal Medicine Cardiovascular Disease; EMERGENCY PHYSICIAN Student in an Organized Health Care Education/Training Program; FAMILY PHYSICIAN Family Medicine
PROC: B246ZZ4 Ultrasonography of Right and Left Heart, Transesophageal (ICD-10-PCS; 2025-02-16)
PROC: 5A2204Z Restoration of Cardiac Rhythm, Single (ICD-10-PCS; 2025-02-16)
DX: I13.0 Hypertensive heart and chronic kidney disease with heart failure and stage 1 through stage 4 chronic kidney disease, or unspecified chronic kidney disease (principal); I50.43 Acute on chronic combined systolic (congestive) and diastolic (congestive) heart failure; I48.19 Other persistent atrial fibrillation; R09.02 Hypoxemia; I25.10 Atherosclerotic heart disease of native coronary artery without angina pectoris; N18.30 Chronic kidney disease, stage 3 unspecified; E78.00 Pure hypercholesterolemia, unspecified; E11.22 Type 2 diabetes mellitus with diabetic chronic kidney disease; N40.0 Benign prostatic hyperplasia without lower urinary tract symptoms; I25.2 Old myocardial infarction; Z79.84 Long term (current) use of oral hypoglycemic drugs; Z79.01 Long term (current) use of anticoagulants; Z79.02 Long term (current) use of antithrombotics/antiplatelets; Z79.899 Other long term (current) drug therapy; Z95.5 Presence of coronary angioplasty implant and graft; Z90.79 Acquired absence of other genital organ(s); Z11.52 Encounter for screening for COVID-19
CPT/HCPCS: 71046; 80048; 80053; 80061; 82962; 83036; 83735; 83880; 84443; 84484; 85025; 85027; 85730; 87502; 87811; 92960; 93005; 93308; 93312; 93320; 93321; 93325; 96374; 96375; 97162; 97166; 99285; J1160

== ENCOUNTER 2025-03-18 07:54 | Day surgery (SDC) | payer OTHER, SELFPAY ==
[2025-03-09 09:13] VITALS: BMI 28.3
[2025-03-09 09:30] LABS: Hematocrit 45.2 % (39.0-52.0); Hemoglobin 15.5 g/dL (13.0-18.0); Mean Corp Hgb Conc. 34.3 g/dL (33.0-37.0); Mean Corpuscular Volume 81.9 fL (80.0-94.0); Nucleated Red Blood Cells % 0 % (-); Platelet Count 148 10^3/uL (130-400); Red Cell Dist. Width 14.5 % (11.5-14.5)
[2025-03-09 10:35] LABS: ALT (SGPT) 22 U/L (0-50); AST (SGOT) 20 U/L (17-59); Albumin 4.2 g/dl (3.5-5.0); Alkaline Phosphatase 101 U/L (38-126); Blood Urea Nitrogen 26 mg/dl (9-20); Calcium 9.0 mg/dl (8.4-10.2); Carbon Dioxide 27 mmol/L (22-30); Chloride 105 mmol/L (98-107); Estimated Creatinine Clearance 65 ml/min; Glucose 142 mg/dl (70-99); Potassium 4.2 mmol/L (3.5-5.1); Sodium 137 mmol/L (135-145); Total Protein 6.5 g/dl (6.3-8.2); eGFR > 60.00
[2025-03-18] VITALS (10 sets, daily range): BP systolic 94–137; BP diastolic 63–90; BMI 28.7
[2025-03-18 09:14] LABS: Glucose - Point of Care 152 mg/dl (70-99)
[2025-03-18 11:07] LABS: ACT-LR - POC > 397 Seconds (116-155)
[2025-03-18 11:18] LABS: ACT-LR - POC > 397 Seconds (116-155)
[2025-03-18 11:33] LABS: ACT-LR - POC 366 Seconds (116-155)
--- NOTE | 2025-03-18 12:02 | ITS.CL.ABL ---
Gro[facility] Lathe Tender - Ablation
Ablation
Procedure Report:
AFIB / flutter ablation:
Mr. Pyle is a very pleasant 79 yr old gentleman with symptomatic persistent AF and atrial flutters, is recommended AF / flutter ablation.
Date of the Procedure:
03/18/2025
Indications:
Persistent atrial fibrillation / Flutter
Pre-Operative Diagnosis:
Persistent atrial fibrillation / Flutter
Post-Operative Diagnosis:
Persistent atrial fibrillation / Flutter
Procedure Performed:
Atrial fibrillation ablation with Pulsed-Field approach for pulmonary vein isolation
Roof dependent flutter ablation
Posterior wall isolation
Mitral flutter ablation with anterior line
Typical atrial flutter with cavo tricuspid isthmus ablation
Performing Physician:
Charissa Matamoros MD
Assistants:
EP staff
Anesthesia:
See anesthesia records
Detailed Description of the Procedure:
Written informed consent was obtained from the patient after a full explanation of the risks and benefits of the procedure including the risks of sedation and anesthesia.
The patient was brought to the electrophysiology laboratory in stable condition in fasting state. Continuous electrocardiographic and hemodynamic monitoring was initiated.
The initial rhythm was atrial fibrillation.
The procedure site was meticulously prepared with surgical scrub and allowed to dry with no pooling. Sterile draping was applied to cover the procedure site. The image intensifier was draped with sterile bag and positioned over the patient. After
infusion of local anesthetic, vascular access was obtained under ultrasound guidance and sheaths were placed over guide wire as detailed below.
Sheath and Catheter Placement:
The following catheters / sheaths were placed
Sheaths:
17Fr steerable sheath (Movidiusadrive�, Kymeta) in right femoral
9Fr in right femoral vein
7Fr in right femoral vein
Catheters:
KIMBERLYN HD Grid mapping catheter � at locations of RA, LA
Farawave� PFA catheter
ICE catheter -AcuNav - at locations of RA, SVC, and RV.
Decapolar Bard catheter in RA and CS
Intracardiac ECHO:
An 8-[place]au[place] AcuNav intracardiac ECHO (ICE) probe was advanced through the 9-Palauan sheath in the right femoral vein into the right atrium under fluoroscopic and ICE ultrasound image guidance and a baseline ECHO study was performed. The left atrial
size was dilated. There was moderate tricuspid regurgitation. The aortic valve was grossly normal. There was normal left ventricular systolic functions. There is no pericardial effusion. All the four veins were identified and has flow identified.
There was sluggish flow noted in the CLINTON with decreased velocities noted on Doppler.
During the procedure, ICE was used for monitoring of complications, guidance of trans-septal puncture, monitor the catheter position and tracking ablation lesions. No change in the pericardial space noted throughout the procedure.
Trans-septal Puncture:
Heparin was initiated and infused to maintain appropriate ACT. A pigtail guidewire was advanced through the 8-Palauan sheath in the right femoral vein into the superior vena cava under fluoroscopic and ICE guidance. The 9-Palauan sheath was exchanged
for a Faradrive sheath which was advanced into the superior vena cava. A transseptal RF pigtail via Faradrive connect system was utilized to perform the trans-septal puncture. The apparatus was withdrawn until it was in contact with the fossa
ovalis. The position was adjusted based on fluoroscopy and ultrasound images from ICE. Under fluoroscopic, hemodynamic and ICE ultrasound guidance, left atrium was cannulated by applying RF energy. Once atrial septum was cannulated, the pigtail wire
was advanced into the left atrium. The guide wire was advanced into the left superior pulmonary vein. Both the sheath and the dilator was advanced into the left atrium. The dilator with the needle was withdrawn. Blood was aspirated from the
Faradrive sheath and arterial blood confirmed. The sheath was flushed. Saline injection noted into the left atrium on ICE. The mapping catheter was advanced in the sheath into the left pulmonary vein. Left atrial pressure was measured.
3D Electroanatomic Mapping:
Using the HD Grid catheter advanced through sheath into the left atrium, an electroanatomic map (EAM) of the left atrium was created using [employer] mapping system. The map was used for localization of catheter position and tacking of ablation
lesions.
The EAM of the left atrium showed 4 pulmonary veins with all 4 veins electrically connected to the body the LA. It showed extensive areas of scar on the anterior wall of the LA with scattered scar on the posterior wall. The LA was dilated in size.
Following the EAM, preparation were made for ablation.
Ablation:
Ablation # 1: Pulmonary vein Isolation:
Glycopyrrolate 0.2 mg was given prior to the placement of ablation. Using Farawave pulsed field ablation system, pulmonary vein isolation was achieved. First the ablation catheter was placed in the LSPV and ostial ablation lesions were performed in
an �[place]� formation of the Farawave configuration and a counter clock oh rotation was done and ablated to cover the area between the electrodes. Then the catheter was placed on the antral location in �Flower� configuration and multiple ablation
lesions were placed circumferentially on the antrum of the vein.
In the similar fashion, the LIPV were isolated.
Then the catheter was moved to right sided veins. The ostial and antral ablations were placed as noted above.
Patient remained in atrial fibrillation.
Ablation #2: Roof dependent flutter ablation
Patient had hx of atrial flutter and the rhythm was switching from AF to FL to AF during the case. The flutter was coming from the LA. The entrainment could not be done due to degeneration into atrial fibrillation.
This was consistent with roof dependent atrial flutter judy with extensive scar and channels conduction on the posterior wall.
Using the pulsed field ablation catheter, the catheter was placed between left superior pulmonary vein and right severe pulmonary vein with series of overlapping ablation lesions placed.
Ablation # 3: Posterior wall isolation:
Using the pulsed field ablation catheter, the catheter was placed on the posterior wall and moved around the posterior wall to have adequate contact and ablations were placed isolating the posterior wall.
EPS and Confirmation of the PVI and bidirectional block:
Following achievement of entrance block at the pulmonary veins, pacing from the HD catheter in each of the four veins at 10 milliamps for 2 milliseconds showed entrance and exit block. All PVI were rechecked at the end of the case and remained
isolated. Entrance and exit block were demonstrated in all veins.
While mapping, patient went back into atrial flutter /fibrillation.
Ablation # 4: Mitral Flutter ablation:
With significant scarring noted on the anterior wall, with patient's flutter and atrial fibrillation warranted additional ablation.
A series of ablations were placed using the Farapulse ablation catheter on the anterior wall. The the ablation cathere was put on the anterior wall between the left atrial appendage and right superior pulmonary vein in �Flower� shape, then continued
these ablations to mitral annulus on the heterogenous zones of abnormal signals and scarring and block was achieved.
Patient then went into atrial flutter that likely was involving both atria and earliest was on the left atrial septum.
Ablation # 5: Bi-Atrial Flutter Ablation:
The new tachycardia was better organized and was again earliest at the atrial septum consistent with biatrial flutter. Using the Farapulse ablation catheter, the flower was placed on the atrial septum and ablation was placed. The tachycardia changed
into typical atrial flutter.
Post ablation Electroanatomic mapping:
Once ablation was completed, the EAM of the LA was done again in sinus rhythm with excellent demarcation of LA myocardium and isolated antral tissue. There was extensive scarring of the LA noted consistent with pre-ablation scar.
The CLINTON had healthy signals and was not isolated.
The LA was mapped in flutter and was noted to be coming from the RA and LA was activated passively from septum.
The catheters were removed to the RA.
Electroanatomic mapping of the right atrium:
Using the HD Grid catheter advanced through Faradrive sheath into the right atrium, an electroanatomic map (EAM) of the right atrium was created using KIMBERLYN mapping system with HD Grid.
Ablation # 6: Typical Atrial Flutter Ablation:
Patient was noted to be in atrial flutter 290 ms CL. The CS was showing concentric activation. The Entrainment showed the proximal CS was close to the circuit but the distal CS was out. The EAM of the tachycardia was created that showed typical
counter clockwise flutter.
With anticipation of pulsed field energy deliver at the CTI, a 50 mcg of Nitroglycerin was injected into the RA.
The ablation was performed using Farawave� PFA catheter from the tricuspid annulus to the IVC ridge. The first application was done in [place] formation placing the ablation catheter on the tricuspid isthmus to with ICE visualization. With first
ablation, the flutter terminated into sinus rhythm. Further ablation lesions were placed with the �Flower� shape on the CTI to the Eustachian ridge.
-Bidirectional block was confirmed across the CTI line with differential pacing.
-Double potentials were spaced greater than 112 msec apart.
-The conduction time across the CTI line from proximal CS pacing was 180 msec.
-EAM of the right atrium was obtained with coronary sinus pacing and showed a line of block at the CTI.
-The time interval just lateral to the ablation lesions was 180 msec and the lateral wall was 112 msec
- All these maneuvers confirmed the block at the CTI line.
- Post ablation HV interval was unchanged at 45msec
Procedure End
ICE study was done again that showed no epicardial accumulation. No complications noted.
Following the completion of the EP study, catheters were removed. Protamine 40 mg was given at the end of the procedure and ACT was checked repeatedly. The sheaths were removed and hemostasis achieved with Figure of 8 and manual compression after
acceptable ACT is achieved.
Total Number PFA ablation lesions
88
Left atrial Pressure:
Preablation: Mean LA pressure was 15mmHg (AF)
Post ablation: Mean LA pressure was 14mmHg (sinus)
Post ablation: Mean RA pressure was 5mmHg (sinus)
Estimated Blood loss:
<10 cc
Specimens Removed:
None.
Implants / Devices:
None
Urine output:
None
Packs / Drains/ Tubes:
None
Instrument / Sponge Count Correct:
Yes
Complications of the Procedure:
None
Condition of Patient at Time of Transfer:
Hemodynamically stable with no neurological or vascular compromise.
Summary:
Successful atrial fibrillation ablation with Pulsed Field approach for pulmonary vein isolation, posterior wall isolation, roof flutter ablation, mitral flutter ablation, Biatrial flutter ablation, typical CTI dependent flutter ablation
Figures from the Procedure:
Figure 1: The electroanatomic mapping (EAM) of the left atrium with bipolar voltage (purple indicates normal electrical activity with booth as no myocardial muscle electric activity indicating a line of block or scar.
[2025-03-18 13:10] LABS: Glucose - Point of Care 194 mg/dl (70-99)
--- NOTE | 2025-03-18 15:56 | W.PN.UPDATE ---
Update Note
Progress Note Update
Pt seen post PFA. Right groin site without ht/bleeding, non tender. OOB ambulating, urinating without difficulty. Post EKG NSR 68, no acute changes. Resume eliquis tonight at usual time. OK to resume plavix in AM. Decrease metoprolol xl to 50mg
daily and diltiazem to 240mg daily, will stop digoxin at this time. Followup at [facility] in 2 weeks as scheduled. Home today if groin site/tele remain stable.
== END 2025-03-18 16:40 | disposition home or self-care (01) ==
LOC: CATH 07:54
PROVIDERS: ATTENDING PHYSICIAN Internal Medicine Cardiovascular Disease; FAMILY PHYSICIAN Family Medicine; OTHER PHYSICIAN Internal Medicine Cardiovascular Disease
DX: I48.19 Other persistent atrial fibrillation (principal); I48.92 Unspecified atrial flutter; I10 Essential (primary) hypertension; I25.10 Atherosclerotic heart disease of native coronary artery without angina pectoris; I25.5 Ischemic cardiomyopathy; E11.9 Type 2 diabetes mellitus without complications; E78.2 Mixed hyperlipidemia; Z79.01 Long term (current) use of anticoagulants; Z79.02 Long term (current) use of antithrombotics/antiplatelets; Z79.899 Other long term (current) drug therapy; Z79.84 Long term (current) use of oral hypoglycemic drugs
CPT/HCPCS: C1732; C1894; C1892; C1769; C1759; C1730; 36415; 80053; 82962; 85025; 85347; 86850; 86900; 86901; 93005; 93655; 93656; 93657; C1733; C1766